=== PATIENT | male | born 1975 | race Hispanic/Latino ===

== ENCOUNTER 2025-08-24 09:40 | Inpatient (IN) | payer OTHER ==
[~2025-08-24] VITALS: Ht 167.6 cm; Wt 114.3 kg
[2025-08-24 11:30] VITALS: BP 139/66; PULSE 50; RESP 22; TEMP 98.1
--- NOTE | 2025-08-24 13:23 | CONS ---
[facility] CARDIOLOGY CONSULTATION REPORT Date Patient Seen: Aug 24, 2025 Time of Visit: 12:45 Requesting Physician: Luis Loya MD Reason for Consultation: CAD History of Present Illness: This is a 49-year-old Latin-Salvadorean male with a past medical history of hypertension, hyperlipidemia on no medical therapy who initially presented to [facility] on 08/23/2025 due to a syncopal episode and associated chest pain. In the business applications developer hours of 08/23/2025 at approximately 3:00 a.m., the patient woke up suddenly complaining of dyspnea and chest pain, he sat up at the edge of the bed and then sustained a syncopal episode. His witnessed that his arms became tense, he fell back onto the bed and had a few seconds of loss of consciousness with the associated bladder incontinence. She did about 3 chest compressions and he regained consciousness. His substernal chest discomfort was described as burning radiating to his neck, there was associated diaphoresis. EMS was summoned and transported him to the hospital. The patient was noted to have a troponin level of 0.044, 0.097 and 0.099 and was admitted for further management. His admission labs were also remarkable for hemoglobin of 14.8, hematocrit of 43.5 and a platelet count of 262. Sodium 134, potassium 4.2, BUN 12 and creatinine of 0.9. BNP of 35. Urine drug screen was negative. He was admitted for further management. He underwent a cardiac catheterization on 08/24/[address] Mushtaq Hernandez demonstrating severe multivessel coronary artery disease including a 99% proximal to mid LAD stenosis, 80% mid LAD stenosis, 70% stenosis in diagonal 2, 50% proximal left circumflex and 70% mid left circumflex stenosis and 80% mid RCA stenosis and 70% distal RCA stenosis. He was transferred to [facility] for coronary artery bypass revascularization. He offers no recurrent chest pain. He does report family history of premature coronary artery disease with 2 brothers having heart disease in her 40s. The patient was also chronic tobacco user reporting 35 years of tobacco use of 2 packs per day, quit 1 year ago. Past Medical History: Hypertension Hyperlipidemia Prior heavy tobacco use, quit 1 year ago Familial premature coronary artery disease Prior rectal bleed with recent colonoscopy demonstrating hemorrhoids Past Surgical History: Prior lumbar spine surgery Left eye surgery to include retinal surgery Family History: 2 brothers with a history of premature coronary artery disease in her 40s Social History: The patient is . 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 Habits: He was a longstanding smoker of 35 years 2 packs per day, quit 1 year ago. Occasionally consumes alcohol but denies illicit drug use Home Meds: None currently Review of Systems: CONST: No fever, fatigue, or weight changes. EYES: No recent vision problems. ENT: No congestion, ear pain, or sore throat. C/V: As per HPI. Denied any palpitations. RESP: No cough, congestion, wheezing or shortness of breath. Positive for loud snoring at times and periods of apnea GI: No abdominal pain, nausea, vomiting, constipation, or diarrhea. : No incontinence or dysuria. SKIN: No rash. NEURO: No headache, focal numbness or weakness, dizziness, or seizures. PSYCH: No depression or anxiety. HEME: No abnormal bruising or bleeding. LYMPH: No swollen glands. Physical Examination: GENERAL: No acute distress. HEAD: Normal with no signs of head trauma. EYES: PERRLA, EOMI, conjunctiva and sclera normal. ENT: Hearing grossly intact, normal oropharynx. NECK: Supple without JVD. There is no tenderness, lymphadenopathy, or masses. No thyromegaly. Normal carotid upstrokes without bruits. LUNGS: Clear breath sounds bilaterally. No wheezes, or rhonchi. HEART: Normal rate and rhythm. Normal S1 and S2 without murmurs, gallop or rub. VASC: Peripheral pulses +2 bilaterally. Right radial catheterization site with small dressing, no edema or hematoma ABD: Bowel sounds normal, soft, nontender, no masses, no organomegaly. No audible bruits. : Not examined LYMPH: No lymphadenopathy noted. EXT: No clubbing, cyanosis or edema. SKIN: No rashes or lesions noted. NEURO: Awake, alert, and oriented x3. No focal sensory or strength deficits noted. Vital Signs (last 8hr) Date Time Temp Pulse Resp B/P (MAP) Pulse Ox O2 Delivery O2 Flow Rate FiO2 08/24/25 11:30 98.1 50 22 139/66 98 Room Air Laboratory: Diagnostics / Radiology: Bilateral carotid Doppler exam 08/23/2025 demonstrated nonobstructive plaque in the left internal carotid artery of 20-30% Right internal carotid artery with 30-40% stenosis and no flow in the right vertebral artery may reflect occlusion Impression and Plan: Small non ST segment elevation DE with troponin of 0.099: Severe multivessel coronary artery disease by cardiac catheterization, with 99% proximal LAD stenosis 08/24/2025: -obtain 1 set of high sensitivity cardiac troponin here -begin IV heparin protocol and topical nitrates -continue with plans for antiplatelet therapy with aspirin 81 mg p.o. daily, statin therapy with combination of ezetimibe -the patient has sinus bradycardia with a heart rate of 50 beats per minute and we will investigate if he was initiated on beta-jem therapy at [facility] but the patient reports he is known to have longstanding slow heart rate in the past -surgical consultation is pending -Obtain 2D echocardiogram - smoking cessation counseling Mixed dyslipidemia: -Lipid panel 08/24/2025 demonstrating total cholesterol of 216, triglycerides 157, HDL 38 and LDL of 183 -continue atorvastatin 80 mg daily -add ezetemibe 10mg po daily Hypertension: -trend blood pressure and restart medications as he was taking at [facility] Prediabetes: -Check HgA1c Nonobstructive carotid artery disease by carotid Doppler exam 08/23/2025 demonstrating: -Bilateral carotid Doppler exam 08/23/2025 demonstrated nonobstructive plaque in the left internal carotid artery of 20-30% -Right internal carotid artery with 30-40% stenosis and no flow in the right vertebral artery may reflect occlusion -continue plans for antiplatelet therapy Probable sleep apnea: -Will need outpatient follow up and sleep study PHYSICIAN ATTESTATION OF PHYSICIAN COOK [employer] AND CHIPS DOCUMENTATION: I attest that I was physically present for the spann portions of the service and evaluated the patient with the Physician Vc++ Developer, and I reviewed and discussed the case with the Physician Vc++ Developer and made modifications to the Physician Vc++ Developer's findings and plans of care as documented above MICHELLE BURGOS Aug 24, 2025 13:23 JAMES BARBOSA MD Aug 24, 2025 13:40
[2025-08-24] MEDS ORDERED: NITROGLYCERIN 30 GM TUBE TD SCH (13:30)
[2025-08-24] MEDS ORDERED: NITROGLYCERIN 0.4 MG SL TAB SL PRN (13:30)
[2025-08-24 13:34] LABS: IMMATURE GRANULOCYTE ABSOLUTE 0.01 K/uL (0-1); NUCLEATED RED BLOOD CELLS 0.0 % (0.0-0.19); PLATELET COUNT (AUTO) 256 K/uL (130-400); RED BLOOD CELL COUNT(AUTO) 4.63 MIL/uL (4.50-6.20); RED CELL DISTRIBUTION WIDTH 13.4 % (11.0-15.5); WHITE BLOOD COUNT (AUTO) 7.5 K/uL (4.8-10.8)
[2025-08-24 13:36] LABS: INR 0.94 (0.85-1.15)
[2025-08-24 13:49] LABS: ASPARTATE AMINOTRANSFERASE 27.0 U/L (10-37); CREATININE 0.9 mg/dL (0.5-1.3); GLOMERULAR FILTR. RATE CALC 104.0 mL/min (>90); GLUCOSE,RANDOM 90.0 mg/dL (70-105); LDL DIRECT 156.0 mg/dL (0-99); SODIUM SERUM 137.0 mmol/L (136-145); TOTAL PROTEIN, SERUM 7.3 g/dL (6.0-8.3); UREA NITROGEN, BLOOD 12.0 mg/dL (7-18)
--- NOTE | 2025-08-24 14:54 | HMCIMG ---
EXAM: CR Chest, 1 View. CLINICAL HISTORY: assess for any significant infiltrates, pre op for CABG COMPARISON: None provided. FINDINGS: LUNGS: The lungs show no infiltrate or other acute finding. PLEURAL SPACES: No evidence of pleural effusion or pneumothorax. MEDIASTINUM: Cardiac size and mediastinal contours within normal limits. BONES: No aggressive appearing osseous lesion seen. IMPRESSION: No acute cardiopulmonary pathology is evident. /[place]
[2025-08-24] MEDS ORDERED: MAGNESIUM SULFATE 1 GM/2 ML VIAL IM ONE (15:10)
[2025-08-24] MEDS ORDERED: LIDOCAINE PF 100MG/5ML (2%) SYRINGE 5ML IVP ONE (15:10)
[2025-08-24] MEDS ORDERED: CACL 1GM SYG IVP ONE (15:10)
[2025-08-24] MEDS ORDERED: MANNITOL 25% 50ML VIAL IV ONE (15:10)
[2025-08-24] MEDS ORDERED: ALBUMIN (HUMAN) 25% 50 ML IV ONE (15:10)
[2025-08-24] MEDS ORDERED: SODIUM BICARB 8.4% 50ML SYRINGE IVP ONE (15:10)
[2025-08-24 16:00] VITALS: BP 120/67; PULSE 52; RESP 24; TEMP 97.9
[2025-08-24] MEDS ORDERED: PoTASSium chloRIDE 20MEQ ER 20 MEQ ERTAB PO PRN (16:00)
[2025-08-24] MEDS ORDERED: PoTASSium chl 10% ELIXIR 20MEQ 20 MEQ/15 ML UDCUP PO PRN (16:00)
--- NOTE | 2025-08-24 16:00 | HP ---
[facility] HISTORY AND PHYSICAL Date of Service: Aug 24, 2025 Time of Service: 15:52 HISTORY OF PRESENT ILLNESS: Date of service: 08/24/2025, patient was seen in [facility] room 224 This is a 49-year-old male with underlying history of obesity, hyperlipidemia who presented as a transfer from [facility] for evaluation by cardiovascular surgery for coronary artery bypass grafting. Patient and family reports that he initially presented to [facility] on 08/23/2025 when he had presented with chest pain and syncopal episode. Patient woke up close to 3:00 a.m. on 08/23/2025 with complaints of dyspnea and chest pain. He sat at the edge and had a syncopal episode. reported doing about three chest compressions and patient regained consciousness. Patient on presentation to [facility] ER was noted to have mild elevation of troponin. CT head without contrast showed no acute intracranial abnormality. Patient was admitted with NSTEMI and underwent cardiac catheterization by Dr. Mushtaq Hernandez today was found to have severe multivessel coronary artery disease with findings of 99% proximal to mid LAD stenosis, 80% mid LAD stenosis, 70% stenosis in diagonal 2, 50% proximal left circumflex and 70% mid left circumflex stenosis and 80% mid RCA stenosis and 70% distal RCA stenosis. Patient was transferred to [facility] for evaluation for coronary artery bypass grafting. Patient on bedside examination denies any active chest pain, chest pressure, dizziness, headache, focal weakness of upper or lower extremities. Patient will be admitted under hospitalist service and will be monitored closely. REVIEW OF SYSTEMS CONSTITUTIONAL: Denies fevers, chills, or night sweats. No unintentional weight loss reported. NEUROLOGICAL: Denies headache, amaurosis fugax, motor weakness, sensory deficit, vertigo/spinning sensation, gait abnormalities, or tremors. ENT: No hearing loss, otalgia, otorrhea, rhinitis, rhinorrhea, hoarseness, or sore throat. CARDIOVASCULAR: chest pain with syncope on 08/23/2025 PULMONARY: Denies any shortness of breath, cough, phlegm/sputum, hemoptysis, pleuritic chest pain. SLEEP: Denies morning headaches, daytime somnolence or napping. Denies difficulty falling asleep, staying asleep, waking from sleep. Denies knowledge of snoring. GASTROINTESTINAL: Denies any type of dysphagia to either liquids or solids. Denies nausea, vomiting, pyrosis, early satiety, abdominal pain, diarrhea, constipation, or changes in stool consistency or caliber. Denies coffee-ground emesis, hematemesis, hematochezia, or melanotic stools. GENITOURINARY: Denies frequency, urgency, nocturia, hematuria or incontinence (Storage/Irritative symptoms.) Low urinary stream, straining to void, urinary intermittency or hesitancy, splitting of the voiding stream, terminal dribbling. ENDOCRINOLOGIC: Denies polyuria, polydipsia, polyphagia or heat/cold intolerances. HEMATOLOGIC: Denies thrombophilia/previous clots, or coagulopathy/bleeding disorders. ONCOLOGIC: Denies personal history of malignancy. DERMATOLOGIC: Denies rashes or pruritus. PSYCHIATRIC: Denies any suicidal or homicidal ideation. Denies hallucinations. PAST MEDICAL HISTORY: Hyperlipidemia, obesity PAST SURGICAL HISTORY: Patient denies any history of bleeding issues, denies any previous history of surgeries PAST SOCIAL HISTORY: Patient quit smoking about one year ago, he has 35 pack year smoking history, only drinks alcohol socially, denies any drug use FAMILY HISTORY: Patient has history of premature coronary artery disease with father who suffered a [place] in his 60s, brother had a heart disease in his 50s, mother had heart disease in her 50s Allergies: No known drug allergies Home medications: Patient reports being on a cholesterol medication at home, unable to recall the name Coded Allergies: No Known Allergies (Unverified Allergy, Unknown, 08/24/25) PHYSICAL EXAM GENERAL APPEARANCE: The patient is awake, alert, and oriented, in no acute cardiopulmonary distress. NEUROLOGICAL: Cranial nerves II-XII grossly intact. Motor is 5/5 in bilateral upper and lower extremities proximal to distal. No sensory deficits. HEENT: Face is symmetric. Pupils are equal and reactive. Extraocular movements are intact. NECK: Supple. No JVD. No thyromegaly. No submental, submandibular, pre- /postauricular, occipital or supraclavicular lymphadenopathy. CHEST: Normal chest expansion. No Telemetry. LUNGS: Absence of any rales, rhonchi or any wheezing. CARDIOVASCULAR: Regular. S1 and S2 normal. No appreciable rubs, murmurs or gallops. ABDOMEN: Soft, nontender, and nondistended. There is no rebound, voluntary guarding, or rigidity. : Deferred. No Guerra. EXTREMITIES: Non-edematous and not cyanotic. No clubbing. Good capillary refill. SKIN: No skin breakdown. Vital Sign (Last 24 Hours) 08/24/25 11:30 Temp 98.1 Pulse 50 Resp 22 B/P (MAP) 139/66 Pulse Ox 98 O2 Delivery Room Air LABS: Laboratory: Test 08/24/25 13:04 Range/Units White Blood Count 7.5 4.8-10.8 K/uL Red Blood Count 4.63 4.50-6.20 MIL/uL Hemoglobin 14.6 14.0-18.0 g/dL Hematocrit 43.7 42-54 % Mean Corpuscular Volume 94.4 79-99 fL Mean Corpuscular Hemoglobin 31.5 27.0-33.0 pg Mean Corpuscular Hemoglobin Concent 33.4 32.0-36.0 g/dL Red Cell Distribution Width 13.4 11.0-15.5 % Platelet Count 256 130-400 K/uL Mean Platelet Volume 9.7 7.5-10.5 fL Immature Granulocyte % (Auto) 0.1 0-1 % Neutrophils (%) (Auto) 36.6 L 40.0-77.0 % Lymphocytes (%) (Auto) 55.5 H 21.0-51.0 % Monocytes (%) (Auto) 6.6 3.0-13.0 % Eosinophils (%) (Auto) 0.8 0.0-8.0 % Basophils (%) (Auto) 0.4 0.0-5.0 % Neutrophils # (Auto) 2.8 1.8-7.7 K/uL Lymphocytes # (Auto) 4.2 1.0-4.8 K/uL Monocytes # (Auto) 0.5 0.1-1.0 K/uL Eosinophils # (Auto) 0.06 0.00-0.70 K/uL Basophils # (Auto) 0.03 0.00-0.20 K/uL Absolute Immature Granulocyte (auto 0.01 0-1 K/uL Nucleated Red Blood Cells 0.0 0.0-0.19 % Prothrombin Time 10.0 9.6-11.6 SEC Prothromb Time International Ratio 0.94 0.85-1.15 Activated Partial Thromboplast Time 24.5 L 26.3-35.5 SEC Sodium Level 137 136-145 mmol/L Potassium Level 4.0 3.5-5.1 mmol/L Chloride Level 101 101-111 mmol/L Carbon Dioxide Level 30 21-32 mmol/L Blood Urea Nitrogen 12 7-18 mg/dL Creatinine 0.9 0.5-1.3 mg/dL Glomerular Filtration Rate Calc 104 >90 mL/min Random Glucose 90 70-105 mg/dL Hemoglobin A1c 6.1 H 4.0-6.0 % Estimated Average Glucose (eAG) 128 H 70-126 mg/dL Total Calcium 8.4 L 8.5-10.1 mg/dL Magnesium Level 2.00 1.80-2.40 mg/dL Total Bilirubin 0.5 0.2-1.0 mg/dL Aspartate Amino Transf (AST/SGOT) 27 10-37 U/L Alanine Aminotransferase (ALT/SGPT) 58 12-78 U/L Alkaline Phosphatase 69 50-136 U/L Troponin I High Sensitivity 251 *H 4-75 ng/L Total Protein 7.3 6.0-8.3 g/dL Albumin 3.6 3.5-5.0 g/dL Triglycerides Level 191 30-200 mg/dL Cholesterol Level 237 H <200 mg/dL LDL Cholesterol 156 H 0-99 mg/dL HDL Cholesterol 37 29-71 mg/dL Thyroid Stimulating Hormone (TSH) 9.27 H 0.36-3.74 uIU/mL Current Medications Medications (Trade) Dose Ordered Sig/Allison Route PRN Reason Start Time Stop Time Status Last Admin Dose Admin Acetaminophen (TYLenol 325MG TAB) 650 mg Q6H PRN PO MILD PAIN (1-3) 08/24/25 13:30 09/23/25 13:29 Aspirin (Aspirin 81mg Chew Tab) 81 mg DAILY PO 08/25/25 09:00 09/24/25 08:59 Atorvastatin Calcium (LIPItor 40MG) 40 mg HS PO 08/24/25 21:00 08/24/25 13:42 DC Atorvastatin Calcium (LIPItor 40MG) 80 mg HS PO 08/24/25 21:00 09/23/25 20:59 EZETIMIBE (Zetia) 10 mg DAILY PO 08/25/25 09:00 09/24/25 08:59 Famotidine (Pepcid 20mg Tab) 20 mg BID PO 08/24/25 21:00 08/24/25 13:16 DC Famotidine (Pepcid 20mg Tab) 20 mg BID PO 08/24/25 21:00 09/23/25 20:59 Heparin Sodium (Porcine) (HEParin 5,000 UNIT VIAL) *calculation based on ACTUAL B... AD PRN IV HEPARIN PROTOCOL 08/24/25 14:30 09/23/25 14:29 Heparin Sodium/ Dextrose 250 ml @ 0 mls/hr Q6H IV 08/24/25 14:30 09/23/25 14:29 Magnesium Sulfate 50 ml @ 0 mls/hr PROTOCOL IV 08/24/25 16:00 09/23/25 15:59 Nitroglycerin (Nitro-Bid) 0.5 gm Q8H TD 08/24/25 13:30 08/24/25 15:35 DC Nitroglycerin (Nitroglycerin 1gm Oint) 0.5 inch Q8H TD 08/24/25 16:00 09/23/25 15:59 Nitroglycerin (Nitrostat) 0.4 mg AD PRN SL CHEST PAIN 08/24/25 13:30 09/23/25 13:29 Ondansetron HCl (zoFRAN 4MG INJ) 4 mg Q6H PRN IVP NAUSEA/VOMITING 08/24/25 13:30 09/23/25 13:29 Potassium Chloride 100 ml @ 100 mls/hr AD PRN IV POTASSIUM PROTOCOL 08/24/25 16:00 09/23/25 15:59 Potassium Chloride (K-Dur/Klor-Con 20meq) 20 meq AD PRN PO POTASSIUM PROTOCOL 08/24/25 16:00 09/23/25 15:59 Potassium Chloride (KCl 10% Elixir 20meq/15ml) 20 meq AD PRN PO POTASSIUM PROTOCOL 08/24/25 16:00 09/23/25 15:59 DIAGNOSTICS / RADIOLOGY: SERVICE 1312 REASON: assess for any significant infiltrates, pre op for CABG ORDERING PHYSICIAN: LUIS LOYA MD PROCEDURE: CXR1VW - CHEST 1VW EXAM: CR Chest, 1 View. CLINICAL HISTORY: assess for any significant infiltrates, pre op for CABG COMPARISON: None provided. FINDINGS: LUNGS: The lungs show no infiltrate or other acute finding. PLEURAL SPACES: No evidence of pleural effusion or pneumothorax. MEDIASTINUM: Cardiac size and mediastinal contours within normal limits. BONES: No aggressive appearing osseous lesion seen. IMPRESSION: No acute cardiopulmonary pathology is evident. /[place] DICTATED BY: MARICRUZ PRINCE Jr., MD DATE: 08/24/251552 ELECTRONICALLY SIGNED BY: MARICRUZ PRINCE Jr., MD DATE: 08/24/251552 ASSESSMENT: NSTEMI, POA Syncope on 08/23/2025, POA Status post cardiac catheterization with findings of severe multivessel coronary artery disease with 99% proximal LAD stenosis, by Dr. Mushtaq Julian, 08/24/2025 History of uncontrolled hyperlipidemia, POA Hypertension, POA Prediabetes, POA Nonobstructive carotid artery disease, POA Rule out obstructive sleep apnea, POA Obesity, POA Prior history of significant smoking, 35 pack year, quit smoking last year, POA PLAN: Patient will continue with admission in cardiac telemetry floor under telemetry monitoring We will follow up recommendations by cardiovascular surgery, appreciate recommendations by Dr. Reese with Cardiology Continue with aspirin 81 mg daily, continue with IV anticoagulation with heparin drip Patient will be started on high-dose Lipitor 80 mg daily, Zetia 10 mg daily Patient has resting bradycardia, we will hold beta blockers currently We will follow up 2D echocardiogram, we will check lipid panel, A1c, TSH Findings of carotid ultrasound showed nonobstructive plaque in the left internal carotid artery with 20-30% stenosis, right ICA with 30-40% stenosis and no flow in the right vertebral artery which could indicate occlusion, recommendations by Cardiology to continue with antiplatelet therapy All labs will be repeated in the morning We will maintain potassium greater than four and magnesium greater than two Patient will benefit from sleep study as outpatient to assess for sleep apnea We will keep patient on GI prophylaxis with Pepcid Date of service: 08/24/2025 Plan of care was discussed with patient and family at bedside, Luis Loya MD Advanced Care Planning: Which of the following were discussed: Hospice care: Yes __ No _X_ Therapeutic options: Yes _X_ No __ Advance directives: Yes _X_ No __ Other discussions: Discussed with who?: Patient Voluntary nature of this service was explained to the patient? Yes _x_ No __ Amount of time spent: 20 minutes LUIS LOYA MD Aug 24, 2025 16:00
[2025-08-24] MEDS: NITROGLYCERIN 1GM OINT 1 INCH/1GM TD SCH (16:53)
[2025-08-24] MEDS: MAGNESIUM 2GM PREMIX 50ML 50 ML IV SCH (16:53)
[2025-08-24 17:22] VITALS: O2SAT 99
[2025-08-24 19:50] VITALS: O2SAT 91
[2025-08-24 20:00] VITALS: BP 123/67; PULSE 56; RESP 18; TEMP 98.4
[2025-08-24] MEDS ORDERED: FAMOTIDINE 20MG TAB PO SCH (21:00)
[2025-08-24] MEDS: FAMOTIDINE 20MG TAB PO SCH (21:22)
[2025-08-24 23:11] LABS: INR 0.97 (0.85-1.15)
[2025-08-25] VITALS (46 sets, daily range): BP systolic 85–235; BP diastolic 43–226; PULSE 52–115; RESP 9–22; TEMP 97.5–99.7; O2SAT 97–100
[2025-08-25 03:46] LABS: IMMATURE GRANULOCYTE ABSOLUTE 0.02 K/uL (0-1); NUCLEATED RED BLOOD CELLS 0.0 % (0.0-0.19); PLATELET COUNT (AUTO) 279 K/uL (130-400); RED BLOOD CELL COUNT(AUTO) 4.50 MIL/uL (4.50-6.20); RED CELL DISTRIBUTION WIDTH 13.4 % (11.0-15.5); WHITE BLOOD COUNT (AUTO) 8.1 K/uL (4.8-10.8)
[2025-08-25 04:01] LABS: ASPARTATE AMINOTRANSFERASE 29.0 U/L (10-37); CREATININE 1.0 mg/dL (0.5-1.3); GLOMERULAR FILTR. RATE CALC 92.0 mL/min (>90); GLUCOSE,RANDOM 97.0 mg/dL (70-105); INR 0.99 (0.85-1.15); LDL DIRECT 137.0 mg/dL (0-99); SODIUM SERUM 134.0 mmol/L (136-145); TOTAL PROTEIN, SERUM 7.3 g/dL (6.0-8.3); UREA NITROGEN, BLOOD 13.0 mg/dL (7-18)
--- NOTE | 2025-08-25 05:32 | CONS ---
HISTORY OF PRESENT ILLNESS: The patient is a 49-year-old male who was transferred from [facility] after suffering a non-ST elevation CA. He came to the hospital initially due to an episode of chest pain followed by a brief episode of syncope. This was witnessed by his . The patient ruled in for [id number] CA. He has a family history of coronary artery disease. He has hypertension and hyperlipidemia and has a 2-pack per day smoking history for the last 35 years. He underwent a heart catheterization in [facility], which revealed multivessel coronary artery disease. He was transferred to [facility] for surgical revascularization. PHYSICAL EXAMINATION: VITAL SIGNS: Reveal temperature 98.1, blood pressure 139/66, pulse 50, respirations 22, oxygen saturation 98% on room air. HEENT: Normocephalic, atraumatic. Extraocular movements intact. HEART: S1, S2, bradycardic. LUNGS: Unlabored at rest with mild rhonchi bilaterally. ABDOMEN: Reveals mild obesity with positive bowel sounds. ASSESSMENT AND PLAN: Multivessel coronary artery disease. Recommend coronary bypass grafting. Risks of , stroke, bleeding, transfusion, infection, arrhythmias, etc., were all discussed with the patient in the presence of his and daughter. He understands and wishes to proceed. TID: [id number] RECEIPT: [id number]
--- NOTE | 2025-08-25 07:34 | EKG ---
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
--- NOTE | 2025-08-25 08:47 | NUR ---
DCP: HOME Pt reports he was transferred from [place] for higher level of care. Pt lives in [place] with his Tara Caldwell [phone]. Pt works at [employer] and states he is active, drives and independent of all his ADLS. Pt uses no DME or in home care services. PCP is Jose Mcmahan and uses [facility] for rx. Pt states he will have help at home after dc. DCP is home
[2025-08-25] MEDS: EZETIMIBE 10 MG TAB PO SCH (09:00)
[2025-08-25] MEDS: ASPIRIN 81MG CHEW TAB PO SCH (09:00)
--- NOTE | 2025-08-25 09:04 | HMCIMG ---
CHEST 1VW REASON: preop CABG COMPARISON: Prior chest radiograph from 08/24/2025 is available. FINDINGS: Single view of the chest was obtained. Lungs are clear. Heart size is normal. There is no pulmonary vascular congestion. Mediastinum and bony thorax appear unremarkable. The study is unchanged from prior study. IMPRESSION: 1. Normal single view chest x-ray.
--- NOTE | 2025-08-25 09:16 | PN ---
[facility] CARDIOLOGY PROGRESS NOTE Date Patient Seen: Aug 25, 2025 Time of Visit: 09:09 Interval History: This is a 49-year-old Latin-Ecuadorean male with a past medical history of hypertension, hyperlipidemia on no prior medical therapy, premature coronary art jorge disease with 2 brothers having heart disease in her 40s and prior heavy tobacco use reporting 35 years of tobacco use of 2 packs per day but quit 1 year ago, who initially presented to [facility] on 08/23/2025 due to a syncopal episode and associated chest pain. 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 His witnessed that his arms became tense, he fell back onto the bed and had a few seconds of loss of consciousness with the associated bladder incontinence. She did about 3 chest compressions and he regained consciousness. His substernal chest discomfort was described as burning radiating to his neck, there was associated diaphoresis. He ruled in for a small non ST segment elevation ME with troponin levels of 0.044, 0.097 and 0.099 ([place] [facility] He underwent a cardiac catheterization on 08/24/[address] Mushtaq Hernandez demonstrating severe multivessel coronary artery disease including a 30% left main, 99% proximal to mid LAD stenosis, 80% mid LAD stenosis, 70% stenosis in diagonal 2, 50% proximal left circumflex and 70% mid left circumflex stenosis and 80% mid RCA stenosis and 70% distal RCA stenosis. He was transferred to [facility] for coronary artery bypass re vascularization and is scheduled to undergo coronary artery bypass this morning. Physical Examination: GENERAL: No acute distress. HEAD: Normal with no signs of head trauma. EYES: PERRLA, EOMI, conjunctiva and sclera normal. NECK: Supple without JVD. There is no tenderness, lymphadenopathy, or masses. No thyromegaly. Normal carotid upstrokes without bruits. LUNGS: Clear breath sounds bilaterally. No wheezes, or rhonchi. HEART: Normal rate and rhythm. Normal S1 and S2 without murmurs, gallop or rub. VASC: Peripheral pulses +2 bilaterally. EXT: No clubbing, cyanosis or edema. NEURO: Awake, alert, and oriented x3. No focal neurological deficits noted. Laboratory: Hematology Labs: Test 08/25/25 03:08 Range/Units White Blood Count 8.1 4.8-10.8 K/uL Red Blood Count 4.50 4.50-6.20 MIL/uL Hemoglobin 14.2 14.0-18.0 g/dL Hematocrit 42.0 42-54 % Mean Corpuscular Volume 93.3 79-99 fL Mean Corpuscular Hemoglobin 31.6 27.0-33.0 pg Mean Corpuscular Hemoglobin Concent 33.8 32.0-36.0 g/dL Red Cell Distribution Width 13.4 11.0-15.5 % Platelet Count 279 130-400 K/uL Mean Platelet Volume 10.2 7.5-10.5 fL Immature Granulocyte % (Auto) 0.2 0-1 % Neutrophils (%) (Auto) 40.0 40.0-77.0 % Lymphocytes (%) (Auto) 51.2 H 21.0-51.0 % Monocytes (%) (Auto) 7.1 3.0-13.0 % Eosinophils (%) (Auto) 1.0 0.0-8.0 % Basophils (%) (Auto) 0.5 0.0-5.0 % Neutrophils # (Auto) 3.3 1.8-7.7 K/uL Lymphocytes # (Auto) 4.2 1.0-4.8 K/uL Monocytes # (Auto) 0.6 0.1-1.0 K/uL Eosinophils # (Auto) 0.08 0.00-0.70 K/uL Basophils # (Auto) 0.04 0.00-0.20 K/uL Absolute Immature Granulocyte (auto 0.02 0-1 K/uL Nucleated Red Blood Cells 0.0 0.0-0.19 % Chemistry Labs: Test 08/25/25 03:08 08/24/25 13:04 Range/Units Sodium Level 134 L 136-145 mmol/L Potassium Level 4.0 3.5-5.1 mmol/L Chloride Level 100 L 101-111 mmol/L Carbon Dioxide Level 29 21-32 mmol/L Blood Urea Nitrogen 13 7-18 mg/dL Creatinine 1.0 0.5-1.3 mg/dL Glomerular Filtration Rate Calc 92 >90 mL/min Random Glucose 97 70-105 mg/dL Total Calcium 8.1 L 8.5-10.1 mg/dL Magnesium Level 2.20 1.80-2.40 mg/dL Total Bilirubin 0.5 0.2-1.0 mg/dL Aspartate Amino Transf (AST/SGOT) 29 10-37 U/L Alanine Aminotransferase (ALT/SGPT) 52 12-78 U/L Alkaline Phosphatase 65 50-136 U/L Total Protein 7.3 6.0-8.3 g/dL Albumin 3.4 L 3.5-5.0 g/dL Triglycerides Level 170 30-200 mg/dL Cholesterol Level 207 H <200 mg/dL LDL Cholesterol 137 H 0-99 mg/dL HDL Cholesterol 35 29-71 mg/dL Hemoglobin A1c 6.1 H 4.0-6.0 % Estimated Average Glucose (eAG) 128 H 70-126 mg/dL Troponin I High Sensitivity 251 *H 4-75 ng/L Thyroid Stimulating Hormone (TSH) 9.27 H 0.36-3.74 uIU/mL Coagulation Labs: Test 08/25/25 03:08 Range/Units Prothrombin Time 10.5 9.6-11.6 SEC Prothromb Time International Ratio 0.99 0.85-1.15 Activated Partial Thromboplast Time 92.8 *H 26.3-35.5 SEC Diagnostics / Radiology: 2D echocardiogram is pending Impression and Plan: Small non ST segment elevation ME with troponin of 0.099 (high sensitivity troponin 08/24/2025 at 251): Severe multivessel coronary artery disease by cardiac catheterization, with 99% proximal LAD stenosis 08/24/2025: -the patient has been seen by Cardiothoracic surgery with plans to proceed with coronary revascularization today -IV heparin has been discontinued -continue plans for surgical revascularization and we will follow-up postoperatively -2D echocardiogram is pending Mixed dyslipidemia: -Lipid panel 08/24/2025 demonstrating total cholesterol of 216, triglycerides 157, HDL 38 and LDL of 183 -continue atorvastatin 80 mg daily -add ezetemibe 10mg po daily Hypertension: -blood pressure stable we will follow postoperatively Resting sinus bradycardia: -avoid AV node blocking agents/beta-jem therapy New diagnosis of hypothyroidism with TSH of 9.27: -begin levothyroxine therapy per primary team Prediabetes: -hemoglobin A1c of 6.1 Nonobstructive carotid artery disease by carotid Doppler exam 08/23/2025 demonstrating: -Bilateral carotid Doppler exam 08/23/2025 demonstrated nonobstructive plaque in the left internal carotid artery of 20-30% -Right internal carotid artery with 30-40% stenosis and no flow in the right vertebral artery may reflect occlusion -continue plans for antiplatelet therapy Probable sleep apnea: -Will need outpatient follow up and sleep study PHYSICIAN ATTESTATION OF PHYSICIAN PROSTHETIC DENTIST DOCUMENTATION: I attest that I was physically present for the spann portions of the service and evaluated the patient with the Physician Grapple Crew Leader, and I reviewed and discussed the case with the Physician Grapple Crew Leader and made modifications to the Physician Grapple Crew Leader's findings and plans of care as documented above MICHELLE BURGOS Aug 25, 2025 09:16 JAMES BARBOSA MD Aug 26, 2025 09:46
[2025-08-25] MEDS ORDERED: NOREPINEPHRIN 8MG/250ML NS 250 ML IV PRN (10:00)
--- NOTE | 2025-08-25 10:50 | NUR ---
PT BROUGHT DOWN FROM RM 224 TO HOLDING AREA VSS NAD PT CURRENTLY DENIES CHEST PAIN/DISCOMFORT
[2025-08-25] MEDS ORDERED: NOREPINEPHRINE BITARTRATE/D5W 250 ML IV PRN (11:00)
[2025-08-25] MEDS ORDERED: HEParin-NS 1,000 UNIT/500 ML 500 ML IV ONE (11:04)
[2025-08-25] MEDS ORDERED: NITROGLYCERIN 50MG/D5W 250ML 1 BOT ONE (11:04)
[2025-08-25] MEDS ORDERED: LIDOCAINE 2G/250ML 250 ML IV ONE (11:06)
[2025-08-25] MEDS: 0.9%NACL 1000ML 1,000 ML IV ONE (11:13)
[2025-08-25] MEDS ORDERED: MIDAZOLAM HCL 1 MG/ML 2ML VIAL ONE (11:21)
[2025-08-25] MEDS ORDERED: PROTamine SULFate 10 MG/ML 25ML VIAL IV ONE (11:55)
[2025-08-25] MEDS ORDERED: LIDOCAINE PF 100MG/5ML (2%) SYRINGE 5ML ONE ×2 (11:55→12:46)
[2025-08-25] MEDS ORDERED: GLYCOPYRROLATE 0.2 MG/ML 5 ML VIAL ONE (11:55)
[2025-08-25] MEDS ORDERED: NOREPINEPHRINE BITARTRATE 1 MG/1 ML ML IV ONE (11:55)
[2025-08-25] MEDS ORDERED: SODIUM BICARB 50MEQ 50ML VIAL 200 ML ONE (11:55)
[2025-08-25 12:23] LABS: ABG BASE EXCESS -0.4 mmol/L (-2.0-3.0); ABG HCO3 26.3 mmol/L (21.0-28.0); ABG OXYGEN SATURATION 99.5 % (94.0-98.0); ABG PCO2 51 mmHg (35-48); ABG PH 7.331 (7.350-7.450); CARBON MONOXIDE 0.6 % (0.5-1.5); DEVICE COMMENT 1; PO2, ARTERIAL BG 228.8 mmHg (83.0-108.0); TEMPERATURE, CELSIUS BG 37.0 CELSIUS (35.5-37.0)
[2025-08-25] MEDS ORDERED: ETOMIDATE 20MG VIAL ONE (12:47)
[2025-08-25] MEDS ORDERED: SODIUM BICARB 50MEQ 50ML VIAL 100 ML ONE (12:47)
[2025-08-25] MEDS ORDERED: AMIOdarone 150MG/100ML BAG 100 ML ONE (12:47)
[2025-08-25] MEDS ORDERED: SODIUM BICARB 50MEQ 50ML VIAL 300 ML ONE (12:48)
[2025-08-25] MEDS ORDERED: COMPOUND IV MISC 1 EACH IVSOLN MISC PRN (13:30)
[2025-08-25] MEDS ORDERED: NOREPINEPHRINE BITARTRATE 8 MG in DEXTROSE 5%-WATER 250 ML IV PRN (13:30)
[2025-08-25] MEDS ORDERED: MAGNESIUM HYDROXIDE 30 ML/UDCUP PO PRN (13:30)
[2025-08-25] MEDS ORDERED: GLUCAGON 1MG KIT 1 MG ML IM PRN (13:30)
[2025-08-25] MEDS ORDERED: DEXTROSE 50%-WATER 50 ML DISP.SYRIN IV PRN (13:30)
[2025-08-25] MEDS ORDERED: COMPOUND IV REFRIGERATED 1 EACH IVSOLN MISC PRN (13:30)
[2025-08-25] MEDS ORDERED: NITROGLYCERIN 50MG/D5W 250ML 250 BOT IV SCH (13:30)
[2025-08-25] MEDS ORDERED: SODIUM BICARB 50MEQ 50ML VIAL IV PRN (13:30)
[2025-08-25] MEDS ORDERED: 0.9%NACL 10ML VIAL IVP PRN (13:30)
[2025-08-25 13:41] LABS: ABG BASE EXCESS -3.5 mmol/L (-2.0-3.0); ABG HCO3 22.3 mmol/L (21.0-28.0); ABG OXYGEN SATURATION 99.6 % (94.0-98.0); ABG PCO2 43 mmHg (35-48); ABG PH 7.335 (7.350-7.450); CARBON MONOXIDE 0.2 % (0.5-1.5); DEVICE COMMENT 2; PO2, ARTERIAL BG 332.5 mmHg (83.0-108.0); TEMPERATURE, CELSIUS BG 37.0 CELSIUS (35.5-37.0)
[2025-08-25] MEDS: PAPAVERINE HCL 30 MG/ML 2ML VIAL ONE (13:58)
[2025-08-25 13:59] LABS: ABG BASE EXCESS 0.8 mmol/L (-2.0-3.0); ABG HCO3 24.4 mmol/L (21.0-28.0); ABG OXYGEN SATURATION 99.2 % (94.0-98.0); ABG PCO2 36 mmHg (35-48); ABG PH 7.454 (7.350-7.450); CARBON MONOXIDE 0 % (0.5-1.5); DEVICE COMMENT 3; PO2, ARTERIAL BG 197.2 mmHg (83.0-108.0); TEMPERATURE, CELSIUS BG 37.0 CELSIUS (35.5-37.0)
[2025-08-25 14:12] LABS: ABG OXYGEN SATURATION 70.0 % (94.0-98.0); BASE EXCESS,VENOUS BLOOD GAS -1.7 (-2.0-3.0); DEVICE COMMENT 4; HCO3,VENOUS BLOOD GAS 23.9 (22.0-29.0); PCO2,VENOUS BLOOD GAS 43 (38-54); PH,VENOUS BLOOD GAS 7.358 (7.320-7.430); PO2,VENOUS BLOOD GAS 37.7 mmHg (23.0-48.0); TEMPERATURE, CELSIUS BG 37.0 CELSIUS (35.5-37.0)
[2025-08-25 14:46] LABS: ABG BASE EXCESS -1.2 mmol/L (-2.0-3.0); ABG HCO3 23.0 mmol/L (21.0-28.0); ABG OXYGEN SATURATION 99.2 % (94.0-98.0); ABG PCO2 36 mmHg (35-48); ABG PH 7.419 (7.350-7.450); CARBON MONOXIDE 0.3 % (0.5-1.5); DEVICE COMMENT 5; PO2, ARTERIAL BG 332.5 mmHg (83.0-108.0); TEMPERATURE, CELSIUS BG 37.0 CELSIUS (35.5-37.0)
[2025-08-25 15:12] LABS: ABG BASE EXCESS -1.0 mmol/L (-2.0-3.0); ABG HCO3 23.3 mmol/L (21.0-28.0); ABG OXYGEN SATURATION 99.2 % (94.0-98.0); ABG PCO2 37 mmHg (35-48); ABG PH 7.416 (7.350-7.450); CARBON MONOXIDE 0.3 % (0.5-1.5); DEVICE COMMENT 7; PO2, ARTERIAL BG 309.0 mmHg (83.0-108.0); TEMPERATURE, CELSIUS BG 37.0 CELSIUS (35.5-37.0)
--- NOTE | 2025-08-25 15:36 | PN ---
[facility] PROGRESS NOTE Date of Service: Aug 25, 2025 Time of Service: 15:[address] Moss SUBJECTIVE: [08/24 This is a 49-year-old male with underlying history of obesity, hyperlipidemia who presented as a transfer from [facility] for evaluation by cardiovascular surgery for coronary artery bypass grafting. Patient and family reports that he initially presented to [facility] on 08/23/2025 when he had presented with chest pain and syncopal episode. Patient woke up close to 3:00 a.m. on 08/23/2025 with complaints of dyspnea and chest pain. He sat at the edge and had a syncopal episode. reported doing about three chest compressions and patient regained consciousness. Patient on presentation to [facility] was noted to have mild elevation of troponin. CT head without contrast showed no acute intracranial abnormality. Patient was admitted with NSTEMI and underwent cardiac catheterization by Dr. Mushtaq Hernandez today was found to have severe multivessel coronary artery disease with findings of 99% proximal to mid LAD stenosis, 80% mid LAD stenosis, 70% stenosis in diagonal 2, 50% proximal left circumflex and 70% mid left circumflex stenosis and 80% mid RCA stenosis and 70% distal RCA stenosis. Patient was transferred to [facility] for evaluation for coronary artery bypass grafting. Patient on bedside examination denies any active chest pain, chest pressure, dizziness, headache, focal weakness of upper or lower extremities. Patient will be admitted under hospitalist service and will be monitored closely. 08/25 patient was seen by nurse practitioner physician during rounding in room 224 Patient is pending CABG today in the afternoon. Continue NPO. Patient underwent a cardiac catheterization on 08/24/[address] Mushtaq Hernandez demonstrating severe multivessel coronary artery disease including a 30% left main, 99% proximal to mid LAD stenosis, 80% mid LAD stenosis, 70% stenosis in diagonal 2, 50% proximal left circumflex and 70% mid left circumflex stenosis and 80% mid RCA stenosis and 70% distal RCA stenosis. Today CABG will be performed and then patient will be transferred to ICU for closer observation after surgery. We will continue to monitor patient in the meantime. A.m. labs ] REVIEW OF SYSTEMS CONSTITUTIONAL: Denies fevers, chills, or night sweats. No unintentional weight loss reported. NEUROLOGICAL: Denies headache, amaurosis fugax, motor weakness, sensory deficit, vertigo/spinning sensation, gait abnormalities, or tremors. ENT: No hearing loss, otalgia, otorrhea, rhinitis, rhinorrhea, hoarseness, or sore throat. CARDIOVASCULAR: chest pain with syncope on 08/23/2025 PULMONARY: Denies any shortness of breath, cough, phlegm/sputum, hemoptysis, pleuritic chest pain. SLEEP: Denies morning headaches, daytime somnolence or napping. Denies difficulty falling asleep, staying asleep, waking from sleep. Denies knowledge of snoring. GASTROINTESTINAL: Denies any type of dysphagia to either liquids or solids. Denies nausea, vomiting, pyrosis, early satiety, abdominal pain, diarrhea, constipation, or changes in stool consistency or caliber. Denies coffee-ground emesis, hematemesis, hematochezia, or melanotic stools. GENITOURINARY: Denies frequency, urgency, nocturia, hematuria or incontinence (Storage/Irritative symptoms.) Low urinary stream, straining to void, urinary intermittency or hesitancy, splitting of the voiding stream, terminal dribbling. ENDOCRINOLOGIC: Denies polyuria, polydipsia, polyphagia or heat/cold intolerances. HEMATOLOGIC: Denies thrombophilia/previous clots, or coagulopathy/bleeding disorders. ONCOLOGIC: Denies personal history of malignancy. DERMATOLOGIC: Denies rashes or pruritus. PSYCHIATRIC: Denies any suicidal or homicidal ideation. Denies hallucinations. PHYSICAL EXAM GENERAL APPEARANCE: The patient is awake, alert, and oriented, in no acute cardiopulmonary distress. NEUROLOGICAL: Cranial nerves II-XII grossly intact. Motor is 5/5 in bilateral upper and lower extremities proximal to distal. No sensory deficits. HEENT: Face is symmetric. Pupils are equal and reactive. Extraocular movements are intact. NECK: Supple. No JVD. No thyromegaly. No submental, submandibular, pre- /postauricular, occipital or supraclavicular lymphadenopathy. CHEST: Normal chest expansion. No Telemetry. LUNGS: Absence of any rales, rhonchi or any wheezing. CARDIOVASCULAR: Regular. S1 and S2 normal. No appreciable rubs, murmurs or gallops. ABDOMEN: Soft, nontender, and nondistended. There is no rebound, voluntary guarding, or rigidity. : Deferred. No Guerra. EXTREMITIES: Non-edematous and not cyanotic. No clubbing. Good capillary refill. SKIN: No skin breakdown. Vital Signs (last 8hr) Date Time Temp Pulse Resp B/P (MAP) Pulse Ox O2 Delivery O2 Flow Rate FiO2 08/25/25 10:55 97.7 63 20 131/62 97 Room Air 21 08/25/25 08:03 97.9 67 18 128/84 97 08/25/25 08:00 99 Room Air* 0 21 LABS: Laboratory: Test 08/25/25 15:10 08/25/25 14:10 08/25/25 03:08 08/24/25 13:04 Range/Units Blood Gas Specimen Type Arterial Arterial Blood pH 7.416 7.350-7.450 Arterial Blood Partial Pressure CO2 37 35-48 mmHg Arterial Blood Partial Pressure O2 309.0 *H 83.0-108.0 mmHg Arterial Blood HCO3 23.3 21.0-28.0 mmol/L Arterial Blood Oxygen Saturation 99.2 H 94.0-98.0 % Arterial Blood Base Excess -1.0 -2.0-3.0 mmol/L Hemoglobin (Blood Gas) 10.4 L 13.5-17.5 g/dL Sodium (Blood Gas) 135 L 136-145 MMOL/L Bedside Potassium (Blood Gas) 3.6 3.4-4.5 MMOL/L Bedside Chloride (Blood Gas) 103 98-107 MMOL/L Bedside Glucose (Blood Gas) 131 H 65-95 MG/DL Bedside Ionized Calcium (Blood Gas) 1.24 1.15-1.33 MMOL/L Bedside Lactic Acid (Blood Gas) 2.10 H 0.36-0.75 MMOL/L Blood Gas Temperature 37.0 35.5-37.0 CELSIUS FiO2 100.0 % Blood Gas Specimen Comment 7 Venous Blood pH 7.358 7.320-7.430 Venous Blood pCO2 at Patient Temp 43 38-54 Venous Blood pO2 at Patient Temp 37.7 23.0-48.0 mmHg Venous Blood HCO3 23.9 22.0-29.0 Venous Blood Base Excess -1.7 -2.0-3.0 Venous Blood Total Hemoglobin 12.5 L 13.5-17.5 White Blood Count 8.1 4.8-10.8 K/uL Red Blood Count 4.50 4.50-6.20 MIL/uL Hemoglobin 14.2 14.0-18.0 g/dL Hematocrit 42.0 42-54 % Mean Corpuscular Volume 93.3 79-99 fL Mean Corpuscular Hemoglobin 31.6 27.0-33.0 pg Mean Corpuscular Hemoglobin Concent 33.8 32.0-36.0 g/dL Red Cell Distribution Width 13.4 11.0-15.5 % Platelet Count 279 130-400 K/uL Mean Platelet Volume 10.2 7.5-10.5 fL Immature Granulocyte % (Auto) 0.2 0-1 % Neutrophils (%) (Auto) 40.0 40.0-77.0 % Lymphocytes (%) (Auto) 51.2 H 21.0-51.0 % Monocytes (%) (Auto) 7.1 3.0-13.0 % Eosinophils (%) (Auto) 1.0 0.0-8.0 % Basophils (%) (Auto) 0.5 0.0-5.0 % Neutrophils # (Auto) 3.3 1.8-7.7 K/uL Lymphocytes # (Auto) 4.2 1.0-4.8 K/uL Monocytes # (Auto) 0.6 0.1-1.0 K/uL Eosinophils # (Auto) 0.08 0.00-0.70 K/uL Basophils # (Auto) 0.04 0.00-0.20 K/uL Absolute Immature Granulocyte (auto 0.02 0-1 K/uL Nucleated Red Blood Cells 0.0 0.0-0.19 % Prothrombin Time 10.5 9.6-11.6 SEC Prothromb Time International Ratio 0.99 0.85-1.15 Activated Partial Thromboplast Time 92.8 *H 26.3-35.5 SEC Sodium Level 134 L 136-145 mmol/L Potassium Level 4.0 3.5-5.1 mmol/L Chloride Level 100 L 101-111 mmol/L Carbon Dioxide Level 29 21-32 mmol/L Blood Urea Nitrogen 13 7-18 mg/dL Creatinine 1.0 0.5-1.3 mg/dL Glomerular Filtration Rate Calc 92 >90 mL/min Random Glucose 97 70-105 mg/dL Total Calcium 8.1 L 8.5-10.1 mg/dL Magnesium Level 2.20 1.80-2.40 mg/dL Total Bilirubin 0.5 0.2-1.0 mg/dL Aspartate Amino Transf (AST/SGOT) 29 10-37 U/L Alanine Aminotransferase (ALT/SGPT) 52 12-78 U/L Alkaline Phosphatase 65 50-136 U/L Total Protein 7.3 6.0-8.3 g/dL Albumin 3.4 L 3.5-5.0 g/dL Triglycerides Level 170 30-200 mg/dL Cholesterol Level 207 H <200 mg/dL LDL Cholesterol 137 H 0-99 mg/dL HDL Cholesterol 35 29-71 mg/dL Hemoglobin A1c 6.1 H 4.0-6.0 % Estimated Average Glucose (eAG) 128 H 70-126 mg/dL Troponin I High Sensitivity 251 *H 4-75 ng/L Thyroid Stimulating Hormone (TSH) 9.27 H 0.36-3.74 uIU/mL Current Medications Medications (Trade) Dose Ordered Sig/Allison Route PRN Reason Start Time Stop Time Status Last Admin Dose Admin Acetaminophen (TYLenol 325MG TAB) 650 mg Q4H PRN PO Temp >38.3C(AFTER EXTUBATION) 08/25/25 13:30 09/24/25 13:29 Acetaminophen (TYLenol 325MG TAB) 650 mg Q6H PRN PO MILD PAIN (1-3) 08/24/25 13:30 08/25/25 13:24 DC Acetaminophen (TYLenol 325MG TAB) 650 mg Q6H PRN PO MILD PAIN (1-3) 08/25/25 13:30 09/24/25 13:29 Acetaminophen (TYLenol 650MG SUPPOSITORY) 650 mg Q4H PRN RC Temp >38.3C WHILE INTUBATED 08/25/25 13:30 09/24/25 13:29 Acetaminophen (acetaMINOPHEN 1,000MG/100ML) 1,000 mg Q6H6 IV 08/25/25 18:00 08/26/25 17:59 Albumin Human 250 ml @ 0 mls/hr AD PRN IV IF HEMODYNAMICALLY UNSTABLE 08/25/25 13:30 Aminocaproic Acid 91638 mg/Sodium Chloride 310 ml @ 25 mls/hr AD IV 08/25/25 13:30 08/25/25 13:19 DC Aminocaproic Acid 82719 mg/Sodium Chloride 480 ml @ 0 mls/hr AD PRN IV BLEEDING CONTROL 08/25/25 10:00 09/24/25 09:59 Aspirin (Aspirin 81mg Chew Tab) 81 mg DAILY PO 08/25/25 09:00 09/24/25 08:59 Atorvastatin Calcium (LIPItor 40MG) 40 mg HS PO 08/24/25 21:00 08/24/25 13:42 DC Atorvastatin Calcium (LIPItor 40MG) 80 mg HS PO 08/24/25 21:00 09/23/25 20:59 08/24/25 21:22 80 MG Calcium Gluconate 1 gm/Sodium Chloride 60 ml @ 200 mls/hr AD PRN IV HYPOCALCEMIA 08/25/25 13:30 09/24/25 13:29 Cefazolin Sodium (ANCEF 1 gm vial) 2 gm ONCALL IVP 08/25/25 07:00 08/27/25 06:59 08/25/25 12:31 2 GM Cefazolin Sodium (Ancef) 2 gm Q8H IVPB 08/25/25 18:30 08/26/25 10:31 Dexmedetomidine/ Sodium Chloride (PRECEdex 400MCG/ 100ML-NS) 400 mcg PROTOCOL IV 08/25/25 13:30 08/26/25 13:29 Dextrose (D50w) 50 ml AD PRN IV HYPOGLYCEMIA PROTOCOL 08/25/25 13:30 09/24/25 13:29 Docusate Sodium (COLace 100MG CAP) 100 mg BID PO 08/25/25 21:00 09/24/25 20:59 Epinephrine HCl 10 mg/Sodium Chloride 250 ml @ 0 mls/hr AD PRN IV TITRATE 08/25/25 10:00 09/24/25 09:59 Epinephrine HCl 10 mg/Sodium Chloride 250 ml @ 0 mls/hr AD PRN IV POST-OP CARDIOVASCULAR ORDERS 08/25/25 13:30 08/25/25 13:18 DC EZETIMIBE (Zetia) 10 mg DAILY PO 08/25/25 09:00 09/24/25 08:59 Famotidine (Pepcid 20mg Vial) 20 mg BID IV 08/25/25 21:00 09/24/25 20:59 Famotidine (Pepcid 20mg Tab) 20 mg BID PO 08/24/25 21:00 08/24/25 13:16 DC Famotidine (Pepcid 20mg Tab) 20 mg BID PO 08/24/25 21:00 08/25/25 13:09 DC 08/24/25 21:22 20 MG Furosemide (LASix 20MG TAB) 20 mg Q12H PO 08/27/25 09:00 09/26/25 08:59 Furosemide (LASix 20MG VIAL) 20 mg Q12H IV 08/26/25 09:00 08/27/25 08:59 Glucagon (Glucagon 1mg Kit) 1 mg AD PRN IM HYPOGLYCEMIA PROTOCOL 08/25/25 13:30 09/24/25 13:29 Heparin Sodium (Porcine) (HEParin 5,000 UNIT VIAL) *calculation based on ACTUAL B... AD PRN IV HEPARIN PROTOCOL 08/24/25 14:30 08/25/25 13:09 DC Heparin Sodium/ Dextrose 250 ml @ 0 mls/hr Q6H IV 08/24/25 14:30 08/25/25 13:09 DC 08/25/25 00:57 16.9 MLS/HR Insulin Human Regular 100 unit/ Sodium Chloride 100 ml @ 0 mls/hr AD IV 08/25/25 13:30 08/27/25 13:29 Lactulose (Constulose 20gm/ 30ml Udcup) 20 gm BID PRN PO CONSTIPATION 08/25/25 13:30 09/24/25 13:29 Lorazepam (AtiVAN) 0.5 mg BID PRN PO ANXIETY/AGITATION 08/24/25 16:30 08/25/25 13:09 DC 08/24/25 17:09 0.5 MG Magnesium Hydroxide (Milk Of Magnesium 30ml) 30 ml DAILY PRN PO CONSTIPATION 08/25/25 13:30 09/24/25 13:29 Magnesium Sulfate 50 ml @ 12.5 mls/hr AD PRN IV MAG LEVEL LESS THAN 2.0 08/25/25 13:30 09/24/25 13:29 Magnesium Sulfate 50 ml @ 0 mls/hr PROTOCOL IV 08/24/25 16:00 08/25/25 13:09 DC 08/24/25 16:53 100 MLS/HR Morphine Sulfate (morPHINE 4MG SYG) 0.5 mg Q2H PRN IV MODERATE PAIN (4-6) 08/25/25 13:30 09/01/25 13:29 Morphine Sulfate (morPHINE 4MG SYG) 1 mg Q2H PRN IV SEVERE PAIN (7-10) 08/25/25 13:30 08/26/25 13:29 Nitroglycerin (Nitro-Bid) 0.5 gm Q8H TD 08/24/25 13:30 08/24/25 15:35 DC Nitroglycerin (Nitroglycerin 1gm Oint) 0.5 inch Q8H TD 08/24/25 16:00 08/25/25 13:09 DC 08/25/25 09:55 0.5 INCH Nitroglycerin (Nitrostat) 0.4 mg AD PRN SL CHEST PAIN 08/24/25 13:30 08/25/25 13:09 DC Nitroglycerin/ Dextrose 0 ml @ 0 mls/hr AD IV 08/25/25 13:30 08/28/25 13:29 Norepinephrine 250 ml @ 0 mls/hr AD PRN IV TITRATE 08/25/25 11:00 09/24/25 09:59 Norepinephrine Bitartrate 250 ml @ 0 mls/hr AD PRN IV TITRATE 08/25/25 10:00 08/25/25 10:49 DC Norepinephrine Bitartrate 8 mg/ Dextrose 250 ml @ 0 mls/hr AD PRN IV POST-OP CARDIOVASCULAR ORDERS 08/25/25 13:30 08/25/25 13:17 DC Ondansetron HCl (zoFRAN 4MG INJ) 4 mg Q6H PRN IV NAUSEA/VOMITING 08/25/25 13:30 09/24/25 13:29 Ondansetron HCl (zoFRAN 4MG INJ) 4 mg Q6H PRN IVP NAUSEA/VOMITING 08/24/25 13:30 08/25/25 13:09 DC Potassium Phosphate 250 ml @ 42 mls/hr AD PRN IV LOW PHOS LEVEL 08/25/25 13:30 09/24/25 13:29 Potassium Chloride 100 ml @ 100 mls/hr AD PRN IV POTASSIUM PROTOCOL 08/24/25 16:00 08/25/25 13:09 DC Potassium Chloride 100 ml @ 100 mls/hr AD PRN IV HYPOKALEMIA 08/25/25 13:30 09/24/25 13:29 Potassium Chloride (K-Dur/Klor-Con 20meq) 20 meq AD PRN PO POTASSIUM PROTOCOL 08/24/25 16:00 08/25/25 13:09 DC Potassium Chloride (KCl 10% Elixir 20meq/15ml) 20 meq AD PRN PO POTASSIUM PROTOCOL 08/24/25 16:00 08/25/25 13:09 DC Propofol 100 ml @ 0 mls/hr AD PRN IV SEDATION 08/25/25 13:30 08/29/25 13:29 Sodium Bicarbonate (Sodium Bicarb 50meq 50ml Vial) 50 meq AD PRN IV OTHER[SEE DOSING INSTRUCTIONS] 08/25/25 13:30 08/28/25 13:29 Sodium Chloride 500 ml @ 0 mls/hr AD IV 08/25/25 13:30 09/24/25 13:29 Sodium Chloride 1,000 ml @ 10 mls/hr ONCE IV 08/25/25 13:30 08/26/25 13:29 Sodium Chloride (NS Flush 10ml) 10 ml Q8H PRN IVP IV LINE FLUSH 08/25/25 13:30 09/24/25 13:29 Tramadol HCl (UltRAM) 25 mg Q6H PRN PO MODERATE PAIN (4-6) 08/25/25 13:30 08/30/25 13:29 Tramadol HCl (UltRAM) 50 mg Q6H PRN PO SEVERE PAIN (7-10) 08/25/25 13:30 08/30/25 13:29 DIAGNOSTICS / RADIOLOGY: [ ] ASSESSMENT: NSTEMI, POA Syncope on 08/23/2025, POA Status post cardiac catheterization with findings of severe multivessel coronary artery disease with 99% proximal LAD stenosis, by Dr. Mushtaq Julian, 08/24/2025 History of uncontrolled hyperlipidemia, POA Hypertension, POA Prediabetes, POA Nonobstructive carotid artery disease, POA Rule out obstructive sleep apnea, POA Obesity, POA Prior history of significant smoking, 35 pack year, quit smoking last year, POA PLAN: Patient is pending CABG today in the afternoon. Continue NPO. Patient underwent a cardiac catheterization on 08/24/[address] Mushtaq Hernandez demonstrating severe multivessel coronary artery disease including a 30% left main, 99% proximal to mid LAD stenosis, 80% mid LAD stenosis, 70% stenosis in diagonal 2, 50% proximal left circumflex and 70% mid left circumflex stenosis and 80% mid RCA stenosis and 70% distal RCA stenosis. Today CABG will be perf ormed and then patient will be transferred to ICU for closer observation after surgery. We will continue to monitor patient in the meantime. A.m. labs Patient will continue with admission in cardiac telemetry floor under telemetry monitoring We will follow up recommendations by cardiovascular surgery, appreciate recommendations by Dr. Reese with Cardiology Continue with aspirin 81 mg daily, continue with IV anticoagulation with heparin drip Patient will be started on high-dose Lipitor 80 mg daily, Zetia 10 mg daily Patient has resting bradycardia, we will hold beta blockers currently We will follow up 2D echocardiogram, we will check lipid panel, A1c, TSH Findings of carotid ultrasound showed nonobstructive plaque in the left internal carotid artery with 20-30% stenosis, right ICA with 30-40% stenosis and no flow in the right vertebral artery which could indicate occlusion, recommendations by Cardiology to continue with antiplatelet therapy All labs will be repeated in the morning We will maintain potassium greater than four and magnesium greater than two Patient will benefit from sleep study as outpatient to assess for sleep apnea We will keep patient on GI prophylaxis with Pepcid ATTESTATION BY PHYSICIAN I have seen and examined the patient. I reviewed the documentation, medical decision making, and treatment plan as noted by the mid-level provider above. I agree with the findings and plan of care. DHARA MOSS MD, [facility] Aug 25, 2025 15:36
--- NOTE | 2025-08-25 16:00 | NUR ---
pt arrived to unit at this time, pt with left irregular shape pupil, right pinpoint pupil, et tube :7.5 lip at25 to right on ventilator, og tube in place, right cordis in place/swan, left radial line ,18 g to left forearm, 16 fr roe present , yellow urine, chest tubes x2 to 1 chest tube chamber, serosanguineous fluid noted. on amicar, levophed, epinephrine and propofol drip. vitals as charted.
[2025-08-25 16:10] LABS: ABG BASE EXCESS 0.7 mmol/L (-2.0-3.0); ABG HCO3 24.9 mmol/L (21.0-28.0); ABG OXYGEN SATURATION 97.9 % (94.0-98.0); ABG PCO2 38 mmHg (35-48); ABG PH 7.430 (7.350-7.450); CARBON MONOXIDE 0.4 % (0.5-1.5); PO2, ARTERIAL BG 126.2 mmHg (83.0-108.0); TEMPERATURE, CELSIUS BG 37.0 CELSIUS (35.5-37.0); VENT MODE, BG SIMV PS 10 (ROOM AIR)
[2025-08-25 16:22] LABS: NUCLEATED RED BLOOD CELLS 0.0 % (0.0-0.19); PLATELET COUNT (AUTO) 241.0 K/uL (130-400); RED BLOOD CELL COUNT(AUTO) 3.48 MIL/uL (4.50-6.20); RED CELL DISTRIBUTION WIDTH 13.2 % (11.0-15.5); WHITE BLOOD COUNT (AUTO) 13.5 K/uL (4.8-10.8)
[2025-08-25 16:37] LABS: INR 1.22 (0.85-1.15)
[2025-08-25 16:38] LABS: CREATININE 1.1 mg/dL (0.5-1.3); GLOMERULAR FILTR. RATE CALC 82.0 mL/min (>90); GLUCOSE,RANDOM 129.0 mg/dL (70-105); PHOSPHORUS 4.1 mg/dL (2.5-4.9); SODIUM SERUM 141.0 mmol/L (136-145); UREA NITROGEN, BLOOD 13.0 mg/dL (7-18)
--- NOTE | 2025-08-25 16:57 | OP ---
DATE OF PROCEDURE: 08/25/2025 PREOPERATIVE DIAGNOSIS: Multivessel coronary artery disease. POSTOPERATIVE DIAGNOSIS: Multivessel coronary artery disease. PROCEDURES PERFORMED: 1. Pump-assisted coronary bypass grafting x 4 (left internal mammary artery to the LAD, reverse saphenous vein graft from the aorta to the first diagonal coronary artery, reverse saphenous vein graft from the aorta to the second obtuse marginal coronary artery, reverse saphenous vein graft from the aorta to the posterior descending artery). 2. Left atrial ligation with a 35-mm AtriCure clip. The patient's CHADS score was greater than 2 and the clip was justified to reduce the need for postoperative anticoagulation. 3. Rigid external fixation with a UDAY sternal plating system. OPERATING SURGEON: Griselda Phipps MD BEHAVIOR SUPPORT SPECIALIST: Daphne Deleon. TYPE OF ANESTHESIA: General endotracheal anesthesia. ANESTHESIOLOGIST: BRIEF HISTORY: The patient is a 49-year-old male who presented to [facility] with [id number] [place]. The patient underwent an echocardiogram which revealed an ejection fraction of 35% to 40%. He had a heart catheterization which revealed three system coronary artery disease. He was transferred to [facility] for possible coronary bypass grafting. FINDINGS: The patient's left internal mammary artery was a somewhat small vessel. The patient had 4 bypasses performed with a heart beating but on cardiopulmonary bypass. The patient's left ventricular function appeared markedly improved after the revascularization with ejection fraction of at least 50%. DESCRIPTION OF PROCEDURE: The patient was brought to the operating room and placed on the operating room table in the supine position. He was given general endotracheal anesthesia. After placing lines and catheters, his chest, abdomen, and legs were prepped and draped in the usual sterile fashion. Both greater saphenous veins in the thighs were harvested for adequate vein for the bypass. Simultaneously, a median sternotomy was performed and the left internal mammary artery was taken down. The patient was given initially 5000 units of IV heparin. The left internal mammary artery was clamped with a bulldog proximally and divided distally. The pericardium was opened in the midline and tacked up to the retractor edges with silk sutures. Double pledgeted purse-strings of 2-0 Ethibond were then placed in the ascending aorta for the aortic cannula. A 4-0 Prolene purse-string was placed in the right atrium for the venous cannula. The patient was then given a total of 350 units per kilo of IV heparin. The aorta was cannulated with a metal-tipped arterial cannula which was de-aired and connected to the arterial limb of the cardiopulmonary bypass circuit. Next, a single two-stage venous cannula was placed in the IVC via the right atrial appendage. This was connected to the venous limb of the cardiopulmonary bypass circuit. The patient was placed on full cardiopulmonary bypass. Next, an Acrobat epicardial retractor was placed on the distal LAD, which was then opened longitudinally. A 5-0 Prolene purse-string was placed proximal to the target site. The distal end of the left internal mammary artery was anastomosed to the side of the LAD over a 1-mm shunt using a running 7-0 Prolene suture and the pedicle was tacked to the epicardium with two 6-0 Prolene sutures. The bulldog clamp was released and the LAD was reperfused at the end of the procedure. The next target was the second obtuse marginal coronary artery. This was through the distal end of a reverse saphenous vein graft. An end-to-side anastomosis was performed over a 1-mm shunt using a running 7-0 Prolene suture and the vein graft was draped under the left internal mammary artery and cut to appropriate length to reach the aorta. The next target was the first diagonal coronary artery. This was seen at the distal end of the second segment of reverse saphenous vein graft. An end-to-side anastomosis was performed over a 1-mm shunt using a running 7-0 Prolene suture and the vein graft was draped under the left internal mammary artery and cut to appropriate length to reach the aorta. The final target was the posterior descending artery. This was achieved through the end of the third segment of reverse saphenous vein graft. An end-to-side anastomosis was performed over a 1 mm shunt using a running 7-0 Prolene suture and the vein graft was draped along the right side of the heart and cut to appropriate length to reach the aorta. A partial occlusion clamp was then placed on the ascending aorta and three 4.0 mm aortotomy holes were made and the proximal ends of the vein grafts were anastomosed to the side of the aorta using running 6-0 Prolene sutures. The vein grafts were de-aired. Partial occlusion clamps were removed and all three systems were revascularized. The patient was then weaned from cardiopulmonary bypass, given protamine, and decannulated. The mediastinum and left chest were drained with a 24-Slovenian Miguelangel drain, secured to the skin with silk sutures. The left atrial appendage was clipped with a 35-mm AtriCure clip after affirming on LETI that there was no clot in the left atrial appendage. The pericardium was then loosely approximated with the heart and grafts with several separate Ethibond sutures. The sternum was reapproximated with a combination of stainless steel wires and UDAY sternal plating system. The presternal fascia and subcutaneous tissue were closed with a running layers of Vicryl suture. The skin was closed using a running intracuticular Monocryl stitch. The wounds were cleaned and dried, covered with a bandage, and the patient was undraped and taken intubated to the ICU in critical but stable condition. TID: [id number] RECEIPT: [id number] cc: GRISELDA PHIPPS MD(User), , Daphne Deleon
[2025-08-25 17:00] LABS: ABG BASE EXCESS 1.7 mmol/L (-2.0-3.0); ABG HCO3 25.4 mmol/L (21.0-28.0); ABG OXYGEN SATURATION 97.1 % (94.0-98.0); ABG PCO2 37 mmHg (35-48); ABG PH 7.456 (7.350-7.450); CARBON MONOXIDE 0.8 % (0.5-1.5); PO2, ARTERIAL BG 95.3 mmHg (83.0-108.0); TEMPERATURE, CELSIUS BG 37.0 CELSIUS (35.5-37.0); VENT MODE, BG SIMV PS 10 (ROOM AIR)
--- NOTE | 2025-08-25 17:11 | EKG ---
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
[2025-08-25] MEDS: ALBUMIN (HUMAN) 5% 250 ML IV PRN (17:14)
[2025-08-25] MEDS: 0.9%NACL 1000ML 1,000 ML IV SCH (17:16)
[2025-08-25] MEDS: INSULIN REGULAR, HUMAN 3ML 100 UNIT in 0.9%NACL 100ML 99 ML IV SCH (17:21)
[2025-08-25] MEDS: ASPIRIN 81MG CHEW TAB NG ONE ×2 (17:35→21:10)
--- NOTE | 2025-08-25 17:50 | NUR ---
DR. BANGURA AT BEDSIDE,MADE AWARE OF ALL LABS, MEDIASTINAL DRESSING REDRESSED DUE TO OVER SATURATING . NO NEW ORDERS GIVEN, PT TO CONTINUED MONITOR DRESSING SITE.
--- NOTE | 2025-08-25 18:06 | HMCIMG ---
EXAM: CR Chest, 2 View. CLINICAL HISTORY: s/p CABG COMPARISON: None provided. FINDINGS: Endotracheal tube, enteric tube, and [place]-Keith catheter are in satisfactory positions. Mild bibasilar airspace disease may reflect atelectasis and/or infectious/inflammatory process. Suspected small left pleural effusion. No pneumothorax. Heart size is stable. Mild central pulmonary vascular congestion. IMPRESSION: 1. Mild bibasilar airspace disease, possibly atelectasis or infectious/inflammatory process. 2. Suspected small left pleural effusion. 3. Mild central pulmonary vascular congestion. 4. Satisfactory positioning of endotracheal tube, enteric tube, and [place]-Keith catheter. /[place]
[2025-08-25 18:29] LABS: ABG BASE EXCESS -0.4 mmol/L (-2.0-3.0); ABG HCO3 23.5 mmol/L (21.0-28.0); ABG OXYGEN SATURATION 99.2 % (94.0-98.0); ABG PCO2 36 mmHg (35-48); ABG PH 7.432 (7.350-7.450); CARBON MONOXIDE 0.3 % (0.5-1.5); DEVICE COMMENT A LINE; PO2, ARTERIAL BG 378.4 mmHg (83.0-108.0); TEMPERATURE, CELSIUS BG 37.0 CELSIUS (35.5-37.0); VENT MODE, BG SIMV PS10 (ROOM AIR)
[2025-08-25 19:37] LABS: ABG BASE EXCESS 0.9 mmol/L (-2.0-3.0); ABG HCO3 26.4 mmol/L (21.0-28.0); ABG OXYGEN SATURATION 96.0 % (94.0-98.0); ABG PCO2 46 mmHg (35-48); ABG PH 7.379 (7.350-7.450); CARBON MONOXIDE 0.5 % (0.5-1.5); DEVICE COMMENT A LINE; PO2, ARTERIAL BG 86.5 mmHg (83.0-108.0); TEMPERATURE, CELSIUS BG 37.0 CELSIUS (35.5-37.0); VENT MODE, BG SIMV PS10 (ROOM AIR)
--- NOTE | 2025-08-25 19:58 | NUR ---
STATUS DR. PHIPPS CALLED UPDATED ON PT STATUS ST SEGMENT CHANGES ON BEDSIDE MONITOR 12 LEAD DONE AND SENT TO HIM. ALSO MADE AWARE OF INCREASED OOZING FROM CHEST INCISION WHICH HAS REQUIRED REINFORCEMENT X 2 TIMES. NEW ORDERS RECEIVED AND WILL BE CARRIED OUT.
[2025-08-25] MEDS: ALBUMIN (HUMAN) 5% 250 ML IV ONE ×2 (20:21→20:22)
[2025-08-25 21:04] LABS: ABG BASE EXCESS -0.1 mmol/L (-2.0-3.0); ABG HCO3 24.8 mmol/L (21.0-28.0); ABG OXYGEN SATURATION 96.9 % (94.0-98.0); ABG PCO2 42 mmHg (35-48); ABG PH 7.394 (7.350-7.450); CARBON MONOXIDE 0.4 % (0.5-1.5); DEVICE COMMENT A LINE; PO2, ARTERIAL BG 102.3 mmHg (83.0-108.0); TEMPERATURE, CELSIUS BG 37.0 CELSIUS (35.5-37.0); VENT MODE, BG SIMV PS 10 (ROOM AIR)
[2025-08-25] MEDS: CALCIUM GLUC 1GM 1 GM in 0.9%NACL 50ML 50 ML IV PRN (21:05)
[2025-08-25] MEDS: FAMOTIDINE 20MG VIAL IV SCH (21:10)
[2025-08-25] MEDS: 0.9% NACL 500ML IV.SOLN 500 ML IV SCH (22:11)
[2025-08-25 22:12] LABS: ABG BASE EXCESS 0.0 mmol/L (-2.0-3.0); ABG HCO3 24.9 mmol/L (21.0-28.0); ABG OXYGEN SATURATION 97.0 % (94.0-98.0); ABG PCO2 42 mmHg (35-48); ABG PH 7.394 (7.350-7.450); CARBON MONOXIDE 0.2 % (0.5-1.5); DEVICE COMMENT ALINE; PO2, ARTERIAL BG 104.8 mmHg (83.0-108.0); TEMPERATURE, CELSIUS BG 37.0 CELSIUS (35.5-37.0); VENT MODE, BG SIMV PS10 (ROOM AIR)
[2025-08-25 23:11] LABS: ABG BASE EXCESS 0.5 mmol/L (-2.0-3.0); ABG HCO3 24.8 mmol/L (21.0-28.0); ABG OXYGEN SATURATION 97.3 % (94.0-98.0); ABG PCO2 39 mmHg (35-48); ABG PH 7.424 (7.350-7.450); CARBON MONOXIDE 0.1 % (0.5-1.5); DEVICE COMMENT A LINE; PO2, ARTERIAL BG 106.5 mmHg (83.0-108.0); TEMPERATURE, CELSIUS BG 37.0 CELSIUS (35.5-37.0); VENT MODE, BG SIMV PS10 (ROOM AIR)
--- NOTE | 2025-08-25 23:15 | NUR ---
EXTUBATION PT TOLERATED WEANING WELL ABG WITH PARAMETERS. 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 HE WAS ABLE TO ACHIEVE -49 CMH2O ON NIF. PT EXTUBATED AND PLACED ON 40% CAFM HE WAS ENCOURAGED TO TAKE SLOW DEEP BREATHS. WILL CONTINUE TO MONITOR.
--- NOTE | 2025-08-25 23:50 | HMCSR ---
APPROVED REPORT EXAM: Two-dimensional and M-mode echocardiogram with Doppler and color Doppler. INDICATION ICD: preop CABG Pre-Op 2D Dimensions RVDd 4.0 cm LVEF(%) 52.9 (>50%) LVED Vol(simp.) 117.3 mL IVSd 0.8 (0.7-1.1cm) FS(%) 27 % LVES Vol(simp.) 57.6 mL LVDd 5.3 (3.8-5.6cm) LA (2D) 4.0 (1.6-4.0cm) LVEF(%, simp.) 51 % PWd 1.1 (0.7-1.1cm) Ao Root(2D) 2.7 (2.0-3.7cm) LA ESV INDEX (BP) 19.20 mL/m2 LVDs 3.9 (2.5-4.0cm) LVOT diam 2.3 (1.8-2.4cm) IVC diam 1.7 cm Deformation Strain Apical 4 -13.9 % Apical 2 -14.4 % Apical 3 -14.0 % Global Strain -14.1 % M-Mode Dimensions EPSS 1.3 cm LA (MM) 3.9 (1.6-4.0cm) Ao Root(MM) 2.9 (2.0-3.7cm) Aortic Valve AoV Vmax 1.2 m/s Ao Peak GR 5.9 mmHg LVOT Vmax 0.9 m/s AoV VTI 0.2 m Ao Mean GR 3.0 mmHg LVOT VTI 0.17 m HI (VMAX) 3.11 cm2 HI (VTI) 2.9 cm2 Mitral Valve MV E Vmax 58.5 cm/s DECEL Time 183 ms MV A Vmax 43.2 cm/s P 1/2 T 53 ms E/A ratio 1.4 MVA (PHT) 4.2 cm2 TDI E/E' Medial 7.3 E/E' Lateral 5.4 Medial E' Peak V 8.01 cm/s Lateral E' Peak V 10.80 cm/s Pulmonary Valve PV Vmax 1.1 m/s PV VTI 0.28 m PV Mean GR 2.9 mmHg PV Peak GR 5.0 mmHg Left Ventricle The left ventricle is normal size. No regional wall motion abnormalities noted. There is normal left ventricular wall thickness. Left ventricular systolic function is low-normal, estimated LVEF is 50-55%. The left ventricular diastolic function is normal. Right Ventricle The right ventricle is normal size. The right ventricular systolic function is normal. Atria The left atrium size is normal. The right atrium size is normal. Aortic Valve Aortic valve is trileaflet. The leaflets are mildly thickened and calcified. Trace aortic regurgitation. There is no aortic valvular stenosis. Mitral Valve The mitral valve is normal in structure. The leaflets are mildly thickened and calcified. Trace mitral regurgitation. There is no mitral valve stenosis. Tricuspid Valve The tricuspid valve is normal in structure. Trace tricuspid regurgitation. RVSP is normal. Pulmonic Valve Pulmonic valve is not well visualized. Great Vessels The aortic root is normal in size. The IVC is normal in size and collapses >50% with inspiration. Pericardium There is no pericardial effusion. Conclusion The cardiac chambers are normal in size. There is normal left ventricular wall thickness. No regional wall motion abnormalities noted. Left ventricular systolic function is low-normal, estimated LVEF is 50-55%. The left ventricular diastolic function is normal. Trace aortic regurgitation. Trace mitral regurgitation. Trace tricuspid regurgitation. PASP is normal. There is no pericardial effusion.
[2025-08-26] VITALS (63 sets, daily range): BP systolic 84–162; BP diastolic 50–96; PULSE 77–105; RESP 5–26; TEMP 98.3–99.8; O2SAT 96–99
[2025-08-26 00:19] LABS: ABG BASE EXCESS 0.5 mmol/L (-2.0-3.0); ABG HCO3 25.9 mmol/L (21.0-28.0); ABG OXYGEN SATURATION 97.1 % (94.0-98.0); ABG PCO2 45 mmHg (35-48); ABG PH 7.377 (7.350-7.450); CARBON MONOXIDE 0.3 % (0.5-1.5); DEVICE COMMENT ALINE; PO2, ARTERIAL BG 105.3 mmHg (83.0-108.0); TEMPERATURE, CELSIUS BG 37.0 CELSIUS (35.5-37.0)
[2025-08-26 04:10] LABS: ABG BASE EXCESS 3.2 mmol/L (-2.0-3.0); ABG HCO3 28.4 mmol/L (21.0-28.0); ABG OXYGEN SATURATION 97.1 % (94.0-98.0); ABG PCO2 46 mmHg (35-48); ABG PH 7.411 (7.350-7.450); CARBON MONOXIDE 0.3 % (0.5-1.5); PO2, ARTERIAL BG 102.1 mmHg (83.0-108.0); TEMPERATURE, CELSIUS BG 37.0 CELSIUS (35.5-37.0); VENT MODE, BG CAFM (ROOM AIR)
[2025-08-26 04:35] LABS: IMMATURE GRANULOCYTE ABSOLUTE 0.03 K/uL (0-1); NUCLEATED RED BLOOD CELLS 0.0 % (0.0-0.19); PLATELET COUNT (AUTO) 289 K/uL (130-400); RED BLOOD CELL COUNT(AUTO) 3.24 MIL/uL (4.50-6.20); RED CELL DISTRIBUTION WIDTH 13.5 % (11.0-15.5); WHITE BLOOD COUNT (AUTO) 7.7 K/uL (4.8-10.8)
[2025-08-26 04:43] LABS: ASPARTATE AMINOTRANSFERASE 66.0 U/L (10-37); CREATININE 1.4 mg/dL (0.5-1.3); GLOMERULAR FILTR. RATE CALC 61.0 mL/min (>90); GLUCOSE,RANDOM 124.0 mg/dL (70-105); PHOSPHORUS 5.5 mg/dL (2.5-4.9); SODIUM SERUM 141.0 mmol/L (136-145); TOTAL PROTEIN, SERUM 6.5 g/dL (6.0-8.3); UREA NITROGEN, BLOOD 16.0 mg/dL (7-18)
[2025-08-26 04:44] LABS: INR 1.05 (0.85-1.15)
[2025-08-26] MEDS: MAGNESIUM 2GM PREMIX 50ML 50 ML IV PRN (05:08)
--- NOTE | 2025-08-26 07:30 | NUR ---
DR. PHIPPS CAME AND HAS SEEN THE PATIENT WITH ORDERS GIVEN.
--- NOTE | 2025-08-26 09:11 | NUR ---
[facility] ICU Skin Assessment: Patient assessed by wound healing team. Patient with no wounds or skin breakdown noted. Assessment and recommendations provided to primary nurse. Education provided.
--- NOTE | 2025-08-26 09:36 | PN ---
[facility] CARDIOLOGY PROGRESS NOTE Date Patient Seen: Aug 26, 2025 Time of Visit: 09:26 Interval History: This is a 49-year-old Latin-Honduran male with a past medical history of hypertension, hyperlipidemia on no prior medical therapy, premature coronary art jorge disease with 2 brothers having heart disease in her 40s and prior heavy tobacco use reporting 35 years of tobacco use of 2 packs per day but quit 1 year ago, who initially presented to [facility] on 08/23/2025 due to a syncopal episode and associated chest pain. He ruled in for a small non ST segment elevation [place] with troponin levels of 0.044, 0.097 and 0.099 ([place] [facility] [place] He underwent a cardiac catheterization on 08/24/[address] Mushtaq Hernandez demonstrating severe multivessel coronary artery disease including a 30% left main, 99% proximal to mid LAD stenosis, 80% mid LAD stenosis, 70% stenosis in diagonal 2, 50% proximal left circumflex and 70% mid left circumflex stenosis and 80% mid RCA stenosis and 70% distal RCA stenosis. Today is postop day #1 Status post on pump coronary artery bypass graft x4 vessels (ARANA to the LAD (small ARANA), SVG to the diagonal 1, SVG to the OM2 and SVG to the PDA) and left atrial ligation with a 35 mm AtriCure clip on 08/25/[address] New Mondragon. He is currently off all vasopressor support. He is sitting up in the chair. Chest tube output was 345 mL. Telemetry has demonstrated a normal sinus rhythm without complicating arrhythmias thus far. Hemodynamically he is stable. He offers no significant complaints this morning. Physical Examination: GENERAL: No acute distress. HEAD: Normal with no signs of head trauma. EYES: PERRLA, EOMI, conjunctiva and sclera normal. NECK: Supple without JVD. There is no tenderness, lymphadenopathy, or masses. No thyromegaly. Normal carotid upstrokes without bruits. Right jugular central line in place LUNGS: Diminished breath sounds at the bases bilaterally HEART: Normal rate and rhythm. Normal S1 and S2 without murmurs, gallop or rub. Median sternotomy is with dressing and chest tubes are in place VASC: Peripheral pulses +2 bilaterally. EXT: No clubbing, cyanosis or edema. NEURO: Awake, alert, and oriented x3. No focal neurological deficits noted. Laboratory: Hematology Labs: Test 08/26/25 04:07 Range/Units White Blood Count 7.7 # 4.8-10.8 K/uL Red Blood Count 3.24 L 4.50-6.20 MIL/uL Hemoglobin 10.2 L 14.0-18.0 g/dL Hematocrit 30.6 L 42-54 % Mean Corpuscular Volume 94.4 79-99 fL Mean Corpuscular Hemoglobin 31.5 27.0-33.0 pg Mean Corpuscular Hemoglobin Concent 33.3 32.0-36.0 g/dL Red Cell Distribution Width 13.5 11.0-15.5 % Platelet Count 289 130-400 K/uL Mean Platelet Volume 10.1 7.5-10.5 fL Immature Granulocyte % (Auto) 0.4 0-1 % Neutrophils (%) (Auto) 71.6 40.0-77.0 % Lymphocytes (%) (Auto) 14.7 L 21.0-51.0 % Monocytes (%) (Auto) 13.2 H 3.0-13.0 % Eosinophils (%) (Auto) 0.0 0.0-8.0 % Basophils (%) (Auto) 0.1 0.0-5.0 % Neutrophils # (Auto) 5.5 1.8-7.7 K/uL Lymphocytes # (Auto) 1.1 1.0-4.8 K/uL Monocytes # (Auto) 1.0 0.1-1.0 K/uL Eosinophils # (Auto) 0.00 0.00-0.70 K/uL Basophils # (Auto) 0.01 0.00-0.20 K/uL Absolute Immature Granulocyte (auto 0.03 0-1 K/uL Nucleated Red Blood Cells 0.0 0.0-0.19 % Chemistry Labs: Test 08/26/25 08:01 08/26/25 04:07 08/25/25 03:08 08/24/25 13:04 Range/Units Whole Blood Glucose 127 H 70-110 MG/DL Sodium Level 141 136-145 mmol/L Potassium Level 4.2 3.5-5.1 mmol/L Chloride Level 104 101-111 mmol/L Carbon Dioxide Level 30 21-32 mmol/L Blood Urea Nitrogen 16 7-18 mg/dL Creatinine 1.4 H 0.5-1.3 mg/dL Glomerular Filtration Rate Calc 61 >90 mL/min Random Glucose 124 H 70-105 mg/dL Total Calcium 8.7 8.5-10.1 mg/dL Ionized Calcium 1.12 L 1.15-1.33 MMOL/L Phosphorus Level 5.5 H 2.5-4.9 mg/dL Magnesium Level 1.90 1.80-2.40 mg/dL Total Bilirubin 0.7 0.2-1.0 mg/dL Aspartate Amino Transf (AST/SGOT) 66 H 10-37 U/L Alanine Aminotransferase (ALT/SGPT) 41 12-78 U/L Alkaline Phosphatase 43 L 50-136 U/L Total Protein 6.5 6.0-8.3 g/dL Albumin 3.5 3.5-5.0 g/dL Triglycerides Level 170 30-200 mg/dL Cholesterol Level 207 H <200 mg/dL LDL Cholesterol 137 H 0-99 mg/dL HDL Cholesterol 35 29-71 mg/dL Hemoglobin A1c 6.1 H 4.0-6.0 % Estimated Average Glucose (eAG) 128 H 70-126 mg/dL Troponin I High Sensitivity 251 *H 4-75 ng/L Thyroid Stimulating Hormone (TSH) 9.27 H 0.36-3.74 uIU/mL Coagulation Labs: Test 08/26/25 04:07 08/25/25 16:00 Range/Units Prothrombin Time 11.1 9.6-11.6 SEC Prothromb Time International Ratio 1.05 0.85-1.15 Activated Partial Thromboplast Time 25.6 L 26.3-35.5 SEC Fibrinogen 210 180-350 mg/dL Diagnostics / Radiology: 2D echocardiogram 08/25/2025: Conclusion The cardiac chambers are normal in size. There is normal left ventricular wall thickness. No regional wall motion abnormalities noted. Left ventricular systolic function is low-normal, estimated LVEF is 50-55%. The left ventricular diastolic function is normal. Trace aortic regurgitation. Trace mitral regurgitation. Trace tricuspid regurgitation. PASP is normal. There is no pericardial effusion. Impression and Plan: Small non ST segment elevation TX with troponin of 0.099 (high sensitivity troponin 08/24/2025 at 251): Severe multivessel coronary artery disease by cardiac catheterization, with 99% proximal LAD stenosis 08/24/2025: Status post on pump coronary artery bypass graft x4 vessels (ARANA to the LAD (small ARANA), SVG to the diagonal 1, SVG to the OM2 and SVG to the PDA) and left atrial ligation with a 35 mm AtriCure clip on 08/25/[address] New Mondragon: LVEF of 50-55% by 2D echocardiogram 08/25/2025: -continue usual postop care per CV surgeon and cardiology follow-up -we will begin dual antiplatelet therapy with the addition of clopidogrel once chest tubes are out -continue high-intensity statin therapy with a atorvastatin 80 mg daily and the addition of ezetimibe 10 mg p.o. daily Mixed dyslipidemia: -Lipid panel 08/24/2025 demonstrating total cholesterol of 216, triglycerides 157, HDL 38 and LDL of 183 -continue atorvastatin 80 mg daily -add ezetemibe 10mg po daily Hypertension: -blood pressure stable we will follow postoperatively Resting sinus bradycardia: -avoid AV node blocking agents/beta-jem therapy New diagnosis of hypothyroidism with TSH of 9.27: -begin levothyroxine therapy per primary team Prediabetes: -hemoglobin A1c of 6.1 Nonobstructive carotid artery disease by carotid Doppler exam 08/23/2025 demonstrating: -Bilateral carotid Doppler exam 08/23/2025 demonstrated nonobstructive plaque in the left internal carotid artery of 20-30% -Right internal carotid artery with 30-40% stenosis and no flow in the right vertebral artery may reflect occlusion -continue plans for antiplatelet therapy Probable sleep apnea: -Will need outpatient follow up and sleep study PHYSICIAN ATTESTATION OF PHYSICIAN CORRECTIONAL OFFICER SERGEANT DOCUMENTATION: I attest that I was physically present for the spann portions of the service and evaluated the patient with the Physician Lunchroom Worker, and I reviewed and discussed the case with the Physician Lunchroom Worker and made modifications to the Physician Lunchroom Worker's findings and plans of care as documented above MICHELLE BURGOS Aug 26, 2025 09:36 JAMES BARBOSA MD Aug 26, 2025 09:45
[2025-08-26 11:54] LABS: ABG BASE EXCESS 0.4 mmol/L (-2.0-3.0); ABG HCO3 25.0 mmol/L (21.0-28.0); ABG OXYGEN SATURATION 93.9 % (94.0-98.0); ABG PCO2 40 mmHg (35-48); ABG PH 7.412 (7.350-7.450); CARBON MONOXIDE 0.7 % (0.5-1.5); PO2, ARTERIAL BG 72.0 mmHg (83.0-108.0); TEMPERATURE, CELSIUS BG 37.0 CELSIUS (35.5-37.0); VENT MODE, BG NC (ROOM AIR)
--- NOTE | 2025-08-26 12:46 | PN ---
[facility] PROGRESS NOTE Date of Service: Aug 26, 2025 Time of Service: 12:41 Attending doctor Ajay SUBJECTIVE: [08/24 This is a 49-year-old male with underlying history of obesity, hyperlipidemia who presented as a transfer from [facility] for evaluation by cardiovascular surgery for coronary artery bypass grafting. Patient and family reports that he initially presented to [facility] on 08/23/2025 when he had presented with chest pain and syncopal episode. Patient woke up close to 3:00 a.m. on 08/23/2025 with complaints of dyspnea and chest pain. He sat at the edge and had a syncopal episode. reported doing about three chest compressions and patient regained consciousness. Patient on presentation to [facility] ER was noted to have mild elevation of troponin. CT head without contrast showed no acute intracranial abnormality. Patient was admitted with NSTEMI and underwent cardiac catheterization by Dr. Mushtaq Hernandez today was found to have severe multivessel coronary artery disease with findings of 99% proximal to mid LAD stenosis, 80% mid LAD stenosis, 70% stenosis in diagonal 2, 50% proximal left circumflex and 70% mid left circumflex stenosis and 80% mid RCA stenosis and 70% distal RCA stenosis. Patient was transferred to [facility] for evaluation for coronary artery bypass grafting. Patient on bedside examination denies any active chest pain, chest pressure, dizziness, headache, focal weakness of upper or lower extremities. Patient will be admitted under hospitalist service and will be monitored closely. 08/25 patient was seen by nurse practitioner physician during rounding in room 224 Patient is pending CABG today in the afternoon. Continue NPO. Patient underwent a cardiac catheterization on 08/24/[address] Mushtaq Hernandez demonstrating severe multivessel coronary artery disease including a 30% left main, 99% proximal to mid LAD stenosis, 80% mid LAD stenosis, 70% stenosis in diagonal 2, 50% proximal left circumflex and 70% mid left circumflex stenosis and 80% mid RCA stenosis and 70% distal RCA stenosis. Today CABG will be performed and then patient will be transferred to ICU for closer observation after surgery. We will continue to monitor patient in the meantime. A.m. labs 08/26/25 patient was seen by nurse practitioner and physician during rounding in room 216. Patient is s/p CABG with a on 08/25/2025. Patient swine line to be room today. Chest tube continues to be connected to water- seal. Patient continues to be on insulin drip. As per cardiology continue postop care per CV surgeon and Cardiology follow-up. Patient to be started on antiplatelet therapy with the addition of clopidogrel once chest tubes are out. Continue high-intensity statin therapy with atorvastatin 80 mg daily and ezetemibe 10 mg p.o. daily. Patient will need outpatient follow-up and sleep study. We will continue to monitor patient in the meantime. A.m. labs] REVIEW OF SYSTEMS CONSTITUTIONAL: Denies fevers, chills, or night sweats. No unintentional weight loss reported. NEUROLOGICAL: Denies headache, amaurosis fugax, motor weakness, sensory deficit, vertigo/spinning sensation, gait abnormalities, or tremors. ENT: No hearing loss, otalgia, otorrhea, rhinitis, rhinorrhea, hoarseness, or sore throat. CARDIOVASCULAR: S/p CABG 08/25/2025 PULMONARY: Denies any shortness of breath, cough, phlegm/sputum, hemoptysis, pleuritic chest pain. SLEEP: Denies morning headaches, daytime somnolence or napping. Denies difficulty falling asleep, staying asleep, waking from sleep. Denies knowledge of snoring. GASTROINTESTINAL: Denies any type of dysphagia to either liquids or solids. Denies nausea, vomiting, pyrosis, early satiety, abdominal pain, diarrhea, constipation, or changes in stool consistency or caliber. Denies coffee-ground emesis, hematemesis, hematochezia, or melanotic stools. GENITOURINARY: Denies frequency, urgency, nocturia, hematuria or incontinence (Storage/Irritative symptoms.) Low urinary stream, straining to void, urinary intermittency or hesitancy, splitting of the voiding stream, terminal dribbling. ENDOCRINOLOGIC: Denies polyuria, polydipsia, polyphagia or heat/cold intolerances. HEMATOLOGIC: Denies thrombophilia/previous clots, or coagulopathy/bleeding disorders. ONCOLOGIC: Denies personal history of malignancy. DERMATOLOGIC: Denies rashes or pruritus. PSYCHIATRIC: Denies any suicidal or homicidal ideation. Denies hallucinations. PHYSICAL EXAM GENERAL APPEARANCE: The patient is awake, alert, and oriented, in no acute cardiopulmonary distress. NEUROLOGICAL: Cranial nerves II-XII grossly intact. Motor is 5/5 in bilateral upper and lower extremities proximal to distal. No sensory deficits. HEENT: Face is symmetric. Pupils are equal and reactive. Extraocular movements are intact. NECK: Supple. No JVD. No thyromegaly. No submental, submandibular, pre-/post auricular, occipital or supraclavicular lymphadenopathy. CHEST: Normal chest expansion. No Telemetry. LUNGS: Absence of any rales, rhonchi or any wheezing. CARDIOVASCULAR: Regular. S1 and S2 normal. No appreciable rubs, murmurs or gallops. ABDOMEN: Soft, nontender, and nondistended. There is no rebound, voluntary guarding, or rigidity. : Deferred. No Guerra. EXTREMITIES: Non-edematous and not cyanotic. No clubbing. Good capillary refill. SKIN: No skin breakdown. Vital Signs (last 8hr) Date Time Temp Pulse Resp B/P (MAP) Pulse Ox O2 Delivery O2 Flow Rate FiO2 08/26/25 11:37 99 Aerosol Mask+ 8 40 08/26/25 11:31 18 N/Cannula Low lpm 2.0 28 08/26/25 11:00 94 9 109/58 (75) 88 08/26/25 10:00 87 8 139/67 (91) 97 96/69 (78) 08/26/25 09:30 86 8 162/74 (103) 98 108/73 (85) 08/26/25 09:00 85 15 140/64 (89) 98 107/70 (82) 08/26/25 08:30 84 6 125/58 (80) 98 08/26/25 08:00 82 10 127/59 (81) 98 100/55 (70) 08/26/25 07:30 99 Aerosol Mask+ 8 40 08/26/25 07:30 98.8 08/26/25 07:30 99 17 103/62 (76) 08/26/25 07:00 88 120/60 (80) 98 08/26/25 07:00 77 18 N/Cannula Low lpm 4.0 36 08/26/25 06:45 93 9 114/55 (74) 98 90/50 (63) 08/26/25 06:30 88 8 117/57 (77) 97 84/58 (67) 08/26/25 06:15 90 10 118/57 (77) 97 08/26/25 06:00 94 19 131/65 (87) 99 40 110/72 (85) 08/26/25 05:45 105 15 141/96 (111) 99 08/26/25 05:30 99 26 136/71 (92) 99 08/26/25 05:15 98 25 131/66 (87) 97 08/26/25 05:00 90 12 129/62 (84) 99 40 100/62 (75) 08/26/25 04:45 95 18 130/74 (92) 98 LABS: Laboratory: Test 08/26/25 12:26 08/26/25 11:52 08/26/25 04:07 08/25/25 23:09 Range/Units Whole Blood Glucose 119 H 70-110 MG/DL Blood Gas Specimen Type Arterial Arterial Blood pH 7.412 7.350-7.450 Arterial Blood Partial Pressure CO2 40 35-48 mmHg Arterial Blood Partial Pressure O2 72.0 L 83.0-108.0 mmHg Arterial Blood HCO3 25.0 21.0-28.0 mmol/L Arterial Blood Oxygen Saturation 93.9 L 94.0-98.0 % Arterial Blood Base Excess 0.4 -2.0-3.0 mmol/L Hemoglobin (Blood Gas) 11.9 L 13.5-17.5 g/dL Sodium (Blood Gas) 137 136-145 MMOL/L Bedside Potassium (Blood Gas) 3.9 3.4-4.5 MMOL/L Bedside Chloride (Blood Gas) 100 98-107 MMOL/L Bedside Glucose (Blood Gas) 121 H 65-95 MG/DL Bedside Ionized Calcium (Blood Gas) 1.15 1.15-1.33 MMOL/L Bedside Lactic Acid (Blood Gas) 1.13 H 0.36-0.75 MMOL/L Blood Gas Temperature 37.0 35.5-37.0 CELSIUS Blood Gas Flow-by 2.00 0.00-15.00 L/min Blood Gas Vent Mode NC ROOM AIR FiO2 28.0 % Blood Gas Specimen Comment ALINEGEMMA White Blood Count 7.7 # 4.8-10.8 K/uL Red Blood Count 3.24 L 4.50-6.20 MIL/uL Hemoglobin 10.2 L 14.0-18.0 g/dL Hematocrit 30.6 L 42-54 % Mean Corpuscular Volume 94.4 79-99 fL Mean Corpuscular Hemoglobin 31.5 27.0-33.0 pg Mean Corpuscular Hemoglobin Concent 33.3 32.0-36.0 g/dL Red Cell Distribution Width 13.5 11.0-15.5 % Platelet Count 289 130-400 K/uL Mean Platelet Volume 10.1 7.5-10.5 fL Immature Granulocyte % (Auto) 0.4 0-1 % Neutrophils (%) (Auto) 71.6 40.0-77.0 % Lymphocytes (%) (Auto) 14.7 L 21.0-51.0 % Monocytes (%) (Auto) 13.2 H 3.0-13.0 % Eosinophils (%) (Auto) 0.0 0.0-8.0 % Basophils (%) (Auto) 0.1 0.0-5.0 % Neutrophils # (Auto) 5.5 1.8-7.7 K/uL Lymphocytes # (Auto) 1.1 1.0-4.8 K/uL Monocytes # (Auto) 1.0 0.1-1.0 K/uL Eosinophils # (Auto) 0.00 0.00-0.70 K/uL Basophils # (Auto) 0.01 0.00-0.20 K/uL Absolute Immature Granulocyte (auto 0.03 0-1 K/uL Nucleated Red Blood Cells 0.0 0.0-0.19 % Prothrombin Time 11.1 9.6-11.6 SEC Prothromb Time International Ratio 1.05 0.85-1.15 Activated Partial Thromboplast Time 25.6 L 26.3-35.5 SEC Sodium Level 141 136-145 mmol/L Potassium Level 4.2 3.5-5.1 mmol/L Chloride Level 104 101-111 mmol/L Carbon Dioxide Level 30 21-32 mmol/L Blood Urea Nitrogen 16 7-18 mg/dL Creatinine 1.4 H 0.5-1.3 mg/dL Glomerular Filtration Rate Calc 61 >90 mL/min Random Glucose 124 H 70-105 mg/dL Total Calcium 8.7 8.5-10.1 mg/dL Ionized Calcium 1.12 L 1.15-1.33 MMOL/L Phosphorus Level 5.5 H 2.5-4.9 mg/dL Magnesium Level 1.90 1.80-2.40 mg/dL Total Bilirubin 0.7 0.2-1.0 mg/dL Aspartate Amino Transf (AST/SGOT) 66 H 10-37 U/L Alanine Aminotransferase (ALT/SGPT) 41 12-78 U/L Alkaline Phosphatase 43 L 50-136 U/L Total Protein 6.5 6.0-8.3 g/dL Albumin 3.5 3.5-5.0 g/dL Blood Gas Respiration Rate 4.0 min. Blood Gas Tidal Volume 800 ml Blood Gas PEEP 5 cm H2O Test 08/25/25 16:00 08/25/25 14:10 08/25/25 03:08 08/24/25 13:04 Range/Units Fibrinogen 210 180-350 mg/dL Venous Blood pH 7.358 7.320-7.430 Venous Blood pCO2 at Patient Temp 43 38-54 Venous Blood pO2 at Patient Temp 37.7 23.0-48.0 mmHg Venous Blood HCO3 23.9 22.0-29.0 Venous Blood Base Excess -1.7 -2.0-3.0 Venous Blood Total Hemoglobin 12.5 L 13.5-17.5 Triglycerides Level 170 30-200 mg/dL Cholesterol Level 207 H <200 mg/dL LDL Cholesterol 137 H 0-99 mg/dL HDL Cholesterol 35 29-71 mg/dL Hemoglobin A1c 6.1 H 4.0-6.0 % Estimated Average Glucose (eAG) 128 H 70-126 mg/dL Troponin I High Sensitivity 251 *H 4-75 ng/L Thyroid Stimulating Hormone (TSH) 9.27 H 0.36-3.74 uIU/mL Current Medications Medications (Trade) Dose Ordered Sig/Allison Route PRN Reason Start Time Stop Time Status Last Admin Dose Admin Acetaminophen (TYLenol 325MG TAB) 650 mg Q4H PRN PO Temp >38.3C(AFTER EXTUBATION) 08/25/25 13:30 09/24/25 13:29 Acetaminophen (TYLenol 325MG TAB) 650 mg Q6H PRN PO MILD PAIN (1-3) 08/24/25 13:30 08/25/25 13:24 DC Acetaminophen (TYLenol 325MG TAB) 650 mg Q6H PRN PO MILD PAIN (1-3) 08/25/25 13:30 09/24/25 13:29 Acetaminophen (TYLenol 650MG SUPPOSITORY) 650 mg Q4H PRN RC Temp >38.3C WHILE INTUBATED 08/25/25 13:30 09/24/25 13:29 Acetaminophen (acetaMINOPHEN 1,000MG/100ML) 1,000 mg Q6H6 IV 08/25/25 18:00 08/26/25 17:59 08/26/25 12:03 1,000 MG Albumin Human 250 ml @ 0 mls/hr AD PRN IV IF HEMODYNAMICALLY UNSTABLE 08/25/25 13:30 08/25/25 17:17 DC 08/25/25 17:14 250 MLS/HR Aminocaproic Acid 88692 mg/Sodium Chloride 310 ml @ 25 mls/hr AD IV 08/25/25 13:30 08/25/25 13:19 DC Aminocaproic Acid 35792 mg/Sodium Chloride 480 ml @ 0 mls/hr AD PRN IV BLEEDING CONTROL 08/25/25 10:00 09/24/25 09:59 Aspirin (Aspirin 81mg Chew Tab) 81 mg DAILY PO 08/25/25 09:00 09/24/25 08:59 08/26/25 09:15 81 MG Atorvastatin Calcium (LIPItor 40MG) 40 mg HS PO 08/24/25 21:00 08/24/25 13:42 DC Atorvastatin Calcium (LIPItor 40MG) 80 mg HS PO 08/24/25 21:00 09/23/25 20:59 08/25/25 21:10 80 MG Calcium Gluconate 1 gm/Sodium Chloride 60 ml @ 200 mls/hr AD PRN IV HYPOCALCEMIA 08/25/25 13:30 09/24/25 13:29 08/26/25 04:14 200 MLS/HR Cefazolin Sodium (ANCEF 1 gm vial) 2 gm ONCALL IVP 08/25/25 07:00 08/25/25 17:31 DC 08/25/25 12:31 2 GM Cefazolin Sodium (Ancef) 2 gm Q8H IVPB 08/25/25 18:30 08/26/25 10:31 DC 08/26/25 11:19 2 GM Dexmedetomidine/ Sodium Chloride (PRECEdex 400MCG/ 100ML-NS) 400 mcg PROTOCOL IV 08/25/25 13:30 08/26/25 13:29 Dextrose (D50w) 50 ml AD PRN IV HYPOGLYCEMIA PROTOCOL 08/25/25 13:30 09/24/25 13:29 Docusate Sodium (COLace 100MG CAP) 100 mg BID PO 08/25/25 21:00 09/24/25 20:59 08/26/25 09:13 100 MG Epinephrine HCl 10 mg/Sodium Chloride 250 ml @ 0 mls/hr AD PRN IV TITRATE 08/25/25 10:00 09/24/25 09:59 Epinephrine HCl 10 mg/Sodium Chloride 250 ml @ 0 mls/hr AD PRN IV POST-OP CARDIOVASCULAR ORDERS 08/25/25 13:30 08/25/25 13:18 DC EZETIMIBE (Zetia) 10 mg DAILY PO 08/25/25 09:00 09/24/25 08:59 08/26/25 09:27 10 MG Famotidine (Pepcid 20mg Vial) 20 mg BID IV 08/25/25 21:00 09/24/25 20:59 08/26/25 09:15 20 MG Famotidine (Pepcid 20mg Tab) 20 mg BID PO 08/24/25 21:00 08/24/25 13:16 DC Famotidine (Pepcid 20mg Tab) 20 mg BID PO 08/24/25 21:00 08/25/25 13:09 DC 08/24/25 21:22 20 MG Furosemide (LASix 20MG TAB) 20 mg Q12H PO 08/27/25 09:00 09/26/25 08:59 Furosemide (LASix 20MG VIAL) 20 mg Q12H IV 08/26/25 09:00 08/27/25 08:59 08/26/25 09:15 20 MG Glucagon (Glucagon 1mg Kit) 1 mg AD PRN IM HYPOGLYCEMIA PROTOCOL 08/25/25 13:30 09/24/25 13:29 Heparin Sodium (Porcine) (HEParin 5,000 UNIT VIAL) *calculation based on ACTUAL B... AD PRN IV HEPARIN PROTOCOL 08/24/25 14:30 08/25/25 13:09 DC Heparin Sodium/ Dextrose 250 ml @ 0 mls/hr Q6H IV 08/24/25 14:30 08/25/25 13:09 DC 08/25/25 00:57 16.9 MLS/HR Insulin Human Regular 100 unit/ Sodium Chloride 100 ml @ 0 mls/hr AD IV 08/25/25 13:30 08/27/25 13:29 08/25/25 17:21 1.5 MLS/HR Lactulose (Constulose 20gm/ 30ml Udcup) 20 gm BID PRN PO CONSTIPATION 08/25/25 13:30 09/24/25 13:29 Lorazepam (AtiVAN) 0.5 mg BID PRN PO ANXIETY/AGITATION 08/24/25 16:30 08/25/25 13:09 DC 08/24/25 17:09 0.5 MG Magnesium Hydroxide (Milk Of Magnesium 30ml) 30 ml DAILY PRN PO CONSTIPATION 08/25/25 13:30 09/24/25 13:29 Magnesium Sulfate 50 ml @ 12.5 mls/hr AD PRN IV MAG LEVEL LESS THAN 2.0 08/25/25 13:30 09/24/25 13:29 08/26/25 05:08 12.5 MLS/HR Magnesium Sulfate 50 ml @ 0 mls/hr PROTOCOL IV 08/24/25 16:00 08/25/25 13:09 DC 08/24/25 16:53 100 MLS/HR Morphine Sulfate (morPHINE 4MG SYG) 0.5 mg Q2H PRN IV MODERATE PAIN (4-6) 08/25/25 13:30 09/01/25 13:29 Morphine Sulfate (morPHINE 4MG SYG) 1 mg Q2H PRN IV SEVERE PAIN (7-10) 08/25/25 13:30 08/26/25 13:29 08/25/25 19:27 1 MG Nitroglycerin (Nitro-Bid) 0.5 gm Q8H TD 08/24/25 13:30 08/24/25 15:35 DC Nitroglycerin (Nitroglycerin 1gm Oint) 0.5 inch Q8H TD 08/24/25 16:00 08/25/25 13:09 DC 08/25/25 09:55 0.5 INCH Nitroglycerin (Nitrostat) 0.4 mg AD PRN SL CHEST PAIN 08/24/25 13:30 08/25/25 13:09 DC Nitroglycerin/ Dextrose 0 ml @ 0 mls/hr AD IV 08/25/25 13:30 08/28/25 13:29 Norepinephrine 250 ml @ 0 mls/hr AD PRN IV TITRATE 08/25/25 11:00 09/24/25 09:59 Norepinephrine Bitartrate 250 ml @ 0 mls/hr AD PRN IV TITRATE 08/25/25 10:00 08/25/25 10:49 DC Norepinephrine Bitartrate 8 mg/ Dextrose 250 ml @ 0 mls/hr AD PRN IV POST-OP CARDIOVASCULAR ORDERS 08/25/25 13:30 08/25/25 13:17 DC Ondansetron HCl (zoFRAN 4MG INJ) 4 mg Q6H PRN IV NAUSEA/VOMITING 08/25/25 13:30 09/24/25 13:29 Ondansetron HCl (zoFRAN 4MG INJ) 4 mg Q6H PRN IVP NAUSEA/VOMITING 08/24/25 13:30 08/25/25 13:09 DC Potassium Phosphate 250 ml @ 42 mls/hr AD PRN IV LOW PHOS LEVEL 08/25/25 13:30 09/24/25 13:29 Potassium Chloride 100 ml @ 100 mls/hr AD PRN IV POTASSIUM PROTOCOL 08/24/25 16:00 08/25/25 13:09 DC Potassium Chloride 100 ml @ 100 mls/hr AD PRN IV HYPOKALEMIA 08/25/25 13:30 09/24/25 13:29 08/26/25 12:04 100 MLS/HR Potassium Chloride (K-Dur/Klor-Con 20meq) 20 meq AD PRN PO POTASSIUM PROTOCOL 08/24/25 16:00 08/25/25 13:09 DC Potassium Chloride (KCl 10% Elixir 20meq/15ml) 20 meq AD PRN PO POTASSIUM PROTOCOL 08/24/25 16:00 08/25/25 13:09 DC Propofol 100 ml @ 0 mls/hr AD PRN IV SEDATION 08/25/25 13:30 08/29/25 13:29 Sodium Bicarbonate (Sodium Bicarb 50meq 50ml Vial) 50 meq AD PRN IV OTHER[SEE DOSING INSTRUCTIONS] 08/25/25 13:30 08/28/25 13:29 Sodium Chloride 500 ml @ 0 mls/hr AD IV 08/25/25 13:30 09/24/25 13:29 08/25/25 22:11 3 MLS/HR Sodium Chloride 1,000 ml @ 10 mls/hr ONCE IV 08/25/25 13:30 08/26/25 13:29 08/25/25 17:16 10 MLS/HR Sodium Chloride (NS Flush 10ml) 10 ml Q8H PRN IVP IV LINE FLUSH 08/25/25 13:30 09/24/25 13:29 Tramadol HCl (UltRAM) 25 mg Q6H PRN PO MODERATE PAIN (4-6) 08/25/25 13:30 08/30/25 13:29 Tramadol HCl (UltRAM) 50 mg Q6H PRN PO SEVERE PAIN (7-10) 08/25/25 13:30 08/30/25 13:29 08/26/25 09:14 50 MG DIAGNOSTICS / RADIOLOGY: [ ] ASSESSMENT: NSTEMI, POA Syncope on 08/23/2025, POA Status post cardiac catheterization with findings of severe multivessel coronary artery disease with 99% proximal LAD stenosis, by Dr. Mushtaq Julian, 08/24/2025 History of uncontrolled hyperlipidemia, POA Hypertension, POA Prediabetes, POA Nonobstructive carotid artery disease, POA Rule out obstructive sleep apnea, POA Obesity, POA Prior history of significant smoking, 35 pack year, quit smoking last year, POA PLAN: Patient is s/p CABG with a on 08/25/2025. Patient swine line to be room today. Chest tube continues to be connected to water-seal. Patient continues to be on insulin drip. As per cardiology continue postop care per CV surgeon and Cardiology follow-up. Patient to be started on antiplatelet therapy with the addition of clopidogrel once chest tubes are out. Continue high- intensity statin therapy with atorvastatin 80 mg daily and ezetemibe 10 mg p.o. daily. Patient will need outpatient follow-up and sleep study. We will continue to monitor patient in the meantime. A.m. labs] Patient underwent a cardiac catheterization on 08/24/[address] Mushtaq Hernandez demonstrating severe multivessel coronary artery disease including a 30% left main, 99% proximal to mid LAD stenosis, 80% mid LAD stenosis, 70% stenosis in diagonal 2, 50% proximal left circumflex and 70% mid left circumflex stenosis and 80% mid RCA stenosis and 70% distal RCA stenosis. Patient will continue with admission in cardiac telemetry floor under telemetry monitoring Findings of carotid ultrasound showed nonobstructive plaque in the left internal carotid artery with 20-30% stenosis, right ICA with 30-40% stenosis and no flow in the right vertebral artery which could indicate occlusion, recommendations by Cardiology to continue with antiplatelet therapy All labs will be repeated in the morning We will maintain potassium greater than four and magnesium greater than two Patient will benefit from sleep study as outpatient to assess for sleep apnea We will keep patient on GI prophylaxis with Pepcid ATTESTATION BY PHYSICIAN I have seen and examined the patient. I reviewed the documentation, medical decision making, and treatment plan as noted by the mid-level provider above. I agree with the findings and plan of care. DHARA WEBER MD, [facility] Aug 26, 2025 12:46
--- NOTE | 2025-08-26 13:30 | NUR ---
BACILIO ROLLINS AND ART LINE WERE DISCONTINUED.
--- NOTE | 2025-08-26 17:48 | CONS ---
[facility] CONSULTATION NOTE Date Patient Seen: Aug 26, 2025 Time of Visit: 17:48 Supervising Physician: Jordy Lerma MD Reason for Consultation: [facility] Primary Care Physician: Self referral Outpatient Specialists: [ ] Inpatient Consults: Dr Juarez, Dr Reese, Dr Nichols PROBLEM LIST: NSTEMI POA Severe MVCAD s/p CABG x 4 and KENISHA clip on By Dr Juarez Acute post operative anemia from blood loss as expected DELANEY Hypocalcemia HLD Essential Hypertension Hyperglycemia Suspected undiagnosed and untreated LEOPOLDO 70 pack year Former smoker Morbid obesity BMI 40.3 HPI: This is a 49yr old male with a past medical HX of HTN, HLD and morbid obesity who presented from [facility] for evaluation of CABG. Pt initially went to [facility] for evaluations of chest pain with syncope episode. As per pt his performed a moment of CPR and he woke up. He underwent LHC by DR Julian and was found to MVCAD including lt main. He was evaluated by CV surgery and underwent on pump CABG x4. We were consulted by CV surgery for CCM. Pt was evaluated in the ICU day #1 post CABG. He continues on insulin gtt. No pressors. PAP via swan Keith catheter 33/11, CI 2.55, and CO 5.60. He is hemodynamically stable and saturating 96% with 2 L via NC. Chest tube still in place and he drained 345ml in the last 24 hours. Plans for removal of arterial line and swan today. Urine output of 3.2 L/24 hrs. On chemistry Cr 1.4 , DELANEY, Ionized calcium 1.12 and phosphorus 5.5. Chest XR with no pneumothorax, increased vascular congestion, lines appear in good position. PAST MEDICAL HX: see above PAST SURGICAL HX: noncontributory SOCIAL HISTORY: No tobacco, ETOH, or illicit drug use Coded Allergies: No Known Allergies (Unverified Allergy, Unknown, 08/24/25) REVIEW OF SYSTEMS: 12 point ROS reviewed with patient. Pertinent positives mentioned above. Otherwise negative. PHYSICAL EXAM: GENERAL: alert, weak, awake oriented x 3 HEENT: EOMI, Sclera non icteric, moist mucosa NECK: Supple, no JVD, trachea midline LUNGS: Diminished breath sounds bilaterally. No wheezes HEART: Regular rate and rhythm. Normal S1 and S2, without murmurs ABD: Abdomen soft, nontender. Bowel sounds present EXT: No clubbing cyanosis or edema NEURO: Alert and oriented to person, follows commands Vital Signs (last 8hr) Date Time Temp Pulse Resp B/P (MAP) Pulse Ox O2 Delivery O2 Flow Rate FiO2 08/26/25 16:13 99.3 08/26/25 15:00 99 Nasal Cannula* 2 N/A Aerosol Mask+ 08/26/25 14:59 08/26/25 14:30 82 5 123/71 (88) 98 08/26/25 14:00 86 6 133/74 (93) 96 08/26/25 13:00 85 7 128/59 (82) 97 88/55 (66) 08/26/25 12:39 86 9 124/56 (78) 98 08/26/25 12:09 93 135/65 (88) 95 08/26/25 12:00 98.2 08/26/25 11:39 91 7 146/68 (94) 98 08/26/25 11:37 99 Nasal Cannula* 2 28 08/26/25 11:31 18 N/Cannula Low lpm 2.0 28 08/26/25 11:00 94 9 109/58 (75) 88 08/26/25 10:00 87 8 139/67 (91) 97 96/69 (78) LABS: Hematology Labs: Test 08/26/25 04:07 Range/Units White Blood Count 7.7 # 4.8-10.8 K/uL Red Blood Count 3.24 L 4.50-6.20 MIL/uL Hemoglobin 10.2 L 14.0-18.0 g/dL Hematocrit 30.6 L 42-54 % Mean Corpuscular Volume 94.4 79-99 fL Mean Corpuscular Hemoglobin 31.5 27.0-33.0 pg Mean Corpuscular Hemoglobin Concent 33.3 32.0-36.0 g/dL Red Cell Distribution Width 13.5 11.0-15.5 % Platelet Count 289 130-400 K/uL Mean Platelet Volume 10.1 7.5-10.5 fL Immature Granulocyte % (Auto) 0.4 0-1 % Neutrophils (%) (Auto) 71.6 40.0-77.0 % Lymphocytes (%) (Auto) 14.7 L 21.0-51.0 % Monocytes (%) (Auto) 13.2 H 3.0-13.0 % Eosinophils (%) (Auto) 0.0 0.0-8.0 % Basophils (%) (Auto) 0.1 0.0-5.0 % Neutrophils # (Auto) 5.5 1.8-7.7 K/uL Lymphocytes # (Auto) 1.1 1.0-4.8 K/uL Monocytes # (Auto) 1.0 0.1-1.0 K/uL Eosinophils # (Auto) 0.00 0.00-0.70 K/uL Basophils # (Auto) 0.01 0.00-0.20 K/uL Absolute Immature Granulocyte (auto 0.03 0-1 K/uL Nucleated Red Blood Cells 0.0 0.0-0.19 % Chemistry Labs: Test 08/26/25 16:07 08/26/25 04:07 08/25/25 03:08 Range/Units Whole Blood Glucose 108 70-110 MG/DL Sodium Level 141 136-145 mmol/L Potassium Level 4.2 3.5-5.1 mmol/L Chloride Level 104 101-111 mmol/L Carbon Dioxide Level 30 21-32 mmol/L Blood Urea Nitrogen 16 7-18 mg/dL Creatinine 1.4 H 0.5-1.3 mg/dL Glomerular Filtration Rate Calc 61 >90 mL/min Random Glucose 124 H 70-105 mg/dL Total Calcium 8.7 8.5-10.1 mg/dL Ionized Calcium 1.12 L 1.15-1.33 MMOL/L Phosphorus Level 5.5 H 2.5-4.9 mg/dL Magnesium Level 1.90 1.80-2.40 mg/dL Total Bilirubin 0.7 0.2-1.0 mg/dL Aspartate Amino Transf (AST/SGOT) 66 H 10-37 U/L Alanine Aminotransferase (ALT/SGPT) 41 12-78 U/L Alkaline Phosphatase 43 L 50-136 U/L Total Protein 6.5 6.0-8.3 g/dL Albumin 3.5 3.5-5.0 g/dL Triglycerides Level 170 30-200 mg/dL Cholesterol Level 207 H <200 mg/dL LDL Cholesterol 137 H 0-99 mg/dL HDL Cholesterol 35 29-71 mg/dL Coagulation Labs: Test 08/26/25 04:07 08/25/25 16:00 Range/Units Prothrombin Time 11.1 9.6-11.6 SEC Prothromb Time International Ratio 1.05 0.85-1.15 Activated Partial Thromboplast Time 25.6 L 26.3-35.5 SEC Fibrinogen 210 180-350 mg/dL DIAGNOSTICS / RADIOLOGY RESULTS: [ ] PLAN Follow CT surgeon recommendations Follow cardiology recommendations Multimodal pain management Monitoring H&H Monitor chest tube output Chest x-ray in the morning Monitor ABGs Transfuse if absolutely necessary to keep hemoglobin above 8 Maintain O2 sats greater than 92% Incentive spirometry Glycemic control with goal of 80-180 Referral for cardiac rehabilitation Speech to eval once patient is extubated monitor electrolytes: K Goal of 4 Magnesium goal of 2 Replace accordingly NEURO: Minimize central acting medications as possible. Fall Precautions. Well lighted room through the day and minimize interruptions through the night to prevent acute delirium. PULMONARY: Supplemental 02 as needed Titrate Fio2 to keep Spo2 > or = 90% DuoNebs and CPT as needed IS hourly while awake for pulmonary hygiene Out of bed to chair as tolerated CARDIOVASCULAR: Follow hemodynamics. Titrate vasopressor to keep MAP >65 or systolic blood pressure >95mmHg DRIPS: insulin LINES: swan-keith RT IJ cordis, chest tube corie roe GI & NUTRITION: Continue nutritional support Aspirations precautions Prokinetic agents and laxatives as needed KIDNEYS & ELECTROLYTES: Strict monitoring of intake and output Daily weights Avoid nephrotoxic agents Monitor electrolytes and replace as needed Goal urine output of 30mL/hr or 0.5mL/kg/hr Urine output: [ ] Fluid Balance: [ ] ENDOCRINE: Maintain blood glucose between 100-180 at all times. Insulin sliding scale for blood glucose management INFECTIOUS DISEASE: Trend temperature. Coppola-culture if febrile. Micro: [ ] MRSA negative Antibiotics: [ none] HEMATOLOGY & COAGULATION: Monitor H&H. Keep Hgb > 7 Transfuse 1 unit of PRBC for Hgb < 7 Transfuse 1 pack of platelets of platelets < 20, 000 Watch for any signs and symptoms of bleeding SKIN: Pressure ulcer prevention per facility protocol Rehab: PT/OT Prophylaxis: GI: Famotidine DVT: SCD's per CV Code Status: Full Resuscitation Disposition: ICU Other: Total patient care time exceeds 35 minutes excluding all procedures. Case was discussed and seen with my supervising physician. The above plan was formulated and agreed upon. ATTESTATION BY PHYSICIAN I reviewed the documentation, medical decision making, and treatment plan as noted by the mid-level provider above. I agree with the findings and plan of care. Jordy Lerma MD, [facility] Aug 26, 2025 17:48
--- NOTE | 2025-08-26 19:43 | EKG ---
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
[2025-08-27] VITALS (21 sets, daily range): BP systolic 92–179; BP diastolic 63–99; PULSE 82–110; RESP 16–23; TEMP 98.8–100.6; O2SAT 96–98
--- NOTE | 2025-08-27 00:02 | PN ---
SUBJECTIVE: The patient is postop day #1 from coronary artery bypass grafting. The patient is extubated. He has just been weaned off of all pressors and he is sitting up in a bedside chair. OBJECTIVE: VITAL SIGNS: His vital signs reveal a pulse of 85. His blood pressure is 116/54. Respirations are 15. Oxygen saturation is 93% on nasal cannula oxygen. HEENT: Exam is normocephalic, atraumatic. Extraocular movements intact. CHEST: Sternal wound was bandaged. His chest tubes are in place with 350 mL of output since the time of surgery yesterday. HEART: S1 and S2 and regular. LUNGS: Reveal bilateral rhonchi and are somewhat distant. ABDOMEN: Reveals positive bowel sounds and is soft and nontender. GENITOURINARY: He has a Guerra catheter in his bladder. EXTREMITIES: He has a left radial art line. He has DOROTEO stockings and SCDs on his lower extremities. ASSESSMENT AND PLAN: Status post coronary artery bypass grafting. Begin aspirin, Lasix. Keep chest tubes on suction. Discontinue his art line and Loma-Keith catheter leaving his Cordis introducer in place. Keep patient up in the bedside chair as tolerated. Postoperative acute pulmonary insufficiency. Teach incentive spirometry. Wean nasal cannula oxygen. Maintain oxygen saturation greater than 90% on room air. Hypercholesterolemia. Begin Lipitor 80 mg p.o. at bedtime and low cholesterol, cardiac diet. Deep venous thrombosis prophylaxis. Continue SCDs to the lower extremities until chest tubes are out. Time spent 30 minutes. The patient is critically ill in the ICU. TID: [id number] RECEIPT: [id number]
[2025-08-27 04:56] LABS: IMMATURE GRANULOCYTE ABSOLUTE 0.06 K/uL (0-1); NUCLEATED RED BLOOD CELLS 0.0 % (0.0-0.19); PLATELET COUNT (AUTO) 240 K/uL (130-400); RED BLOOD CELL COUNT(AUTO) 3.40 MIL/uL (4.50-6.20); RED CELL DISTRIBUTION WIDTH 13.8 % (11.0-15.5); WHITE BLOOD COUNT (AUTO) 10.1 K/uL (4.8-10.8)
[2025-08-27 05:18] LABS: ASPARTATE AMINOTRANSFERASE 55.0 U/L (10-37); CREATININE 1.1 mg/dL (0.5-1.3); GLOMERULAR FILTR. RATE CALC 82.0 mL/min (>90); GLUCOSE,RANDOM 113.0 mg/dL (70-105); SODIUM SERUM 135.0 mmol/L (136-145); TOTAL PROTEIN, SERUM 7.1 g/dL (6.0-8.3); UREA NITROGEN, BLOOD 16.0 mg/dL (7-18)
--- NOTE | 2025-08-27 07:03 | HMCIMG ---
EXAM: CR Chest, 1 View. CLINICAL HISTORY: s/p CABG COMPARISON: None. TECHNIQUE: Frontal radiograph of the chest was obtained. FINDINGS: Patient is in slight rotation. Left basal atelectasis. Inhomogeneous radiopacities in left mid lung, suggestive of patchy consolidation. No pleural effusion on either side in current study. There is no pneumothorax. The cardiomediastinal silhouette is within normal limits. Radiopaque tube/line noted on the right side with its tip projecting over the right atrium. Advised clinical correlation. Few small radiodensities noted over the cardiac shadow along with sternotomy sutures noted, post-operative changes. No acute osseous abnormality is seen. IMPRESSION: Patchy consolidation in left mid lung. /[place]
--- NOTE | 2025-08-27 09:06 | PN ---
[facility] CARDIOLOGY PROGRESS NOTE Date Patient Seen: Aug 27, 2025 Time of Visit: 08:53 Interval History: This is a 49-year-old [place] male with a past medical history of hypertension, hyperlipidemia on no prior medical therapy, pre-diabetes, prematur e coronary artery disease with 2 brothers having heart disease in her 40s and prior heavy tobacco use reporting 35 years of tobacco use of 2 packs per day but quit 1 year ago, who initially presented to [facility] on 08/23/2025 due to a syncopal episode and associated chest pain. He ruled in for a small non ST segment elevation MD with troponin levels of 0.044, 0.097 and 0.099 (251 at [facility] on 08/24/2025). He underwent a cardiac catheterization on 08/24/[address] Mushtaq Hernandez demonstrating severe multivessel coronary artery disease including a 30% left main, 99% proximal to mid LAD stenosis, 80% mid LAD stenosis, 70% stenosis in diagonal 2, 50% proximal left circumflex and 70% mid left circumflex stenosis and 80% mid RCA stenosis and 70% distal RCA stenosis. A pre-op 2D echocardiogram 08/25/2025 demonstrated an LVEF of 50-55% and normal valvular structures. Today is postop day #2 Status post on pump coronary artery bypass graft x 4 vessels (ARANA to the LAD (small ARANA), SVG to the diagonal 1, SVG to the OM2 and SVG to the PDA) and left atrial ligation with a 35 mm AtriCure clip on 08/25/[address] New Mondragon. The patient continues with an uneventful recovery and offers no complaints other than incisional discomfort. He is off all cardiac acting drips, has had no complicating atrial arrhythmia, and chest tube output is reduced today. He appears stable for transferred to telemetry for progressive mobilization. Physical Examination: GENERAL: No acute distress. HEAD: Normal with no signs of head trauma. EYES: PERRLA, EOMI, conjunctiva and sclera normal. NECK: Supple without JVD. There is no tenderness, lymphadenopathy, or masses. No thyromegaly. Normal carotid upstrokes without bruits. Right jugular central line in place LUNGS: Diminished breath sounds at the bases bilaterally HEART: Normal rate and rhythm. Normal S1 and S2 without murmurs, gallop or rub. Median sternotomy is with dressing and chest tubes are in place with mild blood staining. VASC: Peripheral pulses +2 bilaterally. EXT: No clubbing, cyanosis or edema. NEURO: Awake, alert, and oriented x3. No focal neurological deficits noted. Laboratory: Hematology Labs: Test 08/27/25 04:29 Range/Units White Blood Count 10.1 4.8-10.8 K/uL Red Blood Count 3.40 L 4.50-6.20 MIL/uL Hemoglobin 10.7 L 14.0-18.0 g/dL Hematocrit 32.4 L 42-54 % Mean Corpuscular Volume 95.3 79-99 fL Mean Corpuscular Hemoglobin 31.5 27.0-33.0 pg Mean Corpuscular Hemoglobin Concent 33.0 32.0-36.0 g/dL Red Cell Distribution Width 13.8 11.0-15.5 % Platelet Count 240 130-400 K/uL Mean Platelet Volume 10.0 7.5-10.5 fL Immature Granulocyte % (Auto) 0.6 0-1 % Neutrophils (%) (Auto) 68.0 40.0-77.0 % Lymphocytes (%) (Auto) 17.5 L 21.0-51.0 % Monocytes (%) (Auto) 13.6 H 3.0-13.0 % Eosinophils (%) (Auto) 0.2 0.0-8.0 % Basophils (%) (Auto) 0.1 0.0-5.0 % Neutrophils # (Auto) 6.9 1.8-7.7 K/uL Lymphocytes # (Auto) 1.8 1.0-4.8 K/uL Monocytes # (Auto) 1.4 H 0.1-1.0 K/uL Eosinophils # (Auto) 0.02 0.00-0.70 K/uL Basophils # (Auto) 0.01 0.00-0.20 K/uL Absolute Immature Granulocyte (auto 0.06 0-1 K/uL Nucleated Red Blood Cells 0.0 0.0-0.19 % Chemistry Labs: Test 08/27/25 04:55 08/27/25 04:29 08/26/25 04:07 Range/Units Whole Blood Glucose 120 H 70-110 MG/DL Sodium Level 135 L 136-145 mmol/L Potassium Level 3.7 3.5-5.1 mmol/L Chloride Level 96 L 101-111 mmol/L Carbon Dioxide Level 32 21-32 mmol/L Blood Urea Nitrogen 16 7-18 mg/dL Creatinine 1.1 0.5-1.3 mg/dL Glomerular Filtration Rate Calc 82 >90 mL/min Random Glucose 113 H 70-105 mg/dL Total Calcium 8.5 8.5-10.1 mg/dL Magnesium Level 2.00 1.80-2.40 mg/dL Total Bilirubin 1.1 H 0.2-1.0 mg/dL Aspartate Amino Transf (AST/SGOT) 55 H 10-37 U/L Alanine Aminotransferase (ALT/SGPT) 38 12-78 U/L Alkaline Phosphatase 51 50-136 U/L Total Protein 7.1 6.0-8.3 g/dL Albumin 3.3 L 3.5-5.0 g/dL Ionized Calcium 1.12 L 1.15-1.33 MMOL/L Phosphorus Level 5.5 H 2.5-4.9 mg/dL Coagulation Labs: Test 08/26/25 04:07 08/25/25 16:00 Range/Units Prothrombin Time 11.1 9.6-11.6 SEC Prothromb Time International Ratio 1.05 0.85-1.15 Activated Partial Thromboplast Time 25.6 L 26.3-35.5 SEC Fibrinogen 210 180-350 mg/dL Diagnostics / Radiology: 2D echocardiogram 08/25/2025: Conclusion The cardiac chambers are normal in size. There is normal left ventricular wall thickness. No regional wall motion abnormalities noted. Left ventricular systolic function is low-normal, estimated LVEF is 50-55%. The left ventricular diastolic function is normal. Trace aortic regurgitation. Trace mitral regurgitation. Trace tricuspid regurgitation. PASP is normal. There is no pericardial effusion. Impression and Plan: Small non ST segment elevation MD with high sensitivity troponin 08/24/2025 at 251: Severe multivessel coronary artery disease by cardiac catheterization, with 99% proximal LAD stenosis 08/24/2025: CAD status post CABG x4 with ARANA-LAD, SVG-diagonal one, SVG-OM2, and SVG-PDA 08/25/2025 with AtriCure left atrial appendage clip: -continue usual postoperative care -high-intensity statin therapy to LDL cholesterol less than 55 -low-dose beta-jem therapy given resting bradycardia in the 50s on arrival -dual antiplatelet therapy to complete one year. Start clopidogrel once chest tube is removed. Mixed dyslipidemia: -Lipid panel 08/24/2025 demonstrating total cholesterol of 216, triglycerides 157, HDL 38 and LDL of 183 -continue atorvastatin 80 mg daily -add ezetemibe 10mg po daily Hypertension: -blood pressure stable we will follow postoperatively Resting sinus bradycardia: -cautious beta-jem at low dose only New diagnosis of hypothyroidism with TSH of 9.27: -begin levothyroxine therapy 50 mcg p.o. daily Prediabetes: -hemoglobin A1c of 6.1 Nonobstructive carotid artery disease by carotid Doppler exam 08/23/2025 demonstrating: -Bilateral carotid Doppler exam 08/23/2025 demonstrated nonobstructive plaque in the left internal carotid artery of 20-30% -Right internal carotid artery with 30-40% stenosis and no flow in the right vertebral artery may reflect occlusion -continue plans for antiplatelet therapy Probable sleep apnea: -Will need outpatient follow up and sleep study JAMES BARBOSA MD Aug 27, 2025 09:06
--- NOTE | 2025-08-27 09:18 | PN ---
[facility] PROGRESS NOTE Date Patient Seen: Aug 27, 2025 Time of Visit: 09:18 Supervising Physician: Bao Mary MD Primary Care Physician: Self referral MD Outpatient Specialists: [ ] Inpatient Consults: Dr Juarez, Dr Reese, Dr Nichols PROBLEM LIST: NSTEMI POA Severe MVCAD s/p CABG x 4 and KENISHA clip on By Dr Juarez Acute post operative anemia from blood loss as expected DELANEY Hypocalcemia HLD Essential Hypertension Hyperglycemia Suspected undiagnosed and untreated LEOPOLDO 70 pack year Former smoker Morbid obesity BMI 40.3 INTERVAL HISTORY: Patient is awake alert and oriented x3. He is off drips. Pending chest tube removed for today. He has been downgraded to PCCU status per CV surgery. H&H stable 10.732.4 white count continues normal. Chemistry unremarkable. Kidney is improving creatinine 1.1 GFR of 82. Patient denies chest pain palpitation shortness for breath. No arrhythmias has been reported. As per RN no major overnight events. Chest x-ray with decreased pulmonary vascular congestion. Urine output is good of 2.8 L in the last 24 hours with a negative balance of 2.6 L chest tube drained only 190 mL in the last 24 hours. REVIEW OF SYSTEMS: 12 point ROS reviewed with patient. Pertinent positives mentioned above. Otherwise negative. PHYSICAL EXAM: GENERAL: alert, weak, awake oriented x 3 HEENT: EOMI, Sclera non icteric, moist mucosa NECK: Supple, no JVD, trachea midline LUNGS: Diminished breath sounds bilaterally. No wheezes HEART: Regular rate and rhythm. Normal S1 and S2, without murmurs ABD: Abdomen soft, nontender. Bowel sounds present EXT: No clubbing cyanosis or edema NEURO: Alert and oriented to person, follows commands Vital Signs (last 8hr) Date Time Temp Pulse Resp B/P (MAP) Pulse Ox O2 Delivery O2 Flow Rate FiO2 08/27/25 07:00 99.7 105 23 139/74 95 Nasal Cannula 2.0 08/27/25 04:08 98.8 108 23 157/99 96 Nasal Cannula 2.0 08/27/25 04:00 96 Nasal Cannula* 2 N/A Aerosol Mask+ 08/27/25 03:38 105 18 145/94 96 Nasal Cannula 2.0 08/27/25 03:08 110 22 169/99 96 Nasal Cannula 2.0 08/27/25 02:38 110 21 167/89 96 Nasal Cannula 2.0 08/27/25 02:08 107 21 179/81 96 Nasal Cannula 2.0 LABS: Hematology Labs: Test 08/27/25 04:29 Range/Units White Blood Count 10.1 4.8-10.8 K/uL Red Blood Count 3.40 L 4.50-6.20 MIL/uL Hemoglobin 10.7 L 14.0-18.0 g/dL Hematocrit 32.4 L 42-54 % Mean Corpuscular Volume 95.3 79-99 fL Mean Corpuscular Hemoglobin 31.5 27.0-33.0 pg Mean Corpuscular Hemoglobin Concent 33.0 32.0-36.0 g/dL Red Cell Distribution Width 13.8 11.0-15.5 % Platelet Count 240 130-400 K/uL Mean Platelet Volume 10.0 7.5-10.5 fL Immature Granulocyte % (Auto) 0.6 0-1 % Neutrophils (%) (Auto) 68.0 40.0-77.0 % Lymphocytes (%) (Auto) 17.5 L 21.0-51.0 % Monocytes (%) (Auto) 13.6 H 3.0-13.0 % Eosinophils (%) (Auto) 0.2 0.0-8.0 % Basophils (%) (Auto) 0.1 0.0-5.0 % Neutrophils # (Auto) 6.9 1.8-7.7 K/uL Lymphocytes # (Auto) 1.8 1.0-4.8 K/uL Monocytes # (Auto) 1.4 H 0.1-1.0 K/uL Eosinophils # (Auto) 0.02 0.00-0.70 K/uL Basophils # (Auto) 0.01 0.00-0.20 K/uL Absolute Immature Granulocyte (auto 0.06 0-1 K/uL Nucleated Red Blood Cells 0.0 0.0-0.19 % Chemistry Labs: Test 08/27/25 04:55 08/27/25 04:29 08/26/25 04:07 Range/Units Whole Blood Glucose 120 H 70-110 MG/DL Sodium Level 135 L 136-145 mmol/L Potassium Level 3.7 3.5-5.1 mmol/L Chloride Level 96 L 101-111 mmol/L Carbon Dioxide Level 32 21-32 mmol/L Blood Urea Nitrogen 16 7-18 mg/dL Creatinine 1.1 0.5-1.3 mg/dL Glomerular Filtration Rate Calc 82 >90 mL/min Random Glucose 113 H 70-105 mg/dL Total Calcium 8.5 8.5-10.1 mg/dL Magnesium Level 2.00 1.80-2.40 mg/dL Total Bilirubin 1.1 H 0.2-1.0 mg/dL Aspartate Amino Transf (AST/SGOT) 55 H 10-37 U/L Alanine Aminotransferase (ALT/SGPT) 38 12-78 U/L Alkaline Phosphatase 51 50-136 U/L Total Protein 7.1 6.0-8.3 g/dL Albumin 3.3 L 3.5-5.0 g/dL Ionized Calcium 1.12 L 1.15-1.33 MMOL/L Phosphorus Level 5.5 H 2.5-4.9 mg/dL Coagulation Labs: Test 08/26/25 04:07 08/25/25 16:00 Range/Units Prothrombin Time 11.1 9.6-11.6 SEC Prothromb Time International Ratio 1.05 0.85-1.15 Activated Partial Thromboplast Time 25.6 L 26.3-35.5 SEC Fibrinogen 210 180-350 mg/dL DIAGNOSTICS / RADIOLOGY RESULTS: [ ] PLAN Follow CT surgeon recommendations Follow cardiology recommendations Multimodal pain management Monitoring H&H Monitor chest tube output Chest x-ray in the morning Monitor ABGs Transfuse if absolutely necessary to keep hemoglobin above 8 Maintain O2 sats greater than 92% Incentive spirometry Glycemic control with goal of 80-180 Referral for cardiac rehabilitation Speech to eval once patient is extubated monitor electrolytes: K Goal of 4 Magnesium goal of 2 Replace accordingly Okay to downgrade to PCCU. NEURO: Minimize central acting medications as possible. Fall Precautions. Well lighted room through the day and minimize interruptions through the night to prevent acute delirium. PULMONARY: Supplemental 02 as needed Titrate Fio2 to keep Spo2 > or = 90% DuoNebs and CPT as needed IS hourly while awake for pulmonary hygiene Out of bed to chair as tolerated CARDIOVASCULAR: Follow hemodynamics. Titrate vasopressor to keep MAP >65 or systolic blood pressure >95mmHg DRIPS: insulin LINES: swan-sabas RT IJ cordis, chest tube corie roe GI & NUTRITION: Continue nutritional support Aspirations precautions Prokinetic agents and laxatives as needed KIDNEYS & ELECTROLYTES: Strict monitoring of intake and output Daily weights Avoid nephrotoxic agents Monitor electrolytes and replace as needed Goal urine output of 30mL/hr or 0.5mL/kg/hr Urine output: [ ] Fluid Balance: [ ] ENDOCRINE: Maintain blood glucose between 100-180 at all times. Insulin sliding scale for blood glucose management INFECTIOUS DISEASE: Trend temperature. Coppola-culture if febrile. Micro: [ ] MRSA negative Antibiotics: [ none] HEMATOLOGY & COAGULATION: Monitor H&H. Keep Hgb > 7 Transfuse 1 unit of PRBC for Hgb < 7 Transfuse 1 pack of platelets of platelets < 20, 000 Watch for any signs and symptoms of bleeding SKIN: Pressure ulcer prevention per facility protocol Rehab: PT/OT Prophylaxis: GI: Famotidine DVT: SCD's per CV Code Status: Full Resuscitation Disposition: ICU Other: Total patient care time exceeds 35 minutes excluding all procedures. Case was discussed and seen with my supervising physician. The above plan was formulated and agreed upon. ATTESTATION BY PHYSICIAN I reviewed the documentation, medical decision making, and treatment plan as not ed by the mid-level provider above. I agree with the findings and plan of care. Bao Mary MD, [facility] Aug 27, 2025 09:18
[2025-08-27] MEDS ORDERED: ATOR40TA69 PO (09:40)
--- NOTE | 2025-08-27 13:44 | PN ---
CATAL[facility] PROGRESS NOTE Date of Service: Aug 27, 2025 Time of Service: 13:[address] Moss SUBJECTIVE: [08/24 This is a 49-year-old male with underlying history of obesity, hyperlipidemia who presented as a transfer from [facility] for evaluation by cardiovascular surgery for coronary artery bypass grafting. Patient and family reports that he initially presented to [facility] on 08/23/2025 when he had presented with chest pain and syncopal episode. Patient woke up close to 3:00 a.m. on 08/23/2025 with complaints of dyspnea and chest pain. He sat at the edge and had a syncopal episode. reported doing about three chest compressions and patient regained consciousness. Patient on presentation to [facility] ER was noted to have mild elevation of troponin. CT head without contrast showed no acute intracranial abnormality. Patient was admitted with NSTEMI and underwent cardiac catheterization by Dr. Mushtaq Hernandez today was found to have severe multivessel coronary artery disease with findings of 99% proximal to mid LAD stenosis, 80% mid LAD stenosis, 70% stenosis in diagonal 2, 50% proximal left circumflex and 70% mid left circumflex stenosis and 80% mid RCA stenosis and 70% distal RCA stenosis. Patient was transferred to [facility] for evaluation for coronary artery bypass grafting. Patient on bedside examination denies any active chest pain, chest pressure, dizziness, headache, focal weakness of upper or lower extremities. Patient will be admitted under hospitalist service and will be monitored closely. 08/25 patient was seen by nurse practitioner physician during rounding in room 224 Patient is pending CABG today in the afternoon. Continue NPO. Patient underwent a cardiac catheterization on 08/24/[address] Mushtaq Hernandez demonstrating severe multivessel coronary artery disease including a 30% left main, 99% proximal to mid LAD stenosis, 80% mid LAD stenosis, 70% stenosis in diagonal 2, 50% proximal left circumflex and 70% mid left circumflex stenosis and 80% mid RCA stenosis and 70% distal RCA stenosis. Today CABG will be performed and then patient will be transferred to ICU for closer observation after surgery. We will continue to monitor patient in the meantime. A.m. labs 08/26/25 patient was seen by nurse practitioner and physician during rounding in room 216. Patient is s/p CABG with a on 08/25/2025. Patient swine line to be room today. Chest tube continues to be connected to water- seal. Patient continues to be on insulin drip. As per cardiology continue postop care per CV surgeon and Cardiology follow-up. Patient to be started on antiplatelet therapy with the addition of clopidogrel once chest tubes are out. Continue high-intensity statin therapy with atorvastatin 80 mg daily and ezetemibe 10 mg p.o. daily. Patient will need outpatient follow-up and sleep study. We will continue to monitor patient in the meantime. A.m. labs 08/27/25 patient was seen by nurse practitioner and physician during rounding room 216. [place] line was already removed. Patient is still has a chest tube to water seal, which we will be removed today in the afternoon. Patient is off the insulin drip. Patient will be downgraded to PCCU. Case management consulted for IRU versus SNF versus home with the home health. We will continue to monitor patient in the meantime. A.m. labs.] REVIEW OF SYSTEMS CONSTITUTIONAL: Denies fevers, chills, or night sweats. No unintentional weight loss reported. NEUROLOGICAL: Denies headache, amaurosis fugax, motor weakness, sensory deficit, vertigo/spinning sensation, gait abnormalities, or tremors. ENT: No hearing loss, otalgia, otorrhea, rhinitis, rhinorrhea, hoarseness, or sore throat. CARDIOVASCULAR: S/p CABG 08/25/2025 PULMONARY: Denies any shortness of breath, cough, phlegm/sputum, hemoptysis, pleuritic chest pain. SLEEP: Denies morning headaches, daytime somnolence or napping. Denies difficulty falling asleep, staying asleep, waking from sleep. Denies knowledge of snoring. GASTROINTESTINAL: Denies any type of dysphagia to either liquids or solids. Denies nausea, vomiting, pyrosis, early satiety, abdominal pain, diarrhea, constipation, or changes in stool consistency or caliber. Denies coffee-ground emesis, hematemesis, hematochezia, or melanotic stools. GENITOURINARY: Denies frequency, urgency, nocturia, hematuria or incontinence (Storage/Irritative symptoms.) Low urinary stream, straining to void, urinary intermittency or hesitancy, splitting of the voiding stream, terminal dribbling. ENDOCRINOLOGIC: Denies polyuria, polydipsia, polyphagia or heat/cold intolerances. HEMATOLOGIC: Denies thrombophilia/previous clots, or coagulopathy/bleeding disorders. ONCOLOGIC: Denies personal history of malignancy. DERMATOLOGIC: Denies rashes or pruritus. PSYCHIATRIC: Denies any suicidal or homicidal ideation. Denies hallucinations. PHYSICAL EXAM GENERAL APPEARANCE: The patient is awake, alert, and oriented, in no acute cardiopulmonary distress. NEUROLOGICAL: Cranial nerves II-XII grossly intact. Motor is 5/5 in bilateral upper and lower extremities proximal to distal. No sensory deficits. HEENT: Face is symmetric. Pupils are equal and reactive. Extraocular movements are intact. NECK: Supple. No JVD. No thyromegaly. No submental, submandibular, pre- /postauricular, occipital or supraclavicular lymphadenopathy. CHEST: Normal chest expansion. No Telemetry. LUNGS: Absence of any rales, rhonchi or any wheezing. CARDIOVASCULAR: Regular. S1 and S2 normal. No appreciable rubs, murmurs or gallops. ABDOMEN: Soft, nontender, and nondistended. There is no rebound, voluntary guarding, or rigidity. : Deferred. No Guerra. EXTREMITIES: Non-edematous and not cyanotic. No clubbing. Good capillary refill. SKIN: No skin breakdown. Vital Signs (last 8hr) Date Time Temp Pulse Resp B/P (MAP) Pulse Ox O2 Delivery O2 Flow Rate FiO2 08/27/25 12:00 96 Nasal Cannula* 2 N/A Aerosol Mask+ 08/27/25 11:00 107 20 122/87 96 Nasal Cannula 2.0 08/27/25 10:00 102 21 163/80 97 Nasal Cannula 2.0 08/27/25 09:00 106 20 138/90 96 Nasal Cannula 2.0 08/27/25 08:00 105 23 139/74 95 Nasal Cannula 2.0 08/27/25 08:00 98 Nasal Cannula* 2 N/A Aerosol Mask+ 08/27/25 07:10 106 20 N/Cannula Low lpm 2.0 28 08/27/25 07:00 99.7 105 23 139/74 95 Nasal Cannula 2.0 LABS: Laboratory: Test 08/27/25 11:02 08/27/25 04:29 08/26/25 11:52 08/26/25 04:07 Range/Units Whole Blood Glucose 126 H 70-110 MG/DL White Blood Count 10.1 4.8-10.8 K/uL Red Blood Count 3.40 L 4.50-6.20 MIL/uL Hemoglobin 10.7 L 14.0-18.0 g/dL Hematocrit 32.4 L 42-54 % Mean Corpuscular Volume 95.3 79-99 fL Mean Corpuscular Hemoglobin 31.5 27.0-33.0 pg Mean Corpuscular Hemoglobin Concent 33.0 32.0-36.0 g/dL Red Cell Distribution Width 13.8 11.0-15.5 % Platelet Count 240 130-400 K/uL Mean Platelet Volume 10.0 7.5-10.5 fL Immature Granulocyte % (Auto) 0.6 0-1 % Neutrophils (%) (Auto) 68.0 40.0-77.0 % Lymphocytes (%) (Auto) 17.5 L 21.0-51.0 % Monocytes (%) (Auto) 13.6 H 3.0-13.0 % Eosinophils (%) (Auto) 0.2 0.0-8.0 % Basophils (%) (Auto) 0.1 0.0-5.0 % Neutrophils # (Auto) 6.9 1.8-7.7 K/uL Lymphocytes # (Auto) 1.8 1.0-4.8 K/uL Monocytes # (Auto) 1.4 H 0.1-1.0 K/uL Eosinophils # (Auto) 0.02 0.00-0.70 K/uL Basophils # (Auto) 0.01 0.00-0.20 K/uL Absolute Immature Granulocyte (auto 0.06 0-1 K/uL Nucleated Red Blood Cells 0.0 0.0-0.19 % Sodium Level 135 L 136-145 mmol/L Potassium Level 3.7 3.5-5.1 mmol/L Chloride Level 96 L 101-111 mmol/L Carbon Dioxide Level 32 21-32 mmol/L Blood Urea Nitrogen 16 7-18 mg/dL Creatinine 1.1 0.5-1.3 mg/dL Glomerular Filtration Rate Calc 82 >90 mL/min Random Glucose 113 H 70-105 mg/dL Total Calcium 8.5 8.5-10.1 mg/dL Magnesium Level 2.00 1.80-2.40 mg/dL Total Bilirubin 1.1 H 0.2-1.0 mg/dL Aspartate Amino Transf (AST/SGOT) 55 H 10-37 U/L Alanine Aminotransferase (ALT/SGPT) 38 12-78 U/L Alkaline Phosphatase 51 50-136 U/L Total Protein 7.1 6.0-8.3 g/dL Albumin 3.3 L 3.5-5.0 g/dL Blood Gas Specimen Type Arterial Arterial Blood pH 7.412 7.350-7.450 Arterial Blood Partial Pressure CO2 40 35-48 mmHg Arterial Blood Partial Pressure O2 72.0 L 83.0-108.0 mmHg Arterial Blood HCO3 25.0 21.0-28.0 mmol/L Arterial Blood Oxygen Saturation 93.9 L 94.0-98.0 % Arterial Blood Base Excess 0.4 -2.0-3.0 mmol/L Hemoglobin (Blood Gas) 11.9 L 13.5-17.5 g/dL Sodium (Blood Gas) 137 136-145 MMOL/L Bedside Potassium (Blood Gas) 3.9 3.4-4.5 MMOL/L Bedside Chloride (Blood Gas) 100 98-107 MMOL/L Bedside Glucose (Blood Gas) 121 H 65-95 MG/DL Bedside Ionized Calcium (Blood Gas) 1.15 1.15-1.33 MMOL/L Bedside Lactic Acid (Blood Gas) 1.13 H 0.36-0.75 MMOL/L Blood Gas Temperature 37.0 35.5-37.0 CELSIUS Blood Gas Flow-by 2.00 0.00-15.00 L/min Blood Gas Vent Mode NC ROOM AIR FiO2 28.0 % Blood Gas Specimen Comment ALINEGEMMA Prothrombin Time 11.1 9.6-11.6 SEC Prothromb Time International Ratio 1.05 0.85-1.15 Activated Partial Thromboplast Time 25.6 L 26.3-35.5 SEC Ionized Calcium 1.12 L 1.15-1.33 MMOL/L Phosphorus Level 5.5 H 2.5-4.9 mg/dL Test 08/25/25 23:09 08/25/25 16:00 08/25/25 15:10 08/25/25 14:10 Range/Units Blood Gas Respiration Rate 4.0 min. Blood Gas Tidal Volume 800 ml Blood Gas PEEP 5 cm H2O Fibrinogen 210 180-350 mg/dL Kaolin Activated Coagulation Time 112 74-137 SEC Venous Blood pH 7.358 7.320-7.430 Venous Blood pCO2 at Patient Temp 43 38-54 Venous Blood pO2 at Patient Temp 37.7 23.0-48.0 mmHg Venous Blood HCO3 23.9 22.0-29.0 Venous Blood Base Excess -1.7 -2.0-3.0 Venous Blood Total Hemoglobin 12.5 L 13.5-17.5 Current Medications Medications (Trade) Dose Ordered Sig/Allison Route PRN Reason Start Time Stop Time Status Last Admin Dose Admin Acetaminophen (TYLenol 325MG TAB) 650 mg Q4H PRN PO Temp >38.3C(AFTER EXTUBATION) 08/25/25 13:30 09/24/25 13:29 Acetaminophen (TYLenol 325MG TAB) 650 mg Q6H PRN PO MILD PAIN (1-3) 08/24/25 13:30 08/25/25 13:24 DC Acetaminophen (TYLenol 325MG TAB) 650 mg Q6H PRN PO MILD PAIN (1-3) 08/25/25 13:30 09/24/25 13:29 Acetaminophen (TYLenol 650MG SUPPOSITORY) 650 mg Q4H PRN RC Temp >38.3C WHILE INTUBATED 08/25/25 13:30 09/24/25 13:29 Acetaminophen (acetaMINOPHEN 1,000MG/100ML) 1,000 mg Q6H6 IV 08/25/25 18:00 08/26/25 18:02 DC 08/26/25 12:03 1,000 MG Albumin Human 250 ml @ 0 mls/hr AD PRN IV IF HEMODYNAMICALLY UNSTABLE 08/25/25 13:30 08/25/25 17:17 DC 08/25/25 17:14 250 MLS/HR Aminocaproic Acid 33978 mg/Sodium Chloride 310 ml @ 25 mls/hr AD IV 08/25/25 13:30 08/25/25 13:19 DC Aminocaproic Acid 56963 mg/Sodium Chloride 480 ml @ 0 mls/hr AD PRN IV BLEEDING CONTROL 08/25/25 10:00 09/24/25 09:59 Aspirin (Aspirin 81mg Chew Tab) 81 mg DAILY PO 08/25/25 09:00 09/24/25 08:59 08/27/25 08:00 81 MG Atorvastatin Calcium (LIPItor 40MG) 40 mg HS PO 08/24/25 21:00 08/24/25 13:42 DC Atorvastatin Calcium (LIPItor 40MG) 80 mg HS PO 08/24/25 21:00 09/23/25 20:59 08/26/25 20:13 80 MG Calcium Gluconate 1 gm/Sodium Chloride 60 ml @ 200 mls/hr AD PRN IV HYPOCALCEMIA 08/25/25 13:30 09/24/25 13:29 08/26/25 13:29 200 MLS/HR Cefazolin Sodium (ANCEF 1 gm vial) 2 gm ONCALL IVP 08/25/25 07:00 08/25/25 17:31 DC 08/25/25 12:31 2 GM Cefazolin Sodium (Ancef) 2 gm Q8H IVPB 08/25/25 18:30 08/26/25 10:31 DC 08/26/25 11:19 2 GM Dexmedetomidine/ Sodium Chloride (PRECEdex 400MCG/ 100ML-NS) 400 mcg PROTOCOL IV 08/25/25 13:30 08/26/25 13:29 DC Dextrose (D50w) 50 ml AD PRN IV HYPOGLYCEMIA PROTOCOL 08/25/25 13:30 09/24/25 13:29 Docusate Sodium (COLace 100MG CAP) 100 mg BID PO 08/25/25 21:00 09/24/25 20:59 08/27/25 08:00 100 MG Enoxaparin Sodium (Lovenox) 30 mg DAILY SQ 08/28/25 09:00 09/27/25 08:59 Epinephrine HCl 10 mg/Sodium Chloride 250 ml @ 0 mls/hr AD PRN IV TITRATE 08/25/25 10:00 09/24/25 09:59 Epinephrine HCl 10 mg/Sodium Chloride 250 ml @ 0 mls/hr AD PRN IV POST-OP CARDIOVASCULAR ORDERS 08/25/25 13:30 08/25/25 13:18 DC EZETIMIBE (Zetia) 10 mg DAILY PO 08/25/25 09:00 09/24/25 08:59 08/27/25 08:00 10 MG Famotidine (Pepcid 20mg Vial) 20 mg BID IV 08/25/25 21:00 09/24/25 20:59 08/27/25 08:00 20 MG Famotidine (Pepcid 20mg Tab) 20 mg BID PO 08/24/25 21:00 08/24/25 13:16 DC Famotidine (Pepcid 20mg Tab) 20 mg BID PO 08/24/25 21:00 08/25/25 13:09 DC 08/24/25 21:22 20 MG Furosemide (LASix 20MG TAB) 20 mg Q12H PO 08/27/25 09:00 09/26/25 08:59 08/27/25 08:00 20 MG Furosemide (LASix 20MG VIAL) 20 mg Q12H IV 08/26/25 09:00 08/27/25 08:59 DC 08/26/25 20:13 20 MG Glucagon (Glucagon 1mg Kit) 1 mg AD PRN IM HYPOGLYCEMIA PROTOCOL 08/25/25 13:30 09/24/25 13:29 Heparin Sodium (Porcine) (HEParin 5,000 UNIT VIAL) *calculation based on ACTUAL B... AD PRN IV HEPARIN PROTOCOL 08/24/25 14:30 08/25/25 13:09 DC Heparin Sodium/ Dextrose 250 ml @ 0 mls/hr Q6H IV 08/24/25 14:30 08/25/25 13:09 DC 08/25/25 00:57 16.9 MLS/HR Insulin Human Regular (humuLIN R 100 UNIT/ML 3ML) INSULIN SLIDING SCAL... ACHS SQ 08/27/25 11:30 09/26/25 11:29 Insulin Human Regular 100 unit/ Sodium Chloride 100 ml @ 0 mls/hr AD IV 08/25/25 13:30 08/27/25 09:28 DC 08/25/25 17:21 1.5 MLS/HR Lactulose (Constulose 20gm/ 30ml Udcup) 20 gm BID PRN PO CONSTIPATION 08/25/25 13:30 09/24/25 13:29 Levothyroxine Sodium (SYNTHroid 50MCG TAB) 50 mcg DAILY@0630 PO 08/28/25 06:30 09/27/25 06:29 Lorazepam (AtiVAN) 0.5 mg BID PRN PO ANXIETY/AGITATION 08/24/25 16:30 08/25/25 13:09 DC 08/24/25 17:09 0.5 MG Magnesium Hydroxide (Milk Of Magnesium 30ml) 30 ml DAILY PRN PO CONSTIPATION 08/25/25 13:30 09/24/25 13:29 Magnesium Sulfate 50 ml @ 12.5 mls/hr AD PRN IV MAG LEVEL LESS THAN 2.0 08/25/25 13:30 09/24/25 13:29 08/26/25 05:08 12.5 MLS/HR Magnesium Sulfate 50 ml @ 0 mls/hr PROTOCOL IV 08/24/25 16:00 08/25/25 13:09 DC 08/24/25 16:53 100 MLS/HR Metoprolol Tartrate (loprESSOR) 25 mg BID PO 08/27/25 09:00 09/26/25 08:59 08/27/25 08:25 25 MG Morphine Sulfate (morPHINE 4MG SYG) 0.5 mg Q2H PRN IV MODERATE PAIN (4-6) 08/25/25 13:30 09/01/25 13:29 Morphine Sulfate (morPHINE 4MG SYG) 1 mg Q2H PRN IV SEVERE PAIN (7-10) 08/25/25 13:30 08/26/25 13:29 DC 08/25/25 19:27 1 MG Nitroglycerin (Nitro-Bid) 0.5 gm Q8H TD 08/24/25 13:30 08/24/25 15:35 DC Nitroglycerin (Nitroglycerin 1gm Oint) 0.5 inch Q8H TD 08/24/25 16:00 08/25/25 13:09 DC 08/25/25 09:55 0.5 INCH Nitroglycerin (Nitrostat) 0.4 mg AD PRN SL CHEST PAIN 08/24/25 13:30 08/25/25 13:09 DC Nitroglycerin/ Dextrose 0 ml @ 0 mls/hr AD IV 08/25/25 13:30 08/28/25 13:29 Norepinephrine 250 ml @ 0 mls/hr AD PRN IV TITRATE 08/25/25 11:00 09/24/25 09:59 Norepinephrine Bitartrate 250 ml @ 0 mls/hr AD PRN IV TITRATE 08/25/25 10:00 08/25/25 10:49 DC Norepinephrine Bitartrate 8 mg/ Dextrose 250 ml @ 0 mls/hr AD PRN IV POST-OP CARDIOVASCULAR ORDERS 08/25/25 13:30 08/25/25 13:17 DC Ondansetron HCl (zoFRAN 4MG INJ) 4 mg Q6H PRN IV NAUSEA/VOMITING 08/25/25 13:30 09/24/25 13:29 Ondansetron HCl (zoFRAN 4MG INJ) 4 mg Q6H PRN IVP NAUSEA/VOMITING 08/24/25 13:30 08/25/25 13:09 DC Potassium Phosphate 250 ml @ 42 mls/hr AD PRN IV LOW PHOS LEVEL 08/25/25 13:30 09/24/25 13:29 Potassium Chloride 100 ml @ 100 mls/hr AD PRN IV POTASSIUM PROTOCOL 08/24/25 16:00 08/25/25 13:09 DC Potassium Chloride 100 ml @ 100 mls/hr AD PRN IV HYPOKALEMIA 08/25/25 13:30 09/24/25 13:29 08/27/25 07:09 100 MLS/HR Potassium Chloride (K-Dur/Klor-Con 20meq) 20 meq AD PRN PO POTASSIUM PROTOCOL 08/24/25 16:00 08/25/25 13:09 DC Potassium Chloride (KCl 10% Elixir 20meq/15ml) 20 meq AD PRN PO POTASSIUM PROTOCOL 08/24/25 16:00 08/25/25 13:09 DC Propofol 100 ml @ 0 mls/hr AD PRN IV SEDATION 08/25/25 13:30 08/29/25 13:29 Sodium Bicarbonate (Sodium Bicarb 50meq 50ml Vial) 50 meq AD PRN IV OTHER[SEE DOSING INSTRUCTIONS] 08/25/25 13:30 08/28/25 13:29 Sodium Chloride 500 ml @ 0 mls/hr AD IV 08/25/25 13:30 09/24/25 13:29 08/25/25 22:11 3 MLS/HR Sodium Chloride 1,000 ml @ 10 mls/hr ONCE IV 08/25/25 13:30 08/26/25 13:29 DC 08/25/25 17:16 10 MLS/HR Sodium Chloride (NS Flush 10ml) 10 ml Q8H PRN IVP IV LINE FLUSH 08/25/25 13:30 09/24/25 13:29 Tramadol HCl (UltRAM) 25 mg Q6H PRN PO MODERATE PAIN (4-6) 08/25/25 13:30 08/30/25 13:29 Tramadol HCl (UltRAM) 50 mg Q6H PRN PO SEVERE PAIN (7-10) 08/25/25 13:30 08/30/25 13:29 08/27/25 08:02 50 MG DIAGNOSTICS / RADIOLOGY: [ ] ASSESSMENT: NSTEMI, POA Syncope on 08/23/2025, POA Status post cardiac catheterization with findings of severe multivessel coronary artery disease with 99% proximal LAD stenosis, by Dr. Mushtaq Julian, 08/24/2025 History of uncontrolled hyperlipidemia, POA Hypertension, POA Prediabetes, POA Nonobstructive carotid artery disease, POA Rule out obstructive sleep apnea, POA Obesity, POA Prior history of significant smoking, 35 pack year, quit smoking last year, POA PLAN: [place] line was already removed. Patient is still has a chest tube to water seal, which we will be removed today in the afternoon. Patient is off the insulin drip. Patient will be downgraded to PCCU. Case management consulted for IRU versus SNF versus home with the home health. We will continue to monitor patient in the meantime. A.m. labs. Patient underwent a cardiac catheterization on 08/24/[address] Mushtaq Hernandez demonstrating severe multivessel coronary artery disease including a 30% left main, 99% proximal to mid LAD stenosis, 80% mid LAD stenosis, 70% stenosis in diagonal 2, 50% proximal left circumflex and 70% mid left circumflex stenosis and 80% mid RCA stenosis and 70% distal RCA stenosis. Patient will continue with admission in cardiac telemetry floor under telemetry monitoring Findings of carotid ultrasound showed nonobstructive plaque in the left internal carotid artery with 20-30% stenosis, right ICA with 30-40% stenosis and no flow in the right vertebral artery which could indicate occlusion, recommendations by Cardiology to continue with antiplatelet therapy All labs will be repeated in the morning We will maintain potassium greater than four and magnesium greater than two Patient will benefit from sleep study as outpatient to assess for sleep apnea We will keep patient on GI prophylaxis with Pepcid ATTESTATION BY PHYSICIAN I have seen and examined the patient. I reviewed the documentation, medical decision making, and treatment plan as noted by the mid-level provider above. I agree with the findings and plan of care. DHARA MOSS MD, [facility]AT[facility]YNA [facility] Aug 27, 2025 13:44
[2025-08-27] MEDS ORDERED: PoTASSium chl 10% ELIXIR 20MEQ 20 MEQ/15 ML UDCUP PO PRN (14:00)
[2025-08-28] VITALS (10 sets, daily range): BP systolic 104–141; BP diastolic 60–79; PULSE 82–101; RESP 18–19; TEMP 97.6–99.1; O2SAT 94–97
--- NOTE | 2025-08-28 00:38 | PN ---
SUBJECTIVE: The patient is postop day #2 from a coronary artery bypass grafting. The patient has been doing well. He is off all pressors and is currently sitting up in a bedside chair. OBJECTIVE: VITAL SIGNS: His vital signs reveal a pulse of 109, respirations 24, blood pressure is 139/74, and oxygen saturation of 95% on nasal cannula oxygen. HEENT: Normocephalic, atraumatic. He has a right cervical central venous line. He has nasal cannula oxygen prongs under his nose. CHEST: His sternal wound was bandaged. His chest tubes are in place with 200 mL of total output over the last 24 hours. HEART: S1, S2 and tachycardic. LUNGS: Reveal mild rhonchi bilaterally, but unlabored at rest, on nasal cannula oxygen. ABDOMEN: Reveals mild to moderate obesity with positive bowel sounds. GENITOURINARY: He has a Guerra catheter draining his bladder. EXTREMITIES: He has DOROTEO stockings and SCDs on his lower extremities. ASSESSMENT AND PLAN: Status post coronary artery bypass grafting, postop day #2. Continue aspirin, Lasix, and cardiac rehab. We will discontinue his chest tube, central venous line, and Guerra catheter. Plan to transfer out of the ICU to telemetry floor. Postoperative acute pulmonary insufficiency secondary to thoracic surgery. Wean nasal cannula oxygen to room air, to maintain oxygen saturation greater than 90%. Encouraged incentive spirometry and ambulation. Hypercholesterolemia. Lipitor at bedtime, low cholesterol, cardiac diet. Deep venous thrombosis prophylaxis. Begin Lovenox 30 mg subcutaneous daily. Time spent 30 minutes. The patient is critically ill in the ICU. TID: [id number] RECEIPT: [id number]
[2025-08-28 04:22] LABS: IMMATURE GRANULOCYTE ABSOLUTE 0.06 K/uL (0-1); NUCLEATED RED BLOOD CELLS 0.0 % (0.0-0.19); PLATELET COUNT (AUTO) 237 K/uL (130-400); RED BLOOD CELL COUNT(AUTO) 3.11 MIL/uL (4.50-6.20); RED CELL DISTRIBUTION WIDTH 13.7 % (11.0-15.5); WHITE BLOOD COUNT (AUTO) 10.1 K/uL (4.8-10.8)
[2025-08-28 04:36] LABS: ASPARTATE AMINOTRANSFERASE 39.0 U/L (10-37); CREATININE 1.1 mg/dL (0.5-1.3); GLOMERULAR FILTR. RATE CALC 82.0 mL/min (>90); GLUCOSE,RANDOM 110.0 mg/dL (70-105); SODIUM SERUM 134.0 mmol/L (136-145); TOTAL PROTEIN, SERUM 6.8 g/dL (6.0-8.3); UREA NITROGEN, BLOOD 20.0 mg/dL (7-18)
[2025-08-28] MEDS: ENOXAPARIN SODIUM 30 MG/0.3 ML SQ SCH (08:40)
--- NOTE | 2025-08-28 08:52 | PN ---
[facility] CARDIOLOGY PROGRESS NOTE Date Patient Seen: Aug 28, 2025 Time of Visit: 08:49 Interval History: This is a 49-year-old [place] male with a past medical history of hypertension, hyperlipidemia on no prior medical therapy, pre-diabetes, prematur e coronary artery disease with 2 brothers having heart disease in her 40s and prior heavy tobacco use reporting 35 years of tobacco use of 2 packs per day but quit 1 year ago, who initially presented to [facility] on 08/23/2025 due to a syncopal episode and associated chest pain. He ruled in for a small non ST segment elevation CO with troponin levels of 0.044, 0.097 and 0.099 (251 at [facility] on 08/24/2025). He underwent a cardiac catheterization on 08/24/[address] Mushtaq Hernandez demonstrating severe multivessel coronary artery disease including a 30% left main, 99% proximal to mid LAD stenosis, 80% mid LAD stenosis, 70% stenosis in diagonal 2, 50% proximal left circumflex and 70% mid left circumflex stenosis and 80% mid RCA stenosis and 70% distal RCA stenosis. A pre-op 2D echocardiogram 08/25/2025 demonstrated an LVEF of 50-55% and normal valvular structures. Today is postop day #3 s/p on pump coronary artery bypass graft x 4 vessels (ARANA to the LAD (small ARANA), SVG to the diagonal 1, SVG to the OM2 and SVG to the PDA) and left atrial ligation with a 35 mm AtriCure clip on 08/25/[address] New Mondragon. The patient has had an uncomplicated course status post bypass without complicating CHF or atrial arrhythmia. He has been transferred to telemetry in his chest tube was removed yesterday. His chest x-ray this morning demonstrates a left pleural effusion and otherwise clear lung morrison. Physical Examination: GENERAL: No acute distress. HEAD: Normal with no signs of head trauma. EYES: PERRLA, EOMI, conjunctiva and sclera normal. NECK: Supple without JVD. There is no tenderness, lymphadenopathy, or masses. No thyromegaly. Normal carotid upstrokes without bruits. LUNGS: Diminished breath sounds at the bases bilaterally. Chest tubes were removed yesterday. HEART: Normal rate and rhythm. Normal S1 and S2 without murmurs, gallop or rub. Median sternotomy is healing well. VASC: Peripheral pulses +2 bilaterally. EXT: No clubbing, cyanosis or edema. NEURO: Awake, alert, and oriented x3. No focal neurological deficits noted. Laboratory: Hematology Labs: Test 08/28/25 04:09 Range/Units White Blood Count 10.1 4.8-10.8 K/uL Red Blood Count 3.11 L 4.50-6.20 MIL/uL Hemoglobin 9.8 L 14.0-18.0 g/dL Hematocrit 29.1 L 42-54 % Mean Corpuscular Volume 93.6 79-99 fL Mean Corpuscular Hemoglobin 31.5 27.0-33.0 pg Mean Corpuscular Hemoglobin Concent 33.7 32.0-36.0 g/dL Red Cell Distribution Width 13.7 11.0-15.5 % Platelet Count 237 130-400 K/uL Mean Platelet Volume 9.9 7.5-10.5 fL Immature Granulocyte % (Auto) 0.6 0-1 % Neutrophils (%) (Auto) 57.3 40.0-77.0 % Lymphocytes (%) (Auto) 29.0 21.0-51.0 % Monocytes (%) (Auto) 12.3 3.0-13.0 % Eosinophils (%) (Auto) 0.6 0.0-8.0 % Basophils (%) (Auto) 0.2 0.0-5.0 % Neutrophils # (Auto) 5.8 1.8-7.7 K/uL Lymphocytes # (Auto) 2.9 1.0-4.8 K/uL Monocytes # (Auto) 1.3 H 0.1-1.0 K/uL Eosinophils # (Auto) 0.06 0.00-0.70 K/uL Basophils # (Auto) 0.02 0.00-0.20 K/uL Absolute Immature Granulocyte (auto 0.06 0-1 K/uL Nucleated Red Blood Cells 0.0 0.0-0.19 % Chemistry Labs: Test 08/28/25 04:09 08/27/25 20:42 Range/Units Sodium Level 134 L 136-145 mmol/L Potassium Level 4.0 3.5-5.1 mmol/L Chloride Level 97 L 101-111 mmol/L Carbon Dioxide Level 32 21-32 mmol/L Blood Urea Nitrogen 20 H 7-18 mg/dL Creatinine 1.1 0.5-1.3 mg/dL Glomerular Filtration Rate Calc 82 >90 mL/min Random Glucose 110 H 70-105 mg/dL Total Calcium 8.1 L 8.5-10.1 mg/dL Magnesium Level 2.20 1.80-2.40 mg/dL Total Bilirubin 0.8 # 0.2-1.0 mg/dL Aspartate Amino Transf (AST/SGOT) 39 H 10-37 U/L Alanine Aminotransferase (ALT/SGPT) 27 # 12-78 U/L Alkaline Phosphatase 55 50-136 U/L Total Protein 6.8 6.0-8.3 g/dL Albumin 2.8 L 3.5-5.0 g/dL Whole Blood Glucose 132 H 70-110 MG/DL Diagnostics / Radiology: 2D echocardiogram 08/25/2025: Conclusion The cardiac chambers are normal in size. There is normal left ventricular wall thickness. No regional wall motion abnormalities noted. Left ventricular systolic function is low-normal, estimated LVEF is 50-55%. The left ventricular diastolic function is normal. Trace aortic regurgitation. Trace mitral regurgitation. Trace tricuspid regurgitation. PASP is normal. There is no pericardial effusion. Impression and Plan: Small non ST segment elevation CO with high sensitivity troponin 08/24/2025 at 251: Severe multivessel coronary artery disease by cardiac catheterization, with 99% proximal LAD stenosis 08/24/2025: CAD status post CABG x4 with ARANA-LAD, SVG-diagonal one, SVG-OM2, and SVG-PDA 08/25/2025 with AtriCure left atrial appendage clip: -continue usual postoperative care -high-intensity statin therapy to LDL cholesterol less than 55 -cautious low-dose beta-jem therapy given resting bradycardia in the 50s on arrival -dual antiplatelet therapy to complete one year. Start clopidogrel this AM -discharge planning for tomorrow a.m. Mixed dyslipidemia: -Lipid panel 08/24/2025 demonstrating total cholesterol of 216, triglycerides 157, HDL 38 and LDL of 183 -continue atorvastatin 80 mg daily -add ezetemibe 10mg po daily Hypertension: -blood pressure stable we will follow postoperatively Resting sinus bradycardia: -cautious beta-jem at low dose only New diagnosis of hypothyroidism with TSH of 9.27: -begin levothyroxine therapy 50 mcg p.o. daily Prediabetes: -hemoglobin A1c of 6.1 Nonobstructive carotid artery disease by carotid Doppler exam 08/23/2025 demonstrating: -Bilateral carotid Doppler exam 08/23/2025 demonstrated nonobstructive plaque in the left internal carotid artery of 20-30% -Right internal carotid artery with 30-40% stenosis and no flow in the right vertebral artery may reflect occlusion -continue plans for antiplatelet therapy Probable sleep apnea: -Will need outpatient follow up and sleep study JAMES BARBOSA MD Aug 28, 2025 08:52
--- NOTE | 2025-08-28 12:41 | PN ---
[facility] PROGRESS NOTE Date of Service: Aug 28, 2025 Time of Service: 12:[address] Moss SUBJECTIVE: [08/24 This is a 49-year-old male with underlying history of obesity, hyperlipidemia who presented as a transfer from [facility] for evaluation by cardiovascular surgery for coronary artery bypass grafting. Patient and family reports that he initially presented to [facility] on 08/23/2025 when he had presented with chest pain and syncopal episode. Patient woke up close to 3:00 a.m. on 08/23/2025 with complaints of dyspnea and chest pain. He sat at the edge and had a syncopal episode. reported doing about three chest compressions and patient regained consciousness. Patient on presentation to [facility] ER was noted to have mild elevation of troponin. CT head without contrast showed no acute intracranial abnormality. Patient was admitted with NSTEMI and underwent cardiac catheterization by Dr. Mushtaq Hernandez today was found to have severe multivessel coronary artery disease with findings of 99% proximal to mid LAD stenosis, 80% mid LAD stenosis, 70% stenosis in diagonal 2, 50% proximal left circumflex and 70% mid left circumflex stenosis and 80% mid RCA stenosis and 70% distal RCA stenosis. Patient was transferred to [facility] for evaluation for coronary artery bypass grafting. Patient on bedside examination denies any active chest pain, chest pressure, dizziness, headache, focal weakness of upper or lower extremities. Patient will be admitted under hospitalist service and will be monitored closely. 08/25 patient was seen by nurse practitioner physician during rounding in room 224 Patient is pending CABG today in the afternoon. Continue NPO. Patient underwent a cardiac catheterization on 08/24/[address] Mushtaq Hernandez demonstrating severe multivessel coronary artery disease including a 30% left main, 99% proximal to mid LAD stenosis, 80% mid LAD stenosis, 70% stenosis in diagonal 2, 50% proximal left circumflex and 70% mid left circumflex stenosis and 80% mid RCA stenosis and 70% distal RCA stenosis. Today CABG will be performed and then patient will be transferred to ICU for closer observation after surgery. We will continue to monitor patient in the meantime. A.m. labs 08/26/25 patient was seen by nurse practitioner and physician during rounding in room 216. Patient is s/p CABG with a on 08/25/2025. Patient swine line to be room today. Chest tube continues to be connected to water- seal. Patient continues to be on insulin drip. As per cardiology continue postop care per CV surgeon and Cardiology follow-up. Patient to be started on antiplatelet therapy with the addition of clopidogrel once chest tubes are out. Continue high-intensity statin therapy with atorvastatin 80 mg daily and ezetemibe 10 mg p.o. daily. Patient will need outpatient follow-up and sleep study. We will continue to monitor patient in the meantime. A.m. labs 08/27/25 patient was seen by nurse practitioner and physician during rounding room 216. Torrey line was already removed. Patient is still has a chest tube to water seal, which we will be removed today in the afternoon. Patient is off the insulin drip. Patient will be downgraded to PCCU. Case management consulted for IRU versus SNF versus home with the home health. We will continue to monitor patient in the meantime. A.m. labs. 08/28/25 patient was seen by nurse practitioner and physician during rounding. Patient is s/p CABG 08/25/2025. Patient was downgraded to PCCU. Patient has been walking with the physical therapy. As per patient request he would like to be discharged home with the home health and physical therapy outpatient. Case management is working on disposition. RN was instructed to contact supervisor inventory merchandising and cardiovascular surgeon for clearance. We will continue to monitor patient in the meantime. A.m. labs] REVIEW OF SYSTEMS CONSTITUTIONAL: Denies fevers, chills, or night sweats. No unintentional weight loss reported. NEUROLOGICAL: Denies headache, amaurosis fugax, motor weakness, sensory deficit, vertigo/spinning sensation, gait abnormalities, or tremors. ENT: No hearing loss, otalgia, otorrhea, rhinitis, rhinorrhea, hoarseness, or sore throat. CARDIOVASCULAR: S/p CABG 08/25/2025 PULMONARY: Denies any shortness of breath, cough, phlegm/sputum, hemoptysis, pleuritic chest pain. SLEEP: Denies morning headaches, daytime somnolence or napping. Denies difficulty falling asleep, staying asleep, waking from sleep. Denies knowledge of snoring. GASTROINTESTINAL: Denies any type of dysphagia to either liquids or solids. Denies nausea, vomiting, pyrosis, early satiety, abdominal pain, diarrhea, constipation, or changes in stool consistency or caliber. Denies coffee-ground emesis, hematemesis, hematochezia, or melanotic stools. GENITOURINARY: Denies frequency, urgency, nocturia, hematuria or incontinence (Storage/Irritative symptoms.) Low urinary stream, straining to void, urinary intermittency or hesitancy, splitting of the voiding stream, terminal dribbling. ENDOCRINOLOGIC: Denies polyuria, polydipsia, polyphagia or heat/cold intolerances. HEMATOLOGIC: Denies thrombophilia/previous clots, or coagulopathy/bleeding disorders. ONCOLOGIC: Denies personal history of malignancy. DERMATOLOGIC: Denies rashes or pruritus. PSYCHIATRIC: Denies any suicidal or homicidal ideation. Denies hallucinations. PHYSICAL EXAM GENERAL APPEARANCE: The patient is awake, alert, and oriented, in no acute cardiopulmonary distress. NEUROLOGICAL: Cranial nerves II-XII grossly intact. Motor is 5/5 in bilateral upper and lower extremities proximal to distal. No sensory deficits. HEENT: Face is symmetric. Pupils are equal and reactive. Extraocular movements are intact. NECK: Supple. No JVD. No thyromegaly. No submental, submandibular, pre- /postauricular, occipital or supraclavicular lymphadenopathy. CHEST: Normal chest expansion. No Telemetry. LUNGS: Absence of any rales, rhonchi or any wheezing. CARDIOVASCULAR: Regular. S1 and S2 normal. No appreciable rubs, murmurs or gallops. ABDOMEN: Soft, nontender, and nondistended. There is no rebound, voluntary guarding, or rigidity. : Deferred. No Guerra. EXTREMITIES: Non-edematous and not cyanotic. No clubbing. Good capillary refill. SKIN: No skin breakdown. Vital Signs (last 8hr) Date Time Temp Pulse Resp B/P (MAP) Pulse Ox O2 Delivery O2 Flow Rate FiO2 08/28/25 08:30 96 Room Air* 0 21 08/28/25 08:16 97.9 82 18 104/60 98 Nasal Cannula 2.0 08/28/25 06:28 92 19 N/Cannula Low lpm 2.0 28 LABS: Laboratory: Test 08/28/25 11:59 08/28/25 04:09 Range/Units Whole Blood Glucose 101 70-110 MG/DL White Blood Count 10.1 4.8-10.8 K/uL Red Blood Count 3.11 L 4.50-6.20 MIL/uL Hemoglobin 9.8 L 14.0-18.0 g/dL Hematocrit 29.1 L 42-54 % Mean Corpuscular Volume 93.6 79-99 fL Mean Corpuscular Hemoglobin 31.5 27.0-33.0 pg Mean Corpuscular Hemoglobin Concent 33.7 32.0-36.0 g/dL Red Cell Distribution Width 13.7 11.0-15.5 % Platelet Count 237 130-400 K/uL Mean Platelet Volume 9.9 7.5-10.5 fL Immature Granulocyte % (Auto) 0.6 0-1 % Neutrophils (%) (Auto) 57.3 40.0-77.0 % Lymphocytes (%) (Auto) 29.0 21.0-51.0 % Monocytes (%) (Auto) 12.3 3.0-13.0 % Eosinophils (%) (Auto) 0.6 0.0-8.0 % Basophils (%) (Auto) 0.2 0.0-5.0 % Neutrophils # (Auto) 5.8 1.8-7.7 K/uL Lymphocytes # (Auto) 2.9 1.0-4.8 K/uL Monocytes # (Auto) 1.3 H 0.1-1.0 K/uL Eosinophils # (Auto) 0.06 0.00-0.70 K/uL Basophils # (Auto) 0.02 0.00-0.20 K/uL Absolute Immature Granulocyte (auto 0.06 0-1 K/uL Nucleated Red Blood Cells 0.0 0.0-0.19 % Sodium Level 134 L 136-145 mmol/L Potassium Level 4.0 3.5-5.1 mmol/L Chloride Level 97 L 101-111 mmol/L Carbon Dioxide Level 32 21-32 mmol/L Blood Urea Nitrogen 20 H 7-18 mg/dL Creatinine 1.1 0.5-1.3 mg/dL Glomerular Filtration Rate Calc 82 >90 mL/min Random Glucose 110 H 70-105 mg/dL Total Calcium 8.1 L 8.5-10.1 mg/dL Magnesium Level 2.20 1.80-2.40 mg/dL Total Bilirubin 0.8 # 0.2-1.0 mg/dL Aspartate Amino Transf (AST/SGOT) 39 H 10-37 U/L Alanine Aminotransferase (ALT/SGPT) 27 # 12-78 U/L Alkaline Phosphatase 55 50-136 U/L Total Protein 6.8 6.0-8.3 g/dL Albumin 2.8 L 3.5-5.0 g/dL Current Medications Medications (Trade) Dose Ordered Sig/Allison Route PRN Reason Start Time Stop Time Status Last Admin Dose Admin Acetaminophen (TYLenol 325MG TAB) 650 mg Q4H PRN PO Temp >38.3C(AFTER EXTUBATION) 08/25/25 13:30 09/24/25 13:29 Acetaminophen (TYLenol 325MG TAB) 650 mg Q6H PRN PO MILD PAIN (1-3) 08/24/25 13:30 08/25/25 13:24 DC Acetaminophen (TYLenol 325MG TAB) 650 mg Q6H PRN PO MILD PAIN (1-3) 08/25/25 13:30 09/24/25 13:29 Acetaminophen (TYLenol 650MG SUPPOSITORY) 650 mg Q4H PRN RC Temp >38.3C WHILE INTUBATED 08/25/25 13:30 09/24/25 13:29 Acetaminophen (acetaMINOPHEN 1,000MG/100ML) 1,000 mg Q6H6 IV 08/25/25 18:00 08/26/25 18:02 DC 08/26/25 12:03 1,000 MG Albumin Human 250 ml @ 0 mls/hr AD PRN IV IF HEMODYNAMICALLY UNSTABLE 08/25/25 13:30 08/25/25 17:17 DC 08/25/25 17:14 250 MLS/HR Aminocaproic Acid 71095 mg/Sodium Chloride 310 ml @ 25 mls/hr AD IV 08/25/25 13:30 08/25/25 13:19 DC Aminocaproic Acid 04725 mg/Sodium Chloride 480 ml @ 0 mls/hr AD PRN IV BLEEDING CONTROL 08/25/25 10:00 08/27/25 14:00 DC Aspirin (Aspirin 81mg Chew Tab) 81 mg DAILY PO 08/25/25 09:00 09/24/25 08:59 08/28/25 08:41 81 MG Atorvastatin Calcium (LIPItor 40MG) 40 mg HS PO 08/24/25 21:00 08/24/25 13:42 DC Atorvastatin Calcium (LIPItor 40MG) 80 mg HS PO 08/24/25 21:00 09/23/25 20:59 08/27/25 21:27 80 MG Calcium Gluconate 1 gm/Sodium Chloride 60 ml @ 200 mls/hr AD PRN IV HYPOCALCEMIA 08/25/25 13:30 09/24/25 13:29 08/26/25 13:29 200 MLS/HR Cefazolin Sodium (ANCEF 1 gm vial) 2 gm ONCALL IVP 08/25/25 07:00 08/25/25 17:31 DC 08/25/25 12:31 2 GM Cefazolin Sodium (Ancef) 2 gm Q8H IVPB 08/25/25 18:30 08/26/25 10:31 DC 08/26/25 11:19 2 GM Clopidogrel Bisulfate (plaVIX 75MG) 75 mg DAILY PO 08/28/25 09:00 09/27/25 08:59 08/28/25 10:05 75 MG Dexmedetomidine/ Sodium Chloride (PRECEdex 400MCG/ 100ML-NS) 400 mcg PROTOCOL IV 08/25/25 13:30 08/26/25 13:29 DC Dextrose (D50w) 50 ml AD PRN IV HYPOGLYCEMIA PROTOCOL 08/25/25 13:30 09/24/25 13:29 Docusate Sodium (COLace 100MG CAP) 100 mg BID PO 08/25/25 21:00 09/24/25 20:59 08/28/25 08:40 100 MG Enoxaparin Sodium (Lovenox) 30 mg DAILY SQ 08/28/25 09:00 09/27/25 08:59 08/28/25 08:40 30 MG Epinephrine HCl 10 mg/Sodium Chloride 250 ml @ 0 mls/hr AD PRN IV TITRATE 08/25/25 10:00 09/24/25 09:59 Epinephrine HCl 10 mg/Sodium Chloride 250 ml @ 0 mls/hr AD PRN IV POST-OP CARDIOVASCULAR ORDERS 08/25/25 13:30 08/25/25 13:18 DC EZETIMIBE (Zetia) 10 mg DAILY PO 08/25/25 09:00 09/24/25 08:59 08/28/25 08:41 10 MG Famotidine (Pepcid 20mg Vial) 20 mg BID IV 08/25/25 21:00 09/24/25 20:59 08/28/25 08:40 20 MG Famotidine (Pepcid 20mg Tab) 20 mg BID PO 08/24/25 21:00 08/24/25 13:16 DC Famotidine (Pepcid 20mg Tab) 20 mg BID PO 08/24/25 21:00 08/25/25 13:09 DC 08/24/25 21:22 20 MG Furosemide (LASix 20MG TAB) 20 mg Q12H PO 08/27/25 09:00 09/26/25 08:59 08/28/25 08:41 20 MG Furosemide (LASix 20MG VIAL) 20 mg Q12H IV 08/26/25 09:00 08/27/25 08:59 DC 08/26/25 20:13 20 MG Glucagon (Glucagon 1mg Kit) 1 mg AD PRN IM HYPOGLYCEMIA PROTOCOL 08/25/25 13:30 09/24/25 13:29 Heparin Sodium (Porcine) (HEParin 5,000 UNIT VIAL) *calculation based on ACTUAL B... AD PRN IV HEPARIN PROTOCOL 08/24/25 14:30 08/25/25 13:09 DC Heparin Sodium/ Dextrose 250 ml @ 0 mls/hr Q6H IV 08/24/25 14:30 08/25/25 13:09 DC 08/25/25 00:57 16.9 MLS/HR Insulin Human Regular (humuLIN R 100 UNIT/ML 3ML) INSULIN SLIDING SCAL... ACHS SQ 08/27/25 11:30 09/26/25 11:29 Insulin Human Regular 100 unit/ Sodium Chloride 100 ml @ 0 mls/hr AD IV 08/25/25 13:30 08/27/25 09:28 DC 08/25/25 17:21 1.5 MLS/HR Lactulose (Constulose 20gm/ 30ml Udcup) 20 gm BID PRN PO CONSTIPATION 08/25/25 13:30 09/24/25 13:29 Levothyroxine Sodium (SYNTHroid 50MCG TAB) 50 mcg DAILY@0630 PO 08/28/25 06:30 09/27/25 06:29 08/28/25 06:53 50 MCG Lorazepam (AtiVAN) 0.5 mg BID PRN PO ANXIETY/AGITATION 08/24/25 16:30 08/25/25 13:09 DC 08/24/25 17:09 0.5 MG Magnesium Hydroxide (Milk Of Magnesium 30ml) 30 ml DAILY PRN PO CONSTIPATION 08/25/25 13:30 09/24/25 13:29 Magnesium Sulfate 50 ml @ 12.5 mls/hr AD PRN IV MAG LEVEL LESS THAN 2.0 08/25/25 13:30 09/24/25 13:29 08/26/25 05:08 12.5 MLS/HR Magnesium Sulfate 50 ml @ 0 mls/hr PROTOCOL IV 08/24/25 16:00 08/25/25 13:09 DC 08/24/25 16:53 100 MLS/HR Metoprolol Tartrate (loprESSOR) 25 mg BID PO 08/27/25 09:00 09/26/25 08:59 08/28/25 08:41 25 MG Morphine Sulfate (morPHINE 2MG SYG) 0.5 mg Q2H PRN IV MODERATE PAIN (4-6) 08/28/25 08:30 09/01/25 13:29 Morphine Sulfate (morPHINE 4MG SYG) 0.5 mg Q2H PRN IV MODERATE PAIN (4-6) 08/25/25 13:30 08/28/25 08:06 DC Morphine Sulfate (morPHINE 4MG SYG) 1 mg Q2H PRN IV SEVERE PAIN (7-10) 08/25/25 13:30 08/26/25 13:29 DC 08/25/25 19:27 1 MG Nitroglycerin (Nitro-Bid) 0.5 gm Q8H TD 08/24/25 13:30 08/24/25 15:35 DC Nitroglycerin (Nitroglycerin 1gm Oint) 0.5 inch Q8H TD 08/24/25 16:00 08/25/25 13:09 DC 08/25/25 09:55 0.5 INCH Nitroglycerin (Nitrostat) 0.4 mg AD PRN SL CHEST PAIN 08/24/25 13:30 08/25/25 13:09 DC Nitroglycerin/ Dextrose 0 ml @ 0 mls/hr AD IV 08/25/25 13:30 08/28/25 13:29 Norepinephrine 250 ml @ 0 mls/hr AD PRN IV TITRATE 08/25/25 11:00 09/24/25 09:59 Norepinephrine Bitartrate 250 ml @ 0 mls/hr AD PRN IV TITRATE 08/25/25 10:00 08/25/25 10:49 DC Norepinephrine Bitartrate 8 mg/ Dextrose 250 ml @ 0 mls/hr AD PRN IV POST-OP CARDIOVASCULAR ORDERS 08/25/25 13:30 08/25/25 13:17 DC Ondansetron HCl (zoFRAN 4MG INJ) 4 mg Q6H PRN IV NAUSEA/VOMITING 08/25/25 13:30 09/24/25 13:29 Ondansetron HCl (zoFRAN 4MG INJ) 4 mg Q6H PRN IVP NAUSEA/VOMITING 08/24/25 13:30 08/25/25 13:09 DC Potassium Phosphate 250 ml @ 42 mls/hr AD PRN IV LOW PHOS LEVEL 08/25/25 13:30 09/24/25 13:29 Potassium Chloride 100 ml @ 100 mls/hr AD PRN IV POTASSIUM PROTOCOL 08/24/25 16:00 08/25/25 13:09 DC Potassium Chloride 100 ml @ 100 mls/hr AD PRN IV HYPOKALEMIA 08/25/25 13:30 08/27/25 14:00 DC 08/27/25 07:09 100 MLS/HR Potassium Chloride (K-Dur/Klor-Con 20meq) 20 meq AD PRN PO POTASSIUM PROTOCOL 08/24/25 16:00 08/25/25 13:09 DC Potassium Chloride (K-Dur/Klor-Con 20meq) 20 meq AD PRN PO POTASSIUM PROTOCOL 08/27/25 14:00 09/26/25 13:59 Potassium Chloride (KCl 10% Elixir 20meq/15ml) 20 meq AD PRN PO POTASSIUM PROTOCOL 08/24/25 16:00 08/25/25 13:09 DC Potassium Chloride (KCl 10% Elixir 20meq/15ml) 20 meq AD PRN PO POTASSIUM PROTOCOL 08/27/25 14:00 09/26/25 13:59 Propofol 100 ml @ 0 mls/hr AD PRN IV SEDATION 08/25/25 13:30 08/27/25 14:00 DC Sodium Bicarbonate (Sodium Bicarb 50meq 50ml Vial) 50 meq AD PRN IV OTHER[SEE DOSING INSTRUCTIONS] 08/25/25 13:30 08/28/25 13:29 Sodium Chloride 500 ml @ 0 mls/hr AD IV 08/25/25 13:30 09/24/25 13:29 08/25/25 22:11 3 MLS/HR Sodium Chloride 1,000 ml @ 10 mls/hr ONCE IV 08/25/25 13:30 08/26/25 13:29 DC 08/25/25 17:16 10 MLS/HR Sodium Chloride (NS Flush 10ml) 10 ml Q8H PRN IVP IV LINE FLUSH 08/25/25 13:30 09/24/25 13:29 Tramadol HCl (UltRAM) 25 mg Q6H PRN PO MODERATE PAIN (4-6) 08/25/25 13:30 08/30/25 13:29 Tramadol HCl (UltRAM) 50 mg Q6H PRN PO SEVERE PAIN (7-10) 08/25/25 13:30 08/30/25 13:29 08/28/25 10:05 50 MG DIAGNOSTICS / RADIOLOGY: [ ] ASSESSMENT: NSTEMI, POA Syncope on 08/23/2025, POA Status post cardiac catheterization with findings of severe multivessel coronary artery disease with 99% proximal LAD stenosis, by Dr. Mushtaq Julian, 08/24/2025 History of uncontrolled hyperlipidemia, POA Hypertension, POA Prediabetes, POA Nonobstructive carotid artery disease, POA Rule out obstructive sleep apnea, POA Obesity, POA Prior history of significant smoking, 35 pack year, quit smoking last year, POA PLAN: Patient is s/p CABG 08/25/2025. Patient was downgraded to PCCU. Patient has been walking with the physical therapy. As per patient request he would like to be discharged home with the home health and physical therapy outpatient. Case management is working on disposition. RN was instructed to contact supervisor inventory merchandising and cardiovascular surgeon for clearance. We will continue to monitor patient in the meantime. A.m. labs] Patient underwent a cardiac catheterization on 08/24/[address] Mushtaq Hernandez demonstrating severe multivessel coronary artery disease including a 30% left main, 99% proximal to mid LAD stenosis, 80% mid LAD stenosis, 70% stenosis in diagonal 2, 50% proximal left circumflex and 70% mid left circumflex stenosis and 80% mid RCA stenosis and 70% distal RCA stenosis. Patient will continue with admission in cardiac telemetry floor under telemetry monitoring Findings of carotid ultrasound showed nonobstructive plaque in the left internal carotid artery with 20-30% stenosis, right ICA with 30-40% stenosis and no flow in the right vertebral artery which could indicate occlusion, recommendations by Cardiology to continue with antiplatelet therapy All labs will be repeated in the morning We will maintain potassium greater than four and magnesium greater than two Patient will benefit from sleep study as outpatient to assess for sleep apnea We will keep patient on GI prophylaxis with Pepcid ATTESTATION BY PHYSICIAN I have seen and examined the patient. I reviewed the documentation, medical decision making, and treatment plan as noted by the mid-level provider above. I agree with the findings and plan of care. DHARA MOSS MD, [facility]AT[facility]YNA B [facility] Aug 28, 2025 12:41
--- NOTE | 2025-08-28 14:21 | HMCIMG ---
EXAM: CR Chest, 1 views. CLINICAL HISTORY: Cough. COMPARISON: None provided. FINDINGS: Right sided jugular sheath is seen with distal tip in the superior vena cava. Patch of opacity is seen in left midzone and right lower zone. No pleural effusion or pneumothorax. The cardiomediastinal silhouette is within normal limits. No acute osseous abnormality. IMPRESSION: Central venous line is seen with distal tip in the superior vena cava. Patch of opacity is seen in left midzone and right lower zone. /Udall
--- NOTE | 2025-08-28 16:30 | NUR ---
DCP HOME Spoke to pt regarding discharge plan. Pt refuses to go to rehab and states he will go home once cleared.
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
[2025-08-28] MEDS: FAMOTIDINE 20MG TAB PO SCH (20:28)
[2025-08-29 03:36] VITALS: BP 104/52; PULSE 90; RESP 16; TEMP 98.4
[2025-08-29] MEDS: LACTULOSE 20 GM/30 ML UDCUP PO PRN (05:04)
[2025-08-29 05:28] LABS: IMMATURE GRANULOCYTE ABSOLUTE 0.07 K/uL (0-1); NUCLEATED RED BLOOD CELLS 0.0 % (0.0-0.19); PLATELET COUNT (AUTO) 293 K/uL (130-400); RED BLOOD CELL COUNT(AUTO) 3.10 MIL/uL (4.50-6.20); RED CELL DISTRIBUTION WIDTH 13.4 % (11.0-15.5); WHITE BLOOD COUNT (AUTO) 8.6 K/uL (4.8-10.8)
[2025-08-29 05:55] LABS: ASPARTATE AMINOTRANSFERASE 35.0 U/L (10-37); CREATININE 1.0 mg/dL (0.5-1.3); GLOMERULAR FILTR. RATE CALC 92.0 mL/min (>90); GLUCOSE,RANDOM 102.0 mg/dL (70-105); SODIUM SERUM 133.0 mmol/L (136-145); TOTAL PROTEIN, SERUM 7.1 g/dL (6.0-8.3); UREA NITROGEN, BLOOD 21.0 mg/dL (7-18)
[2025-08-29] MEDS: PoTASSium chloRIDE 20MEQ ER 20 MEQ ERTAB PO PRN (06:25)
--- NOTE | 2025-08-29 06:28 | HMCIMG ---
EXAM: CR Chest, 1 View. CLINICAL HISTORY: s/p CABG COMPARISON: 08/27/2025 FINDINGS: Status post CABG changes. Interval removal of the right IJ line. LUNGS: Essentially stable left basilar opacity. PLEURAL SPACES: No pneumothorax. Stable small left pleural effusion. MEDIASTINUM: The cardiac size is stable. Sternal sutures present. BONES: No aggressive appearing osseous lesion seen. IMPRESSION: Stable small left pleural effusion with adjacent left basilar atelectasis. Interval removal of the right IJ line. /Jackson
[2025-08-29 06:49] VITALS: PULSE 86; RESP 18; O2SAT 96
[2025-08-29 07:00] VITALS: BP 119/65; PULSE 82; RESP 16; TEMP 98.7
[2025-08-29 08:45] VITALS: O2SAT 98
--- NOTE | 2025-08-29 09:34 | PN ---
[facility] Cardiology Progress Note CARDIOLOGY PROGRESS NOTE AUGUST 29, 2025 Problems: 1. Non ST-elevation myocardial infarction 2. Multivessel CAD preop ejection fraction of 50-55% status post aortocoronary bypass graft surgery with a ARANA graft to the LAD saphenous graft to the 1st diagonal artery saphenous graft to the 2nd obtuse marginal artery saphenous graft to the PDA and clipping of the left atrial appendage Number three dyslipidemia 4. Hypertension 5. Newly diagnosed hypothyroidism 6. Prediabetes 7. Nonobstructive carotid artery disease Blood pressure running 120 systolic heart rate in the 80s the patient is afebrile. White count 8.6 hemoglobin 9.9 platelet count [id number]. Potassium 3.7 BUN 21 creatinine 1.0. The patient continues on aspirin atorvastatin clopidogrel Lovenox for DVT prophylaxis acetamide insulin scale levothyroxine metoprolol tartrate and potassium protocol. Been ambulating well. He is up in the chair. He has good breath sounds bilaterally. Telemetry shows sinus rhythm. Plans are for discharge home today. Instructions and medications has been reviewed. JEFF EAST MD Aug 29, 2025 09:34
[2025-08-29] MEDS ORDERED: ASPI-1005 PO (09:40)
[2025-08-29] MEDS ORDERED: ATOR40TA69 PO (09:40)
[2025-08-29] MEDS ORDERED: METO25 PO (09:40)
[2025-08-29] MEDS ORDERED: FURO20TA6 PO (09:40)
[2025-08-29] MEDS ORDERED: LEVO50TA4 PO (09:40)
[2025-08-29] MEDS ORDERED: CLOP-31 PO (09:40)
[2025-08-29] MEDS ORDERED: EZET10TA81 PO (09:40)
[2025-08-29] MEDS ORDERED: TRAM50TA4 PO (09:40)
--- NOTE | 2025-08-29 10:04 | DS ---
Discharge Summary Hospital Course Summary: DATE OF ADMISSION:[08/24/2025] DATE OF DISCHARGE:[08/29/2025] DISPOSITION:[Home] CONDITION:[Medically cleared] CONSULTANTS:[[facility] telephone order clerk room service, cardiovascular surgeon] FOLLOW UP APPOINTMENTS: PCP 2 to 3 days. Ground Instructor Advanced within one week. Cardiovascular surgeon within one week. [] PROCEDURES:[CABG 08/25/25] IMAGING: report attached to summary MICROBIOLOGY: report attached to summary ACTIVITY:[ independent] HOME MEDICATIONS: see [facility] NEW MEDICATIONS:[] Aspirin, atorvastatin, Plavix, Zetia, furosemide, levothyroxine, metoprolol, tramadol EMERGENCY INSTRUCTIONS: The patient was instructed to present to the nearest Emergency departmentr or call 911 once their symptoms will return or worsen Loom Setter Fourdrinier(s): Patient is 49 years old male with underlying history of obesity,hyperlipidemia who presented as a transfer from [facility] for evaluation by cardiovascular surgery for coronary artery bypass grafting. Patient and family reported that he initially presented to [facility] on 08/23/2025 when he had presented with chest pain and syncopal episode. Patient woke up close to 3:00 a.m. on 08/23/2025 with complaints of dyspnea and chest pain. He sat at the edge and had a syncopal episode. reported doing about three chest compressions and patient regained consciousness. Patient on presentation to [facility] ER was noted to have mild elevation of troponin. CT head without contrast showed no acute intracranial abnormality. Patient was admitted with NSTEMI and underwent cardiac catheterization by Dr. Mushtaq Hernandez 08/24/25 was found to have severe multivessel coronary artery disease with findings of 99% proximal to mid LAD stenosis, 80% mid LAD stenosis, 70% stenosis in diagonal 2, 50% proximal left circumflex and 70% mid left circumflex stenosis and 80% mid RCA stenosis and 70% distal RCA stenosis. Patient was transferred to [facility] for evaluation for coronary artery bypass grafting. During hospitalization patient underwent CABG on 08/25/2025 with tawnya Boss. Physical therapy evaluated the patient and recommended rehab. As per patient and family members at the bedside patient is refusing rehab IRU for SNF. Patient stated that he would like to go home. Patient was also evaluated by the telephone order clerk room service and was cleared to be discharged home. Continue atorvastatin, Plavix, metoprolol. Patient was also evaluated by cardiovascular surgeon patient was as well cleared to be discharged. Follow up with PCP in 2 to 3 days. Follow up with telephone order clerk room service within one week. Follow up with cardiovascular surgeon within one week. Procedure(s): REVIEW OF SYSTEMS CONSTITUTIONAL: Denies fevers, chills, or night sweats. No unintentional weight loss reported. NEUROLOGICAL: Denies headache, amaurosis fugax, motor weakness, sensory deficit, vertigo/spinning sensation, gait abnormalities, or tremors. ENT: No hearing loss, otalgia, otorrhea, rhinitis, rhinorrhea, hoarseness, or sore throat. CARDIOVASCULAR: S/p CABG 08/25/2025 PULMONARY: Denies any shortness of breath, cough, phlegm/sputum, hemoptysis, pleuritic chest pain. SLEEP: Denies morning headaches, daytime somnolence or napping. Denies difficulty falling asleep, staying asleep, waking from sleep. Denies knowledge of snoring. GASTROINTESTINAL: Denies any type of dysphagia to either liquids or solids. Denies nausea, vomiting, pyrosis, early satiety, abdominal pain, diarrhea, constipation, or changes in stool consistency or caliber. Denies coffee-ground emesis, hematemesis, hematochezia, or melanotic stools. GENITOURINARY: Denies frequency, urgency, nocturia, hematuria or incontinence (Storage/Irritative symptoms.) Low urinary stream, straining to void, urinary intermittency or hesitancy, splitting of the voiding stream, terminal dribbling. ENDOCRINOLOGIC: Denies polyuria, polydipsia, polyphagia or heat/cold intolerances. HEMATOLOGIC: Denies thrombophilia/previous clots, or coagulopathy/bleeding disorders. ONCOLOGIC: Denies personal history of malignancy. DERMATOLOGIC: Denies rashes or pruritus. PSYCHIATRIC: Denies any suicidal or homicidal ideation. Denies hallucinations. PHYSICAL EXAM GENERAL APPEARANCE: The patient is awake, alert, and oriented, in no acute cardiopulmonary distress. NEUROLOGICAL: Cranial nerves II-XII grossly intact. Motor is 5/5 in bilateral upper and lower extremities proximal to distal. No sensory deficits. HEENT: Face is symmetric. Pupils are equal and reactive. Extraocular movements are intact. NECK: Supple. No JVD. No thyromegaly. No submental, submandibular, pre- /postauricular, occipital or supraclavicular lymphadenopathy. CHEST: Normal chest expansion. No Telemetry. LUNGS: Absence of any rales, rhonchi or any wheezing. CARDIOVASCULAR: Regular. S1 and S2 normal. No appreciable rubs, murmurs or gallops. ABDOMEN: Soft, nontender, and nondistended. There is no rebound, voluntary guarding, or rigidity. : Deferred. No Guerra. EXTREMITIES: Non-edematous and not cyanotic. No clubbing. Good capillary refi ll. SKIN: No skin breakdown. Assessment/Plan: ASSESSMENT: NSTEMI, POA Syncope on 08/23/2025, POA Status post cardiac catheterization with findings of severe multivessel coronary artery disease with 99% proximal LAD stenosis, by Dr. Mushtaq Julian, 08/24/2025 s/p CABG 08/25/25 History of uncontrolled hyperlipidemia, POA Hypertension, POA Prediabetes, POA Nonobstructive carotid artery disease, POA Rule out obstructive sleep apnea, POA Obesity, POA Prior history of significant smoking, 35 pack year, quit smoking last year, POA Home Medications: Reported Medications Atorvastatin Calcium (LIPITOR) 40 Mg Tablet, 1 TAB PO DAILY for 30 Days, #30 TAB 0 Refills 08/27/25 Time spent arranging discharge: 31-60 minutes ATTESTATION BY PHYSICIAN I have seen and examined the patient. I reviewed the documentation, medical decision making, and treatment plan as noted by the mid-level provider above. I agree with the findings and plan of care. DHARA WEBER MD, KATARZYNA B [facility] Aug 29, 2025 10:04
[2025-08-29 11:00] VITALS: BP 114/78; PULSE 78; RESP 17; TEMP 98.4
--- NOTE | 2025-08-29 11:55 | NUR ---
Patient was discharged, all discharge documentation and personal items taken by patient and spouse. Patient informed to follow up with Dr. Cuco Reese and with Dr. Mondragon in 2 weeks. Patient to call office on Sunday to make follow up appointment. New scripts sent to [facility] in [facility]. IV and telemetry pack were removed, patient transported out of facility via wheelchair by LEEANNE Euceda.
--- NOTE | 2025-08-29 12:51 | PN ---
SUBJECTIVE: The patient is postop day #4 from the coronary artery bypass grafting. The patient is doing well and no operational complaints. OBJECTIVE: VITAL SIGNS: He is afebrile. Vital signs are stable. HEENT: Normocephalic, atraumatic. Extraocular movements intact. HEART: S1, S2 and regular. CHEST: His sternal wound has a gauze bandage. He has mild separation at the upper sternum at the skin level. The wound otherwise appears healthy. His chest tubes are out. LUNGS: Unlabored at rest. ABDOMEN: Reveals mild to moderate obesity with positive bowel sounds. EXTREMITIES: His EVH site is healing well on his leg. ASSESSMENT AND PLAN: * Status post coronary artery bypass grafting, postop day #4. Continue aspirin, Lasix, metoprolol, and cardiac rehab. Plan is discharge home today to the care of his . We will follow up in 2 weeks and Cardiology in 3 weeks. * Hypercholesterolemia. Lipitor at bedtime and low cholesterol, cardiac diet. * DVT prophylaxis. Continue Lovenox subQ q. day until he is discharged home. TID: [id number] RECEIPT: [id number]
--- NOTE | 2025-08-29 14:31 | HMCIMG ---
EXAM: CR Chest, 1 View. CLINICAL HISTORY: s/p CABG COMPARISON: 08/28/2025 FINDINGS: Status post CABG changes. LUNGS: Mild bibasilar atelectasis. Linear atelectasis in the left mid-lung zone. PLEURAL SPACES: No evidence of large pleural effusion. Bilateral CP angles are excluded from the exam. No pneumothorax. MEDIASTINUM: The cardiac size is stable. Median sternotomy wires. BONES: No aggressive appearing osseous lesion seen. IMPRESSION: 1. No acute findings. 2. Stable post-CABG changes. 3. Mild bibasilar atelectasis and linear atelectasis in the left mid-lung zone. /Collins
--- NOTE | 2025-08-30 20:11 | PN ---
SUBJECTIVE: The patient's postop day #3 from a coronary bypass grafting. The patient was transferred out of the ICU yesterday. His tubes and drains were removed. He has started to ambulate. OBJECTIVE: VITAL SIGNS: His vital signs show temperature 97.9. Blood pressure is 104/80. Respirations are 12. His pulse is 68. Oxygen saturation 98% on room air. HEENT: Normocephalic, atraumatic. Extraocular movements intact. CHEST: His sternal wound is healing well. His chest tubes have been removed. HEART: S1 and S2 irregular. LUNGS: His lungs are unlabored at rest. ABDOMEN: His abdomen reveals mild obesity with positive bowel sounds. EXTREMITIES: He has DOROTEO stockings on his lower extremities. LABORATORY DATA: His creatinine is 1.1. His white blood cell count is 10,800 which is stable. ASSESSMENT AND PLAN: * Status post coronary artery bypass grafting. Continue aspirin, metoprolol and Lasix. Continue sternal precautions and physical therapy/occupational therapy. Plan: Discharge home under the care of his in the next day or 2. * Hypercholesterolemia. Lipitor 40 mg p.o. at bedtime and low cholesterol, cardiac diet. * Deep venous thrombosis prophylaxis. Lovenox 30 mg subcutaneously daily. TID: [id number] RECEIPT: [id number]
== END 2025-08-29 12:00 | disposition home or self-care (01) | DRG 235 ==
LOC: 2DH 11:25 → 2CV 08-25 12:06 → 2CH 08-26 06:37 → 2DH 08-27 18:34
PROVIDERS: ADMIT Internal Medicine; ATTEND Internal Medicine
PROC: 0PH000Z Insertion of Rigid Plate Internal Fixation Device into Sternum, Open Approach (ICD-10-PCS; 2025-08-25)
PROC: 02L70CK Occlusion of Left Atrial Appendage with Extraluminal Device, Open Approach (ICD-10-PCS; 2025-08-25)
PROC: 30233R1 Transfusion of Nonautologous Platelets into Peripheral Vein, Percutaneous Approach (ICD-10-PCS; 2025-08-25)
PROC: 02100Z9 Bypass Coronary Artery, One Artery from Left Internal Mammary, Open Approach (ICD-10-PCS; principal; 2025-08-25 12:00)
PROC: 06BQ4ZZ Excision of Left Saphenous Vein, Percutaneous Endoscopic Approach (ICD-10-PCS; 2025-08-25 12:00)
PROC: 021209W Bypass Coronary Artery, Three Arteries from Aorta with Autologous Venous Tissue, Open Approach (ICD-10-PCS; 2025-08-25 12:00)
PROC: 06BP4ZZ Excision of Right Saphenous Vein, Percutaneous Endoscopic Approach (ICD-10-PCS; 2025-08-25 12:00)
DX: I25.10 Atherosclerotic heart disease of native coronary artery without angina pectoris (principal); I21.4 Non-ST elevation (NSTEMI) myocardial infarction; J95.1 Acute pulmonary insufficiency following thoracic surgery; Z68.41 Body mass index [BMI] 40.0-44.9, adult; E66.01 Morbid (severe) obesity due to excess calories; I10 Essential (primary) hypertension; I65.22 Occlusion and stenosis of left carotid artery; E03.9 Hypothyroidism, unspecified; D62 Acute posthemorrhagic anemia; F17.210 Nicotine dependence, cigarettes, uncomplicated; G47.30 Sleep apnea, unspecified; E83.51 Hypocalcemia; E78.00 Pure hypercholesterolemia, unspecified; R73.9 Hyperglycemia, unspecified; E78.2 Mixed hyperlipidemia; R73.03 Prediabetes; Z82.49 Family history of ischemic heart disease and other diseases of the circulatory system; Z79.899 Other long term (current) drug therapy; Z79.82 Long term (current) use of aspirin; Z71.6 Tobacco abuse counseling
CPT/HCPCS: 36415; 36430; 36600; 71045; 80048; 80053; 80061; 82330; 82435; 82803; 82947; 82948; 83036; 83605; 83735; 84100; 84132; 84295; 84443; 84484; 85018; 85025; 85027; 85347; 85384; 85610; 85730; 86850; 86900; 86901; 86923; 87641; 93005; 93306; 93312; 93325; 93356; 94002; 94150; A4450; A7048; G0378; J0169; J0612; J0690; J1644; J1650; J1815; J1938; J2003; J2151; J2250; J2270; J2371; J2440; J2704; J2720; J3010; J3475; J3480; J3490; J7030; J7040; J7120; P9034; P9045; P9047; A4213; A4215; A4216; A4221; A4222; A4223; A4649; A4663; A6204; C1713; C1776; C1887; J0283; J1308